=== PATIENT | female | born 1950 | race Caucasian/White ===

== ENCOUNTER 2018-04-03 15:02 | Emergency (ER) | payer MEDICARE, OTHER, SELFPAY ==
[2018-04-03 15:06] VITALS: BP 148/85; PULSE 85; RESP 20; TEMP 36.8; O2SAT 98; BMI 29.2
[2018-04-03 17:30] VITALS: BP 135/87; PULSE 76; RESP 18; O2SAT 98
[2018-04-03] MEDS: ONDANSETRON 4 MG ODT PO (17:35)
--- NOTE | 2018-04-03 17:37 | ED.BACK ---
HPI - Back Pain/Injury <Gloria Workman PA-C - Last Filed: 04/03/18 22:22> General Chief Complaint: Back Pain/Injury Stated Complaint: BAD PAIN LOWER RIGHT SIDE PAIN THROWING UP Time Seen by Provider: 04/03/18 17:24 Source: patient Mode of arrival: ambulatory Limitations: no limitations History of Present Illness HPI Narrative: This 67-year-old female comes in today due to onset of acute right flank pain at 10:00 a.m. this morning. She states that this is a constant achy pain but seems to have spasmodic episodes of really sharp pain that can radiate around to the front of her abdomen and pelvic area. She denies any exacerbating or alleviating features. She states she vomited 4 times this morning and has had nausea, so could not keep down any pain medication. She was given Zofran in the waiting room and states that her nausea is better now but pain is severe. She denies any fever, chills, or sweats. She denies any hematuria, dysuria or new urinary symptoms. She states that she has had some cold with a little bit of stuffy nose and cough, but that has not been worse today. She denies any chest pain or dyspnea. She denies any new pain or swelling in her extremities. No rashes or other complaints on systems review Related Data Home Medications Medication Instructions Recorded Confirmed HYDROCODONE/ACET 5/500 - 1 - 2 tab PO Q4-6H PRN #0 08/15/07 (Hydrocodon-Acetaminophen 5-500) trazodone 150 mg PO HS #0 08/15/07 albuterol sulfate [Ventolin HFA] 1 puff INH PRN PRN #0 03/28/16 diazepam 5 mg PO HSP PRN #0 03/28/16 calcium carbonate [Tums] 500 mg PO QDAY PRN #0 04/02/16 sennosides [senna] PO HS #0 10/27/17 Allergies Allergy/AdvReac Type Severity Reaction Status Date / Time No Known Drug Allergies Allergy Verified 04/03/18 17:34 Review of Systems <Gloria Workman PA-C - Last Filed: 04/03/18 22:22> Review of Systems All systems reviewed & are unremarkable except as noted in HPI and below PFSH <Gloria Workman PA-C - Last Filed: 04/03/18 22:22> Comment: Denies ETOH or street drugs Exam <PRADIP Francis Last Filed: 04/03/18 22:22> Narrative Exam Narrative: GENERAL APPEARANCE: Patient appears uncomfortable, in NAD HEENT: PERRL, EOMI, no scleral icterus NECK: Supple LUNGS: Clear to auscultation bilaterally. HEART: Rate and rhythm regular, normal S1 and S2, no S3 or S4. ABDOMEN: Soft, nondistended, bowel sounds present x 4 quadrants, no masses palpable, no hepatosplenomegaly. She has mild generalized tenderness, with moderate left CVAT and flank tenderness, no guarding or rebound EXTREMITIES: No edema, no cyanosis DERMATOLOGIC: No jaundice or exanthem NEUROLOGIC: Alert and oriented with normal speech and coordination Initial Vital Signs Initial Vital Signs: Vital Signs Temperature 98.3 F 04/03/18 15:06 Pulse Rate 85 04/03/18 15:06 Respiratory Rate 20 04/03/18 15:06 Blood Pressure 148/85 H 04/03/18 15:06 Pulse Oximetry 98 04/03/18 15:06 <Jose López DO - Last Filed: 04/04/18 00:13> Initial Vital Signs Initial Vital Signs: Vital Signs Temperature 98.3 F 04/03/18 15:06 Pulse Rate 85 04/03/18 15:06 Respiratory Rate 20 04/03/18 15:06 Blood Pressure 148/85 H 04/03/18 15:06 Pulse Oximetry 98 04/03/18 15:06 Course <PRADIP Francis Last Filed: 04/03/18 22:22> Additional Information: Patient felt significantly improved and was comfortable at the time of departure. Reviewed on CT she may have some small stones passing, no large stone or obstruction or other acute problem found. 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 She has pain medication at home and since nausea is resolved should be able to tolerate that as needed. She agreed to return if any acutely worsening symptoms again this weekend Orders Ordered: ED Orders 04/03/18 17:30 Complete Blood Count AUTO DIFF Stat Comprehensive Metabolic Panel Stat Lipase Stat 04/03/18 17:50 CT kidney ureter bladder (KUB) Stat Discontinued Medications Hydromorphone HCl (Dilaudid) 1 mg IV NOW ONE Stop: 04/03/18 17:51 Last Admin: 04/03/18 17:59 Dose: 1 mg Hydromorphone HCl (Dilaudid) 0.5 mg IV NOW ONE Stop: 04/03/18 19:02 Last Admin: 04/03/18 19:14 Dose: 0.5 mg Sodium Chloride (Normal Saline 0.9%) 1,000 mls @ 1,000 mls/hr IV BOLUS ONE Stop: 04/03/18 18:57 Last Infusion: 04/03/18 19:40 Dose: 0 mls/hr Admin: 04/03/18 17:58 Dose: 1,000 mls/hr Ketorolac Tromethamine (Toradol) 30 mg IV NOW ONE Stop: 04/03/18 17:51 Last Admin: 04/03/18 17:59 Dose: 30 mg Ondansetron HCl (Zofran Odt) 4 mg PO NOW ONE Stop: 04/03/18 17:35 Last Admin: 04/03/18 17:35 Dose: 4 mg Ondansetron HCl (Zofran Odt Prepack) 1 bottle MISC SEEINSTR ONE Stop: 04/03/18 19:17 Last Admin: 04/03/18 19:39 Dose: 1 bottle Vital Signs - 8 hr 04/03/18 17:30 04/03/18 18:30 04/03/18 19:44 Pulse Rate 76 71 77 Respiratory Rate 18 16 16 Blood Pressure [Left Arm] 135/87 128/70 120/68 Pulse Oximetry 98 98 98 <Jose López DO - Last Filed: 04/04/18 00:13> Orders Ordered: ED Orders 04/03/18 17:30 Complete Blood Count AUTO DIFF Stat Comprehensive Metabolic Panel Stat Lipase Stat 04/03/18 17:50 CT kidney ureter bladder (KUB) Stat Discontinued Medications Hydromorphone HCl (Dilaudid) 1 mg IV NOW ONE Stop: 04/03/18 17:51 Last Admin: 04/03/18 17:59 Dose: 1 mg Hydromorphone HCl (Dilaudid) 0.5 mg IV NOW ONE Stop: 04/03/18 19:02 Last Admin: 04/03/18 19:14 Dose: 0.5 mg Sodium Chloride (Normal Saline 0.9%) 1,000 mls @ 1,000 mls/hr IV BOLUS ONE Stop: 04/03/18 18:57 Last Infusion: 04/03/18 19:40 Dose: 0 mls/hr Admin: 04/03/18 17:58 Dose: 1,000 mls/hr Ketorolac Tromethamine (Toradol) 30 mg IV NOW ONE Stop: 04/03/18 17:51 Last Admin: 04/03/18 17:59 Dose: 30 mg Ondansetron HCl (Zofran Odt) 4 mg PO NOW ONE Stop: 04/03/18 17:35 Last Admin: 04/03/18 17:35 Dose: 4 mg Ondansetron HCl (Zofran Odt Prepack) 1 bottle MISC SEEINSTR ONE Stop: 04/03/18 19:17 Last Admin: 04/03/18 19:39 Dose: 1 bottle Vital Signs - 8 hr 04/03/18 17:30 04/03/18 18:30 04/03/18 19:44 Pulse Rate 76 71 77 Respiratory Rate 18 16 16 Blood Pressure [Left Arm] 135/87 128/70 120/68 Pulse Oximetry 98 98 98 MDM - Back Pain/Injury <Gloria Workman PA-C - Last Filed: 04/03/18 22:22> Lab Data Attestation: I reviewed the patient's lab results. Result diagrams: 04/03/18 17:30 04/03/18 17:30 Lab Results 04/03/18 04/03/18 Range/Units 17:30 17:30 WBC 11.0 (4.5-11.0) X10^3/uL RBC 4.74 (4.0-5.2) X10^6/uL Hgb 14.5 (12.0-16.0) g/dL Hct 43.2 (36-46) % MCV 91.1 (80-100) fL MCH 30.6 (26-34) PG MCHC 33.6 (30-36) % RDW 14.5 (11.6-14.8) % Plt Count 255 (150-400) X10^3/uL Neut % (Auto) 77.0 H (50-75) % Lymph % (Auto) 15.6 L (25-40) % Dickenson % (Auto) 5.7 (3-14) % Eos % (Auto) 0.6 L (2-4) % Baso % (Auto) 1.1 (0-2) % Neut # (Auto) 8500 H (2601-8776) /uL Sodium 142 (137-145) mmol/L Potassium 4.2 (3.4-5.1) mmol/L Chloride 105 (98-107) mmol/L Carbon Dioxide 28 (22-32) mmol/L BUN 13 (7-17) mg/dL Creatinine 0.60 (0.52-1.04) mg/dL Estimated GFR > 60.0 (>60) mL/min BUN/Creatinine Ratio 21.7 (6-22) Glucose 101 (80-110) mg/dL Calcium 9.4 (8.4-10.2) mg/dL Total Bilirubin 0.7 (0.2-1.3) mg/dL AST 28 (14-36) IU/L ALT 29 (9-52) IU/L Alkaline Phosphatase 101 (38-126) U/L Total Protein 7.7 (6.3-8.2) g/dL Albumin 4.5 (3.5-5.0) g/dL Globulin 3.2 (1.7-4.1) g/dL Albumin/Globulin Ratio 1.4 (1.0-2.8) Lipase 46 (23-300) U/L Urine Dip Bedside Urine Glucose Negative Bedside Urine Bilirubin - Negative Bedside Urine Ketone - Negative Urine Specific [place] 1.015 Bedside Urine Occult Blood - Negative Bedside Urine pH 8.0 Bedside Urine Protein - Negative Bedside Urine Urobilinogen - Negative Bedside Urine Nitrite - Negative Bedside Urine Leukocytes - Negative Esterase <Jose López DO - Last Filed: 04/04/18 00:13> Lab Data Lab Results 04/03/18 04/03/18 Range/Units 17:30 17:30 WBC 11.0 (4.5-11.0) X10^3/uL RBC 4.74 (4.0-5.2) X10^6/uL Hgb 14.5 (12.0-16.0) g/dL Hct 43.2 (36-46) % MCV 91.1 (80-100) fL MCH 30.6 (26-34) PG MCHC 33.6 (30-36) % RDW 14.5 (11.6-14.8) % Plt Count 255 (150-400) X10^3/uL Neut % (Auto) 77.0 H (50-75) % Lymph % (Auto) 15.6 L (25-40) % Dickenson % (Auto) 5.7 (3-14) % Eos % (Auto) 0.6 L (2-4) % Baso % (Auto) 1.1 (0-2) % Neut # (Auto) 8500 H (7328-3087) /uL Sodium 142 (137-145) mmol/L Potassium 4.2 (3.4-5.1) mmol/L Chloride 105 (98-107) mmol/L Carbon Dioxide 28 (22-32) mmol/L BUN 13 (7-17) mg/dL Creatinine 0.60 (0.52-1.04) mg/dL Estimated GFR > 60.0 (>60) mL/min BUN/Creatinine Ratio 21.7 (6-22) Glucose 101 (80-110) mg/dL Calcium 9.4 (8.4-10.2) mg/dL Total Bilirubin 0.7 (0.2-1.3) mg/dL AST 28 (14-36) IU/L ALT 29 (9-52) IU/L Alkaline Phosphatase 101 (38-126) U/L Total Protein 7.7 (6.3-8.2) g/dL Albumin 4.5 (3.5-5.0) g/dL Globulin 3.2 (1.7-4.1) g/dL Albumin/Globulin Ratio 1.4 (1.0-2.8) Lipase 46 (23-300) U/L Urine Dip Bedside Urine Glucose Negative Bedside Urine Bilirubin - Negative Bedside Urine Ketone - Negative Urine Specific [place] 1.015 Bedside Urine Occult Blood - Negative Bedside Urine pH 8.0 Bedside Urine Protein - Negative Bedside Urine Urobilinogen - Negative Bedside Urine Nitrite - Negative Bedside Urine Leukocytes - Negative Esterase Discharge Plan Departure Patient Disposition: Home Clinical Impression: Acute right flank pain, Kidney stone on right side Discharge Date/Time: 04/03/18 19:48 Interventions: ED Discharge Assessment Last Done: 04/03/18 19:38 Instructions: DI for Kidney Stones Activity Restrictions/Additional Instructions: please return as we talked about if you have acutely worsening symptoms. Since you are feeling better, it is okay for you to monitor at home. Take the antinausea medicine as needed today and tomorrow so that you can also take your pain medicine that you already have at home as needed. There are no clear problems found on your lab work today. Your CT scan showed that there might be some very small stone passing through your ureter. You did not have any large stones in your kidney on the right side, so it is possible that you have passed 1 or passing some little stones, but there is nothing that is blocking the kidney or urinary system. Please follow up with your PCP 1st thing next week if you are continuing to have any pain or nausea. Prescriptions: No Action trazodone 150 MG tablet 150 mg PO HS Qty: 0 RF: 0 HYDROCODONE/ACET 5/500 - (Hydrocodon-Acetaminophen 5-500) 1 - 2 tab PO Q4-6H PRN Qty: 0 RF: 0 albuterol sulfate [Ventolin HFA] 90 MCG/PUFF HFA aerosol inhaler 1 puff INH PRN PRNQty: 0 RF: 0 diazepam 5 MG tablet 5 mg PO HSP PRNQty: 0 RF: 0 calcium carbonate [Tums] 500 MG tablet,chewable 500 mg PO QDAY PRNQty: 0 RF: 0 sennosides [senna] 8.6 MG tablet PO HS Qty: 0 RF: 0 Referrals: Maximo Vivas MD [Primary Care Provider] - <Jose López DO - Last Filed: 04/04/18 00:13> Cosign ED Attending Rupal Attestation: I was available for consultation during this patient's emergency department encounter
--- NOTE | 2018-04-03 17:50 | DI.CT.S_ITS ---
PROCEDURE: CT KIDNEY URETER BLADDER (KUB) INDICATIONS: Right flank pain, ? stones TECHNIQUE: Noncontrast 5 mm thick sections acquired from the diaphragms to the symphysis. 5 mm thick coronal and sagittal reformats were then performed. For radiation dose reduction, the following was used: automated exposure control, adjustment of mA and/or kV according to patient size. COMPARISON: [facility], , L-SPINE WITHOUT CONTRAST, 03/08/2014, 19:48. FINDINGS: Image quality: Excellent. Lung bases: Lung bases are clear. Heart size is normal. There is a small hiatal hernia. Urinary system: Both kidneys are normal in size. No kidney stones. No hydronephrosis or perinephric fat stranding. Both ureters appear non-dilated throughout their expected courses. Multiple calcific densities in pelvis are most likely pelvic phleboliths. Bladder wall thickness is normal; no calcified bladder stones. Other solid organs: Liver is normal in size. Gallbladder is normal. Pancreas is normal in contours. Spleen is normal in size. No adrenal nodules. Peritoneum and bowel: Unenhanced bowel loops demonstrate normal wall thickness and caliber. A few colonic diverticula are noted. No active diverticulitis. No free fluid or air. Nodes and vessels: No retroperitoneal or mesenteric adenopathy by size criteria. Aorta and inferior vena cava are normal in caliber. Abdominal wall: No ventral hernias. Pelvis: No free pelvic fluid. No inguinal hernias or adenopathy. Bones: Mild non-acute compression deformity of T11. No suspicious bony lesions. 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 IMPRESSION: 1. No renal stone or hydronephrosis. Multiple calcific densities in pelvis are most likely pelvic phleboliths. Several calcifications are close to expected course of the right distal ureter. Tiny nonobstructive distal right ureteral stone(s) are felt unlikely but not definitively excluded. 2. Mild chronic compression deformity of T11. 3. Mild diverticulosis without diverticulitis. Dictated by: Yessenia Crespo M.D. on 04/03/2018 at 18:25 Approved by: Yessenia Crespo M.D. on 04/03/2018 at 18:33
[2018-04-03 17:57] LABS: Add Manual Diff / Slide Review NO; Basophils Percent Auto 1.1 % (0-2); Eosinophils Percent Auto 0.6 % (2-4); Hematocrit 43.2 % (36-46); Hemoglobin 14.5 g/dL (12.0-16.0); Lymphocytes Percent Auto 15.6 % (25-40); Mean Corpuscular HGB Conc 33.6 % (30-36); Mean Corpuscular Hemoglobin 30.6 PG (26-34); Mean Corpuscular Volume 91.1 fL (80-100); Monocytes Percent Auto 5.7 % (3-14); Neutrophils Absolute Auto 8500 /uL (3000-5900); Platelet Count 255 X10^3/uL (150-400); Red Blood Cell Count 4.74 X10^6/uL (4.0-5.2); Red Cell Distribution Width 14.5 % (11.6-14.8)
[2018-04-03] MEDS: SODIUM CHLORIDE 0.9% 1,000 ML 1000 ML IV (17:58)
[2018-04-03] MEDS: KETOROLAC 60 MG/2 ML VIAL 30 MG IV (17:59)
[2018-04-03] MEDS: HYDROMORPHONE 1 MG INJ IV (17:59)
[2018-04-03 18:03] LABS: Alanine Aminotransferase 29 IU/L (9-52); Albumin 4.5 g/dL (3.5-5.0); Albumin Globulin Ratio 1.4 (1.0-2.8); Alkaline Phosphatase 101 U/L (38-126); Aspartate Aminotransferase 28 IU/L (14-36); BUN Creatinine Ratio 21.7 (6-22); Bilirubin Total 0.7 mg/dL (0.2-1.3); Blood Urea Nitrogen 13 mg/dL (7-17); Calcium 9.4 mg/dL (8.4-10.2); Carbon Dioxide 28 mmol/L (22-32); Chloride 105 mmol/L (98-107); Estimated Glomerular Filt Rate > 60.0 mL/min (>60); Globulin 3.2 g/dL (1.7-4.1); Glucose 101 mg/dL (80-110); HEMOLYSIS < 15 (0-50); Lipase 46 U/L (23-300); Potassium 4.2 mmol/L (3.4-5.1); Sodium 142 mmol/L (137-145); Total Protein 7.7 g/dL (6.3-8.2)
--- NOTE | 2018-04-03 18:14 | PC.NURSE ---
Patient returned from imaging via stretcher.
[2018-04-03 18:30] VITALS: BP 128/70; PULSE 71; RESP 16; O2SAT 98
[2018-04-03] MEDS: HYDROMORPHONE 1 MG INJ 0.5 MG IV (19:14)
[2018-04-03] MEDS: ONDANSETRON 4 MG ODT PREPACK 1 BOTTLE MISC (19:39)
[2018-04-03 19:44] VITALS: BP 120/68; PULSE 77; RESP 16; O2SAT 98
== END 2018-04-03 19:48 | disposition home or self-care (01) ==
PROVIDERS: Emergency Provider Internal Medicine; PCP Family Medicine
DX: R10.9 Unspecified abdominal pain (principal); N20.0 Calculus of kidney
CPT/HCPCS: 36591; 74176; 80053; 81003; 83690; 85025; 96361; 96374; 96375; 96376; 99283; 99284; J1170; J1885

== ENCOUNTER → 2018-06-07 12:54 | Outpatient (CLI) | payer MEDICARE, OTHER, SELFPAY ==
--- NOTE | 2018-06-07 | DI.RAD.S_ITS ---
PROCEDURE: XR SINUS MIN 3V INDICATIONS: ACUTE RECURRENT SINUSITIS TECHNIQUE: 3 views of the sinuses were acquired. COMPARISON: [facility], , SINUSES MINIMUM 3 VIEWS, 09/21/2013, 14:23. FINDINGS: Sinuses: The visualized sinuses demonstrate no air-fluid levels or mucosal thickening. The visualized mastoids also appear clear. Bones: No suspicious bony lesions. Nasal septum is midline. IMPRESSION: Negative exam as above Dictated by: Kervin Medrano M.D. on 06/07/2018 at 13:48 Approved by: Kervin Medrano M.D. on 06/07/2018 at 13:49
== END ==
PROVIDERS: PCP Family Medicine; Visit Provider Family Medicine
DX: J01.01 Acute recurrent maxillary sinusitis (principal)
CPT/HCPCS: 70220

== ENCOUNTER → 2020-01-17 12:01 | Outpatient (CLI) | payer MEDICARE, OTHER, SELFPAY ==
--- NOTE | 2020-01-17 | DI.RAD.S_ITS ---
PROCEDURE: XR CHEST 2V INDICATIONS: Moderate persistent asthma, uncomplicated TECHNIQUE: 2 views of the chest were acquired. COMPARISON: None available for review. FINDINGS: Surgical changes and devices: None. Lungs and pleura: Lungs are clear. No pleural effusions or pneumothorax. Mediastinum: Mediastinal contours are normal. Heart size is normal. Thoracic aorta is tortuous in course. Bones and chest wall: No suspicious bony abnormalities. Soft tissues appear unremarkable. IMPRESSION: Chest without acute cardiopulmonary abnormalities. Dictated by: Cheng Patel M.D. on 01/17/2020 at 17:55 Approved by: Cheng Patel M.D. on 01/17/2020 at 17:56
== END ==
PROVIDERS: PCP Family Medicine; Referring Provider Family Medicine; Visit Provider Family Medicine
DX: J45.40 Moderate persistent asthma, uncomplicated (principal); I10 Essential (primary) hypertension
CPT/HCPCS: 71046

== ENCOUNTER → 2020-01-25 11:13 | Outpatient (CLI) | payer MEDICARE, OTHER, SELFPAY ==
--- NOTE | 2020-01-25 | DI.MG.S_ITS ---
BILATERAL DIGITAL SCREENING MAMMOGRAM 3D/2D WITH CAD: 01/25/2020 CLINICAL: Routine screening. Family history of breast cancer. Comparison is made to exams dated: 10/10/2016 mammogram, 06/01/2013 mammogram, and 05/27/2011 mammogram - [facility]. The tissue of both breasts is heterogeneously dense. This may lower the sensitivity of mammography. Current study was also evaluated with a Computer Aided Detection (CAD) system. There are benign vascular calcifications in both breasts. No significant masses, calcifications, or other findings are seen in either breast. There has been no significant interval change. IMPRESSION: There is no mammographic evidence of malignancy. A 1 year screening mammogram is recommended. This exam was interpreted at Station ID: [id number]. NOTE: For mammograms, a report in lay terms will be sent to the patient. Approximately 15% of breast malignancies will not be visualized mammographically. In the management of a palpable breast mass, a negative mammogram must not discourage biopsy of a clinically suspicious lesion. Electronically Signed By: Heather rowland/shanda:01/25/2020 12:58:36 letter sent: Normal Exam ACR BI-RADS Category 2: Benign Finding(s) 3342F
== END ==
PROVIDERS: PCP Family Medicine; Referring Provider Family Medicine; Visit Provider Family Medicine
DX: Z12.31 Encounter for screening mammogram for malignant neoplasm of breast (principal); Z80.3 Family history of malignant neoplasm of breast
CPT/HCPCS: 77063; 77067

== ENCOUNTER 2020-02-13 22:02 | Emergency (ER) | payer MEDICARE, OTHER, SELFPAY ==
--- NOTE | 2020-02-13 22:03 | ED_ITS ---
HPI - Extremity Injury (Lower) General Chief Complaint: Extremity Injury, Lower Stated Complaint: LEFT ANKLE INJURY Time Seen by Provider: 02/13/20 22:03 Source: patient Mode of arrival: Wheelchair Limitations: no limitations History of Present Illness HPI Narrative: 69-year-old female nonsmoker with noncontributory medical history presents by herself, in a wheelchair and a chief complaint of a left ankle injury suffered just prior to arrival. She was walking in her yd and stepped in a hole that she did not see, she inverted her left ankle and heard a pop. She denies any numbness, tingling or weakness. She states it hurts worse when she ambulates and improves with rest. She denies any knee or hip pain. She did not injure anything else when she fell. MD complaint: ankle injury Onset (ago): hour(s) Injury: Left: ankle Type of Injury: inversion Place: street/outdoors Severity: moderate Relieving factors: rest Exacerbating factors: weight bearing, movement and palpation Context: fall Associated symptoms: snap/pop sensation Other symptoms: none Treatments prior to arrival: cold therapy and bandage Related Data Home Medications Medication Instructions Recorded Confirmed HYDROCODONE/ACET 5/500 - 1 - 2 tab PO Q4-6H PRN #0 08/15/07 (Hydrocodon-Acetaminophen 5-500) trazodone 150 mg PO HS #0 08/15/07 albuterol sulfate [Ventolin HFA] 1 puff INH PRN PRN #0 03/28/16 diazepam 5 mg PO HSP PRN #0 03/28/16 calcium carbonate [Tums] 500 mg PO QDAY PRN #0 04/02/16 sennosides [senna] PO HS #0 10/27/17 Allergies Allergy/AdvReac Type Severity Reaction Status Date / Time No Known Drug Allergies Allergy Verified 04/03/18 17:34 Review of Systems Constitutional Constitutional: Denies chills, Denies fatigue, Denies fever(s), Denies frequent falls, Denies lethargy and Denies weakness Eyes Eyes: Denies change in vision, Denies eye discharge, Denies irritation and Denies loss of vision ENT Ears, Nose, Mouth, and Throat: Denies change in voice, Denies dizziness, Denies neck pain, Denies sore throat and Denies throat swelling Cardiovascular Cardiovascular: Denies chest pain, Denies irregular heart rhythm, Denies lightheadedness, Denies palpitations, Denies dyspnea, Denies dyspnea on exertion and Denies orthopnea Respiratory Respiratory: Denies cough, Denies dyspnea, Denies dyspnea on exertion and Denies wheezing Gastrointestinal Gastrointestinal: Denies abdominal pain, Denies change in bowel habits, Denies diarrhea, Denies nausea and Denies vomiting Musculoskeletal Musculoskeletal: Reports arthralgias, Reports joint swelling, Reports limited range of motion, Denies neck pain and Denies numbness Integumentary/Breasts Skin/Breast: Denies pruritus, Denies erythema, Denies rash and Denies wounds Neurologic Neurologic: Denies behavioral changes, Denies confusion, Denies dizziness, Denies frequent falls, Denies loss of vision, Denies numbness and Denies weakness Psychiatric Psychiatric: Denies anxiety, Denies behavioral changes, Denies confusion, Denies depression, Denies homicidal ideation and Denies suicidal ideation Endocrine Endocrine: Denies fatigue, Denies flushing and Denies palpitations Hematologic/Lymphatic Hematologic/Lymphatic: Denies easy bruising Allergic/Immunologic Allergic/Immunologic: Denies urticaria, Denies throat swelling and Denies wheezing Patient History Medical History History of spinal fracture (Resolved) Migraine (Chronic) Surgical History History of (Resolved) History of facial fracture repair (Resolved) Hx of lumbosacral spine surgery (Resolved) Social History Smoking Status: Never smoker Smoking Status: Never smoker Substance Use Type: does not use Exam Narrative Exam Narrative: GENERAL: [69] year old patient appears stated age. Well- nourished, well-developed patient, in mild distress. HEAD: Atraumatic. Normocephalic. EYES: Pupils equal round and reactive. Extraocular motions intact. No scleral icterus. No injection or drainage. ENT: Nose without bleeding, purulent drainage. Throat without erythema, tonsillar hypertrophy or exudate. Airway patent. NECK: Trachea midline. Non tender CARDIOVASCULAR: Regular rate and rhythm without murmurs, gallops, or rubs. RESPIRATORY: Clear to auscultation. Breath sounds equal bilaterally. No wheezes, rales, or rhonchi. GASTROINTESTINAL: Abdomen soft, non-tender, nondistended. EXTREMITIES: Full but painful range of motion of left ankle without evidence of ligamentous instability. Most tender to palpation just inferior to the medial malleolus. Minimal swelling surrounding lateral malleolus. No step-off at Achilles, calf squeeze results and plantar flexion. These injuries are closed, isolated a neurovascularly intact BACK: Nontender without deformity or crepitance. No flank tenderness. NEURO: AOx3. SKIN: No rash or erythema of visible areas Initial Vital Signs Initial Vital Signs: Vital Signs Temperature 97.4 F L 02/13/20 22:12 Pulse Rate 118 H 02/13/20 22:12 Respiratory Rate 22 02/13/20 22:12 Blood Pressure 176/77 H 02/13/20 22:12 Pulse Oximetry 99 02/13/20 22:12 Procedures Orthopedic Splinting/Casting Injury #1: Side: left Lower Extremity Injury Location: ankle Lower Extremity Immobilizer: boot orthosis Post splinting neuro exam: intact Post splinting vascular exam: intact Placed by: Nursing Additional Comments: patient has her own walker and crutches Course Orders Ordered: ED Orders 02/13/20 22:10 XR ankle LT min 3V Stat Vital Signs Vital signs: Vital Signs - 8 hr 02/13/20 22:12 02/13/20 23:02 Temperature 97.4 F L Pulse Rate 118 H 89 Respiratory Rate 22 18 Blood Pressure 176/77 H Pulse Oximetry 99 99 MDM - Extremity Injury (Lower) Imaging Data Extremity x-ray #1: Attestation: I personally reviewed and interpreted this imaging study as follows: My Impression: No yenni abnormality Discharge Plan Departure Patient Disposition: Home Clinical Impression: Ankle sprain and strain Discharge Date/Time: 02/13/20 23:02 Instructions: Ankle Sprain Activity Restrictions/Additional Instructions: *You have been diagnosed with [left ankle sprain *What to do: *Take medications as directed *Follow up with your primary care provider in 2-3 days, call for an appointment. Let them know you were seen in the Emergency Department and that we ask that you be seen in follow up *Return to ER if you should have any new, worsening or concerning symptoms Radiographic study has been interpreted by an emergency physician. The official diagnosis by radiology will be performed within the next 24 hours and should there be any change in outcome we will notify you of how to proceed. Prescriptions: No Action trazodone 150 MG tablet 150 mg PO HS Qty: 0 RF: 0 HYDROCODONE/ACET 5/500 - (Hydrocodon-Acetaminophen 5-500) 1 - 2 tab PO Q4-6H PRN Qty: 0 RF: 0 albuterol sulfate [Ventolin HFA] 90 MCG/PUFF HFA aerosol inhaler 1 puff INH PRN PRNQty: 0 RF: 0 diazepam 5 MG tablet 5 mg PO HSP PRNQty: 0 RF: 0 calcium carbonate [Tums] 500 MG tablet,chewable 500 mg PO QDAY PRNQty: 0 RF: 0 sennosides [senna] 8.6 MG tablet PO HS Qty: 0 RF: 0 Referrals: Maximo Vivas MD [Primary Care Provider] -
--- NOTE | 2020-02-13 22:10 | DI.RAD.S_ITS ---
PROCEDURE: XR ANKLE LT MIN 3V INDICATIONS: fall with ankle pain TECHNIQUE: 3 views of the ankle were acquired. COMPARISON: None. FINDINGS: Bones: No fractures or dislocations. Ankle mortise is normally aligned. No suspicious bony lesions. Soft tissues: No tibiotalar joint effusion. Achilles tendon appears normal. Lateral soft tissue swelling is noted and ligamentous injury cannot be excluded. IMPRESSION: No fracture. No osseous lesion. If symptoms and/or clinical suspicion for pathology persists, further assessment with repeat radiographs (7-10 days) or advanced imaging (e.g. CT, MRI or bone scan) may be helpful. Dictated by: Coty Salomon MD, PhD on 02/14/2020 at 8:32 Approved by: Coty Salomon MD, PhD on 02/14/2020 at 8:40
[2020-02-13 22:12] VITALS: BP 176/77; PULSE 118; RESP 22; TEMP 36.3; O2SAT 99
--- NOTE | 2020-02-13 22:23 | PC.NURSE ---
Stepped in deep hole outside around 11am, felt a pop and heard a snap. Increase pain throughout day. Unable to bear weight without pain. tender to palpation on lower leg, obvious swelling noted.
[2020-02-13 23:02] VITALS: PULSE 89; RESP 18; O2SAT 99
== END 2020-02-13 23:02 | disposition home or self-care (01) ==
PROVIDERS: Emergency Provider Emergency Medicine; PCP Family Medicine
DX: S93.402A Sprain of unspecified ligament of left ankle, initial encounter (principal); S96.912A Strain of unspecified muscle and tendon at ankle and foot level, left foot, initial encounter; X58.XXXA Exposure to other specified factors, initial encounter
CPT/HCPCS: 73610; 99283

== ENCOUNTER → 2020-03-08 09:14 | Outpatient (CLI) | payer MEDICARE, OTHER, SELFPAY ==
--- NOTE | 2020-03-08 | DI.RAD.S_ITS ---
PROCEDURE: XR LUMBAR SPINE 2-3V INDICATIONS: PAIN TECHNIQUE: 3 views of the lumbar spine were acquired. COMPARISON: [facility], , L-SPINE 2-3 VIEWS, 04/02/2016, 13:35. FINDINGS: Bones: 5 [id number] vertebrae are present. There is very mild rightward curvature of lumbar spine centered at L4 level. Degenerative endplate changes and bilateral facet arthrosis throughout lumbar spine is seen more prominent at L4-5 and L5-S1 levels. No vertebral body compression fractures. No suspicious bony lesions. Soft tissues: Overlying bowel gas pattern is normal. No suspicious soft tissue calcifications. IMPRESSION: Degenerative disc disease throughout lumbar spine more prominent at L4-5 and L5-S1 levels. Mild scoliosis as above. No compression fracture or spondylolisthesis. Dictated by: Monico Reed M.D. on 03/08/2020 at 10:14 Approved by: Monico Reed M.D. on 03/08/2020 at 10:30
--- NOTE | 2020-03-08 | DI.RAD.S_ITS ---
PROCEDURE: XR ANKLE LT MIN 3V INDICATIONS: PAIN TECHNIQUE: 3 views of the ankle were acquired. COMPARISON: [facility], CR, XR ANKLE LT MIN 3V, 02/13/2020, 22:16. FINDINGS: Bones: No fractures or dislocations. Ankle mortise is normally aligned. Osteoarthritic changes are noted involving anterior aspect of tibiotalar joint. No suspicious bony lesions. Soft tissues: No tibiotalar joint effusion. Achilles tendon appears normal. IMPRESSION: Mild anterior tibiotalar joint osteoarthritis. No fracture or dislocation. Dictated by: Monico Reed M.D. on 03/08/2020 at 10:30 Approved by: Monico Reed M.D. on 03/08/2020 at 10:40
--- NOTE | 2020-03-08 | DI.RAD.S_ITS ---
PROCEDURE: XR HIP W PEL IF DONE RT 2V INDICATIONS: PAIN TECHNIQUE: 4 views of the hip were acquired. COMPARISON: [facility], , HIP 2V LEFT, 02/27/2014, 16:33. FINDINGS: Bones: No fractures or dislocations. Mild to moderate right hip joint osteoarthritis is seen. No evidence of avascular necrosis of femoral heads. No suspicious bony lesions. The visualized pelvic ring appears intact. Soft tissues: No suspicious soft tissue calcifications or masses. IMPRESSION: Mild to moderate right hip joint osteoarthritis. No fracture or dislocation. No evidence of avascular necrosis. Dictated by: Monico Reed M.D. on 03/08/2020 at 10:13 Approved by: Monico Reed M.D. on 03/08/2020 at 10:14
== END ==
PROVIDERS: PCP Family Medicine; Referring Provider Family Medicine; Visit Provider Family Medicine
DX: M54.5 Low back pain (principal); M16.11 Unilateral primary osteoarthritis, right hip; M25.572 Pain in left ankle and joints of left foot; M19.072 Primary osteoarthritis, left ankle and foot; M51.36 Other intervertebral disc degeneration, lumbar region; M51.37 Other intervertebral disc degeneration, lumbosacral region; M41.9 Scoliosis, unspecified
CPT/HCPCS: 72100; 73502; 73610

== ENCOUNTER 2020-07-17 17:37 | Inpatient (IN) | payer MEDICARE, OTHER, SELFPAY ==
[2020-07-17 17:40] VITALS: BP 158/87; RESP 18; O2SAT 98
--- NOTE | 2020-07-17 17:46 | DI.RAD.S_ITS ---
PROCEDURE: XR CHEST 1V INDICATIONS: chest pain TECHNIQUE: One view of the chest was acquired. COMPARISON: [facility], CR, XR CHEST 2V, 01/17/2020, 11:55. FINDINGS: Surgical changes and devices: None. Lungs and pleura: Diffuse ill-defined ground-glass patchy opacities. Scott B lines seen in the right lung base. . No pleural effusions or pneumothorax. Mediastinum: Mediastinal contours appear normal. Heart size is normal. Bones and chest wall: Lateral curvature of the spine and discogenic changes. IMPRESSION: Increased diffuse ground-glass opacities and Scott B lines suggesting early pulmonary edema. Technically, atypical/viral pneumonia in the differential. If there is persistent clinical diagnostic uncertainty, continued surveillance with short interval chest radiographs after treatment is recommended. Dictated by: Kervin Medrano M.D. on 07/17/2020 at 18:05 Approved by: Kervin Medrano M.D. on 07/17/2020 at 18:07
[2020-07-17 18:16] LABS: INR 1.1 (0.9-1.3); Prothrombin Time 12.5 SECONDS (10.1-12.7)
[2020-07-17 18:19] LABS: PTT Partial Thromboplastin Tim 35 SECONDS (26.4-36.2)
[2020-07-17 18:21] LABS: Alanine Aminotransferase 13 IU/L (<35); Albumin 4.3 g/dL (3.5-5.0); Albumin Globulin Ratio 1.4 (1.0-2.8); Alkaline Phosphatase 67 U/L (38-126); Aspartate Aminotransferase 28 IU/L (14-36); Bilirubin Total 0.5 mg/dL (0.2-1.3); Blood Urea Nitrogen 11 mg/dL (7-17); Calcium 9.7 mg/dL (8.4-10.2); Carbon Dioxide 30 mmol/L (22-32); Chloride 103 mmol/L (98-107); Creatine Kinase 107 U/L (30-135); Estimated Glomerular Filt Rate > 60.0 mL/min (>60); Globulin 3.1 g/dL (1.7-4.1); Glucose 103 mg/dL (80-110); HEMOLYSIS 49 (0-50); Lipase 44 U/L (23-300); Potassium 3.5 mmol/L (3.4-5.1); Sodium 140 mmol/L (137-145); Total Protein 7.4 g/dL (6.3-8.2)
[2020-07-17 18:24] LABS: Add Manual Diff / Slide Review NO; Basophils Absolute Auto 100 /uL (0-100); Basophils Percent Auto 1.1 % (0-2); Eosinophils Absolute Auto 200 /uL (0-450); Eosinophils Percent Auto 2.3 % (2-4); Hematocrit 40.1 % (36-46); Hemoglobin 13.4 g/dL (12.0-16.0); Lymphocytes Absolute Auto 1400 /uL (1100-4500); Lymphocytes Percent Auto 13.5 % (25-40); Mean Corpuscular HGB Conc 33.3 % (30-36); Mean Corpuscular Hemoglobin 30.8 PG (26-34); Mean Corpuscular Volume 92.3 fL (80-100); Monocytes Absolute Auto 700 /uL (0-900); Monocytes Percent Auto 6.5 % (3-14); Neutrophils Absolute Auto 7800 /uL (1500-7000); Neutrophils Percent Auto 76.6 % (50-75); Platelet Count 254 X10^3/uL (150-400); Red Blood Cell Count 4.34 X10^6/uL (4.0-5.2); Red Cell Distribution Width 14.3 % (11.6-14.8); White Blood Cell Count 10.3 X10^3/uL (4.5-11.0)
[2020-07-17 18:33] LABS: Troponin I 0.025 ng/mL (0.01-0.034)
[2020-07-17 18:36] LABS: CKMB % Relative Index 1.1 % (1.5-5.0); Creatine Kinase MB 1.16 ng/mL (<2.37)
[2020-07-17 19:16] LABS: COVID19 -Nasal RAPID Negative (Negative)
[2020-07-17 19:17] LABS: NT-proBNP (BNP-Adult 18+) 1480 pg/mL (<125)
--- NOTE | 2020-07-17 19:32 | ED.CHESTPAIN ---
HPI - Chest Pain General Chief Complaint: Chest Pain Stated Complaint: SOB,Chest Pressure, Sleepless Time Seen by Provider: 07/17/20 17:59 Source: patient Mode of arrival: Ambulatory Limitations: no limitations History of Present Illness HPI narrative: Patient is a 70-year-old female. No prior cardiac history. Here for evaluation of shortness of breath and chest pressure. She states that she has had shortness of breath with exertion over the past several weeks and specifically over the past week. States she cannot lie flat because she is gasping for air. States she has to stop with going up a flight of stairs. Has no lower extremity swelling. Has not done anything about her symptoms prior to arrival. She came into the emergency department today upon her chin by family members. She does have a pulse oximeter at home and states that she occasionally has her oxygen saturations in the mid upper 80s. She also states that her heart rate varies from the 90s to 130s. Related Data Home Medications Medication Instructions Recorded Confirmed albuterol sulfate [Ventolin HFA] 1 puff INH PRN PRN #0 03/28/16 07/17/20 sennosides [senna] 17.2 mg PO HS #0 10/27/17 07/17/20 alprazolam 0.125 mg PO QPM 07/17/20 07/17/20 cyclobenzaprine 10 mg PO QPM 07/17/20 07/17/20 docusate sodium [Colace] 200 mg PO DAILY 07/17/20 07/17/20 trazodone 300 mg PO QPM 07/17/20 07/17/20 Allergies Allergy/AdvReac Type Severity Reaction Status Date / Time No Known Drug Allergies Allergy Verified 04/03/18 17:34 Review of Systems Constitutional Constitutional: Denies chills, Denies fatigue, Denies fever(s) and Denies headache(s) ENT Ears, Nose, Mouth, and Throat: Denies headache(s) Cardiovascular Cardiovascular: Reports chest pain, Denies rapid heart rate, Reports dyspnea, Reports dyspnea on exertion and Reports orthopnea Respiratory Respiratory: Denies cough, Reports dyspnea and Reports dyspnea on exertion Gastrointestinal Gastrointestinal: Denies abdominal pain, Denies nausea and Denies vomiting Genitourinary Genitourinary: Denies dysuria Genitourinary: Denies dysuria Musculoskeletal Musculoskeletal: Denies arthralgias and Denies myalgias Integumentary/Breasts Skin/Breast: Denies lesions and Denies rash Neurologic Neurologic: Denies behavioral changes and Denies headache(s) Psychiatric Psychiatric: Denies behavioral changes Endocrine Endocrine: Denies fatigue Hematologic/Lymphatic Hematologic/Lymphatic: Denies easy bleeding and Denies easy bruising Allergic/Immunologic Allergic/Immunologic: Denies urticaria Patient History Medical History History of spinal fracture Migraine Surgical History History of History of facial fracture repair Hx of lumbosacral spine surgery Social History household members: family Smoking Status: Never smoker alcohol intake: never Smoking Status: Never smoker Substance Use Type: does not use Exam Initial Vital Signs Initial Vital Signs: Vital Signs Respiratory Rate 18 07/17/20 17:40 Blood Pressure 158/87 H 07/17/20 17:40 Pulse Oximetry 98 07/17/20 17:40 Const General: cooperative and comfortable Limitations: mental status not altered HENMT Head: normal to inspection and normocephalic Resp Effort & Inspection: not tachypneic Auscultation: clear to auscultation bilaterally Cardio Rate: tachycardic Rhythm: regular rhythm Pulses: radial pulses present GI Inspection: non-distended Palpation: soft Skin Lesions: no lesions Rashes: no rashes Neuro General: patient alert, patient awake and patient oriented x3 Cognition: normal cognition Speech: speech normal Extrem General: capillary refill normal and No edema Psych Appearance: grossly normal and well kempt Course Orders Ordered: ED Orders 07/17/20 17:46 XR chest 1V Stat 07/17/20 17:51 EKG-12 Lead Stat 07/17/20 17:58 Complete Blood Count AUTO DIFF Stat Comprehensive Metabolic Panel Stat Lipase Stat NT-proBNP (BNP-Adult 18+) Stat Partial Thromboplastin Time Stat Prothrombin Time INR Stat Troponin & CK Cardiac Panel Stat 07/17/20 18:50 COVID19 Stat 07/17/20 19:32 CT angio chest PE protocol Stat 07/17/20 20:56 Troponin & CK Cardiac Panel Stat Acetaminophen (Acetaminophen 325 Mg Tablet) 650 mg PO Q6HR PRN PRN Reason: Fever/Mild Pain (1-3) Al Hydrox/Mg Hydrox/Simethicone (Mag Hydrox/Alum/Simeth 30 Ml Udc) 30 ml PO Q6HR PRN PRN Reason: Dyspepsia Albuterol (Albuterol Hfa Mdi 60 Puff/8 Gm Inhaler) 1 puff INH PRN PRN PRN Reason: Shortness Of Breath Alprazolam (Alprazolam 0.25 Mg Tablet) 0.125 mg PO QPM [facility] Cyclobenzaprine HCl (Cyclobenzaprine 10 Mg Tablet) 10 mg PO QPM JUDIE Docusate Sodium (Docusate 100 Mg Capsule) 100 mg PO BID PRN PRN Reason: constipation Enoxaparin Sodium (Enoxaparin 40 Mg/0.4 Ml Syringe) 40 mg SUBCUT DAILY [facility] Furosemide (Furosemide 20 Mg Tablet) 20 mg PO DAILY [facility] Ibuprofen (Ibuprofen 600 Mg Tablet) 600 mg PO Q6HR PRN PRN Reason: Fever/Mild Pain (1-3) Lisinopril (Lisinopril 10 Mg Tablet) 10 mg PO DAILY [facility] Naloxone HCl (Naloxone 0.4 Mg/Ml Vial) 0.2 mg IV Q2MIN PRN PRN Reason: Opiate Reversal Ondansetron HCl (Ondansetron 4 Mg Odt) 4 mg PO Q8HR PRN PRN Reason: Nausea And Vomiting Sennosides (Sennosides 8.6 Mg Tablet) 17.2 mg PO BEDTIME PRN PRN Reason: constipation Sennosides (Sennosides 8.6 Mg Tablet) 17.2 mg PO BEDTIME JUDIE Trazodone HCl (Trazodone 50 Mg Tablet) 300 mg PO QPM JUDIE Discontinued Medications Alprazolam (Alprazolam 0.25 Mg Tablet) 0.125 mg PO QPM JUDIE Alprazolam (Alprazolam 0.25 Mg Tablet) 0.125 mg PO NOW ONE Stop: 07/18/20 01:20 Cyclobenzaprine HCl (Cyclobenzaprine 10 Mg Tablet) 10 mg PO QPM [facility] Docusate Sodium (Docusate 100 Mg Capsule) 200 mg PO DAILY [facility] Furosemide (Furosemide 100 Mg/10 Ml Vial) 60 mg IV NOW ONE Stop: 07/17/20 21:40 Last Admin: 07/17/20 21:49 Dose: 60 mg Documented by: AYAKA Furosemide (Furosemide 20 Mg Tablet) 20 mg PO BID JUDIE Nitroglycerin (Nitroglycerin Oint 1 Inch/Gm Oint...G.) 1 inch TOP NOW ONE Stop: 07/17/20 23:29 Trazodone HCl (Trazodone 50 Mg Tablet) 300 mg PO QPM JUDIE Trazodone HCl (Trazodone 50 Mg Tablet) 300 mg PO NOW ONE Stop: 07/18/20 01:18 Vital Signs Vital signs: Vital Signs - 8 hr 07/17/20 20:30 07/17/20 21:04 07/17/20 21:30 Pulse Rate 119 H 119 H Respiratory Rate 22 22 Blood Pressure 153/100 H Pulse Oximetry 91 91 MDM - Chest Pain Lab Data Attestation: I reviewed the patient's lab results. Result diagrams: 07/17/20 17:58 07/17/20 17:58 Labs: Lab Results 07/17/20 07/17/20 07/17/20 Range/Units 17:58 17:58 17:58 WBC 10.3 (4.5-11.0) X10^3/uL RBC 4.34 (4.0-5.2) X10^6/uL Hgb 13.4 (12.0-16.0) g/dL Hct 40.1 (36-46) % MCV 92.3 (80-100) fL MCH 30.8 (26-34) PG MCHC 33.3 (30-36) % RDW 14.3 (11.6-14.8) % Plt Count 254 (150-400) X10^3/uL Neut % (Auto) 76.6 H (50-75) % Lymph % (Auto) 13.5 L (25-40) % [place] % (Auto) 6.5 (3-14) % Eos % (Auto) 2.3 (2-4) % Baso % (Auto) 1.1 (0-2) % Neut # (Auto) 7800 H (6935-6439) /uL Lymph # (Auto) 1400 (3637-9689) /uL [place] # (Auto) 700 (0-900) /uL Eos # (Auto) 200 (0-450) /uL Baso # (Auto) 100 (0-100) /uL PT 12.5 (10.1-12.7) SECONDS INR 1.1 (0.9-1.3) APTT 35 (26.4-36.2) SECONDS Sodium 140 (137-145) mmol/L Potassium 3.5 (3.4-5.1) mmol/L Chloride 103 (98-107) mmol/L Carbon Dioxide 30 (22-32) mmol/L BUN 11 (7-17) mg/dL Creatinine 0.58 (0.52-1.04) mg/dL Estimated GFR > 60.0 (>60) mL/min BUN/Creatinine Ratio 19.0 (6-22) Glucose 103 (80-110) mg/dL Calcium 9.7 (8.4-10.2) mg/dL Total Bilirubin 0.5 (0.2-1.3) mg/dL AST 28 (14-36) IU/L ALT 13 (<35) IU/L Alkaline Phosphatase 67 (38-126) U/L Total Creatine Kinase 107 (30-135) U/L CK-MB (CK-2) 1.16 (<2.37) ng/mL CK-MB (CK-2) Rel Index 1.1 L (1.5-5.0) % Troponin I 0.025 (0.01-0.034) ng/mL NT-Pro-B Natriuret Pep (<125) pg/mL Total Protein 7.4 (6.3-8.2) g/dL Albumin 4.3 (3.5-5.0) g/dL Globulin 3.1 (1.7-4.1) g/dL Albumin/Globulin Ratio 1.4 (1.0-2.8) Lipase 44 (23-300) U/L COVID-19 PCR (Negative) 07/17/20 07/17/20 07/17/20 Range/Units 17:58 18:50 20:56 WBC (4.5-11.0) X10^3/uL RBC (4.0-5.2) X10^6/uL Hgb (12.0-16.0) g/dL Hct (36-46) % MCV (80-100) fL MCH (26-34) PG MCHC (30-36) % RDW (11.6-14.8) % Plt Count (150-400) X10^3/uL Neut % (Auto) (50-75) % Lymph % (Auto) (25-40) % [place] % (Auto) (3-14) % Eos % (Auto) (2-4) % Baso % (Auto) (0-2) % Neut # (Auto) (1565-4003) /uL Lymph # (Auto) (0879-7578) /uL [place] # (Auto) (0-900) /uL Eos # (Auto) (0-450) /uL Baso # (Auto) (0-100) /uL PT (10.1-12.7) SECONDS INR (0.9-1.3) APTT (26.4-36.2) SECONDS Sodium (137-145) mmol/L Potassium (3.4-5.1) mmol/L Chloride (98-107) mmol/L Carbon Dioxide (22-32) mmol/L BUN (7-17) mg/dL Creatinine (0.52-1.04) mg/dL Estimated GFR (>60) mL/min BUN/Creatinine Ratio (6-22) Glucose (80-110) mg/dL Calcium (8.4-10.2) mg/dL Total Bilirubin (0.2-1.3) mg/dL AST (14-36) IU/L ALT (<35) IU/L Alkaline Phosphatase (38-126) U/L Total Creatine Kinase 100 (30-135) U/L CK-MB (CK-2) TNP (<2.37) ng/mL CK-MB (CK-2) Rel Index TNP (1.5-5.0) % Troponin I 0.023 (0.01-0.034) ng/mL NT-Pro-B Natriuret Pep 1480 H (<125) pg/mL Total Protein (6.3-8.2) g/dL Albumin (3.5-5.0) g/dL Globulin (1.7-4.1) g/dL Albumin/Globulin Ratio (1.0-2.8) Lipase (23-300) U/L COVID-19 PCR Negative (Negative) Imaging Data Chest x-ray: Radiologist's Impression: [address] [id number] ReportSigned Patient: Ava Lynn FMR#: [id number]: 1950cct:[id number]/Sex: 70 / FDate of Service: 07/17/20Lo: EDAccession Number: [id number] Procedure: XR chest 1V Ordering Provider: Sandra Connors D.O. PROCEDURE: XR CHEST 1V INDICATIONS: chest pain TECHNIQUE: One view of the chest was acquired. COMPARISON: [facility], , XR CHEST 2V, 01/17/2020, 11:55. FINDINGS: Surgical changes and devices: None. Lungs and pleura: Diffuse ill-defined ground-glass patchy opacities. Scott B lines seen in the right lung base. . No pleural effusions or pneumothorax. Mediastinum: Mediastinal contours appear normal. Heart size is normal. Bones and chest wall: Lateral curvature of the spine and discogenic changes. IMPRESSION: Increased diffuse ground-glass opacities and Scott B lines suggesting early pulmonary edema. Technically, atypical/viral pneumonia in the differential. If there is persistent clinical diagnostic uncertainty, continued surveillance with short interval chest radiographs after treatment is recommended. Dictated by: Kervin Medrano M.D. on 07/17/2020 at 18:05 Approved by: Kervin Medrano M.D. on 07/17/2020 at 18:07 CT scan - chest: Radiologist's Impression: [address] Scan ReportSigned Patient: Ava Lynn R#: [id number]: 1950cct:[id number]/Sex: 70 / FDate of Service: 07/17/20Lo: EDAccession Number: [id number] Procedure: CT angio chest PE protocol Ordering Provider: Jose López D.O. PROCEDURE: CT ANGIO CHEST PE PROTOCOL INDICATIONS: Chest pain, shortness of breath, tachycardia TECHNIQUE: After the administration of intravenous contrast, 2 mm thick sections acquired from the pulmonary apices to the posterior costophrenic angles. 3-dimensional maximum intensity projection (MIP) coronal and sagittal reformats were then acquired through the thorax. For radiation dose reduction, the following was used: automated exposure control, adjustment of mA and/or kV according to patient size. COMPARISON: [facility], XR CHEST 1V, 07/17/2020, 17:58. FINDINGS: Image quality: Excellent. Pulmonary arteries: Pulmonary arteries are normal in size, and demonstrate no intraluminal filling defects to suggest central pulmonary embolism. Lungs and pleura: No pneumothorax. Trace bilateral pleural effusions. No focal consolidation however diffuse ground-glass opacities in the lung bases with thickened appearance of the interlobular septal lines. Mediastinum: Heart size is mildly enlarged, without pericardial effusion. Coronary artery calcifications are present. Shotty hilar and mediastinal lymph nodes without definite pathologic enlargement by size criteria. Thoracic aorta is normal in caliber and enhancement. No suspicious bony lesions. Small hiatal hernia. Ribs and thoracic spine appear intact throughout. Thyroid is grossly unremarkable No axillary or supraclavicular adenopathy. Abdomen: Visualized upper abdominal solid organs appear normal in the early arterial phase of enhancement. IMPRESSION: No evidence of pulmonary embolism Scattered ground-glass opacities and smooth thickening of the interlobular septal lines in keeping with early pulmonary edema. Trace bilateral pleural effusions. Small hiatal hernia Dictated by: Kervin Medrano M.D. on 07/17/2020 at 19:55 ECG Data Attestation: I personally reviewed and interpreted this ECG as follows: Prior ECG tracings: not available for review Interpretation: Sinus tachycardia Ventricular rate 127 Frequent PVCs in a bigeminy pattern Normal QRS LVH Nonspecific ST T wave changes MDM Narrative Medical decision making narrative: Patient's chest x-ray is concerning for fluid overload, the CT scan shows no signs of pulmonary embolism but also is concerning for pulmonary edema. Does have an elevated BNP. Patient denies any prior history of heart failure or coronary artery disease. Troponins detectable but not positive. They are unchanged x2. Is tachycardic on her EKG however is in a bigeminy pattern. She was given Lasix here in the ER. Was somewhat hypertensive. Patient has not had cardiac workup testing or an echocardiogram per report. I discussed the case with KILEY Azul the [facility] provider. Will admit for continued testing testing. Discuss this with the patient. She expressed understanding and agreement. Discharge Plan Departure Patient Disposition: Admitted as Observation Clinical Impression: CHF (congestive heart failure) Admit Date/Time: 07/17/20 22:26 Admit Provider: Chloe Azul
[2020-07-17 20:30] VITALS: PULSE 119; RESP 22; O2SAT 91
[2020-07-17 21:04] VITALS: BP 153/100
[2020-07-17 21:16] LABS: Creatine Kinase 100 U/L (30-135)
[2020-07-17 21:30] VITALS: PULSE 119; RESP 22; O2SAT 91
[2020-07-17 21:30] LABS: Troponin I 0.023 ng/mL (0.01-0.034)
[2020-07-17] MEDS: FUROSEMIDE 100 MG/10 ML VIAL 60 MG IV (21:49)
--- NOTE | 2020-07-17 23:20 | DI.NM.S_ITS ---
PROCEDURE: NM ISAAC PERF SPECT REST & STR Rest and exercise myocardial perfusion SPECT with gated imaging and ejection fraction RADIOPHARMACEUTICAL: 13.4 mCi Tc-99m sestamibi IV at rest and 27.0 mCi Tc-99m sestamibi IV at peak exercise. A two day-protocol was performed. INDICATIONS: SOB, CP TECHNIQUE: Radiopharmaceutical was injected at peak stress test, and also at rest. SPECT images were obtained. SPECT myocardial perfusion images were displayed in short axis, horizontal long axis, and vertical long axis views. Gated images were reviewed using Clarient software. COMPARISON: None. CARDIAC STRESS: A standard Prashant treadmill exercise tolerance test was performed by the patient under the supervision of an attending staff. The patient exercised for 4 minutes and 3 seconds; functional aerobic impairment (ALBA) is +34%. Hemodynamic data: There is normal blood pressure and heart rate response to exercise stress. Patient achieved 129% of maximum predicted heart rate at peak exercise. Symptoms: Patient denied chest pain during exercise. Significant dyspnea with exercise. EKG: No diagnostic EKG changes of ischemia; frequent PVCs throughout the study. FINDINGS: Raw data: There is good myocardial labeling by radiotracer. No significant motion artifacts. Vnmi-hy-lcqlp ratio is 0.32 (normal is less than 0.38 for sestamibi tracer, and less than 0.50 for thallium tracer). Left ventricle function: Gated images demonstrate global hypokinesis. No transient ischemic dilation; TID is 1.01 (normal less than 1.3). The left ventricle resting end-diastolic volume is 185 mL. Left ventricle stress ejection fraction is 26%; normal values are above 45%. Myocardial perfusion: There is a fixed moderately intense defect in the apex, the inferior wall, and the inferolateral wall consistent with prior infarction with no significant ischemia. SSS 20. IMPRESSION: Abnormal treadmill nuclear stress test consistent with prior infarction and no ischemia. 1) There is a fixed moderately intense defect in the apex, the inferior wall, and the inferolateral wall consistent with prior infarction with no significant ischemia. SSS 20. 2) Mildly enlarged left ventricle with severely reduced systolic function (EF post stress 26%). 3) No diagnostic ECG evidence of ischemia. Frequent PVCs throughout the study. 4) No angina during the study. Significant dyspnea with exercise. 5) Reduced exercise tolerance (7.0 METs, ALBA +34%). Target heart rate achieved. Appropriate BP response to exercise. 6) No prior nuclear stress test available for comparison. Dictated by: Price Correia MD on 07/18/2020 at 17:14 Approved by: Price Correia MD on 07/18/2020 at 17:19
--- NOTE | 2020-07-17 23:21 | DI.ECHO.S_ITS ---
[facility] +---------+ : : [address] : : : : [id number] : : : : Phone: [phone] Echocardiogram Report + + :Name: ALEC BANG Study Date: 07/18/2020 Height: 63 in : :[facility] Weight: 167 lb : : Gender: Female BSA: 1.8 m2 : :: 1950 Age: 70 yrs BP: 144/87 mmHg: :Reason For Study: SOB, CHEST PAIN : :Ordering Physician: : :MIGEL REYES PHTHALIC ACID PURIFIER-BC Performed By: Norma Harrell : :Referring: MIGEL REYES : + + Interpretation Summary The left ventricle is mild-moderately dilated. The ejection fraction is estimated to be 15-20%. There is severe global hypokinesis of the left ventricle. There is no obvious LV thrombus. The right ventricle is normal in size and function. The left atrium is severely dilated. There is moderate mitral regurgitation. There is mild tricuspid regurgitation. The right ventricular systolic pressure is estimated to be at least 34 mmHg based on an estimated right atrial pressure of 3 mm Hg. Procedure: A two-dimensional transthoracic echocardiogram with color flow and Doppler was performed. The study quality was technically adequate. There is no prior echocardiogram noted for this patient. The heart rate ranged between 83-104 bpm during the study. The patient was in normal sinus rhythm during the exam. Left Ventricle: The estimated left ventricular end diastolic volume is 137 ml. The left ventricle is mild-moderately dilated. There is normal left ventricular wall thickness. There is no thrombus. The ejection fraction is estimated to be 15-20%. There is severe global hypokinesis of the left ventricle. Diastolic function could not be accurately assessed due to tachycardia. Right Ventricle: The right ventricle is normal in size and function. Atria: The left atrium is severely dilated. Right atrial size is normal. There is no Doppler evidence for an interatrial shunt. Mitral Valve: The mitral valve leaflets appear mildly thickened, but open well. There is mild mitral annular calcification. The mitral valve chordae are thickened and/or calcified. Tented mitral leaflets. There is moderate mitral regurgitation. Aortic Valve: The aortic valve is trileaflet. The aortic valve opens well. The aortic valve is not well visualized. There is no aortic valve stenosis. No aortic regurgitation is present. Tricuspid Valve: The tricuspid valve is not well visualized, but is grossly normal. The right ventricular systolic pressure is estimated to be at least 34 mmHg based on an estimated right atrial pressure of 3 mm Hg. There is mild tricuspid regurgitation. Pulmonic Valve: The pulmonic valve is not well seen, but is grossly normal. There is no pulmonic valvular regurgitation. Great Vessels: The aortic root is normal size. The dimensions of the ascending aorta are normal. The IVC is of normal diameter and collapses greater than 50% with a sniff. This suggests a low right atrial pressure of 3 mm Hg. Pericardium/ Pleura There is no pericardial effusion. There is an anterior echo-free space consistent with a fat pad. There is no pleural effusion. MMode/2D Measurements & Calculations LVIDd: 5.2 cm LVOT diam: 2.1 cm LVIDs: 4.9 cm Ao root diam: 3.1 cm FS: 5.3 % asc Aorta Diam: 2.9 cm EPSS: 2.4 cm Ao Arch Diam (Prox Trans): 2.6 cm IVSd: 0.90 cm LVPWd: 0.90 cm LV alvarado. diameter/BSA (cm/m^2): 2.9 LV sys. diameter/BSA (cm/m^2): 2.7 LA A2 area: 27.0 cm2 RA long axis: 4.9 cm LA A4 area: 20.9 cm2 RA area: 14.0 cm2 LA length (vol): 5.7 cm RA vol: 33.9 ml LA vol: 84.9 ml RA : 18.9 ml/m2 LA vol index: 47.4 ml/m2 IVC diam: 1.6 cm RVD1 (basal): 2.9 cm TAPSE: 1.8 cm Doppler Measurements & Calculations Ao V2 max: 111.5 cm/sec LVOT Max Giovanni: 69.3 cm/sec Ao V2 mean: 80.9 cm/sec LV V1 max P.9 mmHg Ao max P.0 mmHg LV V1 VTI: 12.8 cm Ao mean P.9 mmHg KAN(I,D): 2.1 cm2 Ao V2 VTI: 21.0 cm KAN(V,D): 2.1 cm2 sev ratio: 0.61 KAN indexed to BSA (cm^2/m^2): 1.2 MV E max giovanni: 112.8 cm/sec TR max giovanni: 276.2 cm/sec MV A max giovanni: 2.3 cm/sec TR max P.5 mmHg MV E/A: 49.2 PA V2 max: 72.3 cm/sec Lat Peak E' Giovanni: 8.1 cm/sec PA V2 mean: 51.7 cm/sec E/E' lat: 14.0 PA mean P.2 mmHg MV dec time: 0.09 sec PA pr(Accel): 32.8 mmHg MR ERO: 0.20 cm2 MR PISA: 3.0 cm2 SV(LVOT): 43.9 ml MR flow rate: 98.8 cm3/sec MR PISA radius: 0.69 cm Reading Physician:11:48 AM
[2020-07-17 23:34] VITALS: BP 138/80; PULSE 112; RESP 19; O2SAT 95
[2020-07-18] VITALS (22 sets, daily range): BP systolic 95–144; BP diastolic 60–87; PULSE 96–125; RESP 14–20; TEMP 36.1–37; O2SAT 93–96; BMI 29.2
--- NOTE | 2020-07-18 01:25 | RT ---
Discussed with KILEY Azul indication for ABG around 0115. ABG is not indicated for pt at this time because pt is on RA with SpO2 94%-95%, RR 16-18, and is not in respiratory distress. Recommending to D/C ABG, give diuretics, and start home regimen of Advair BID and Albuterol MDI PRN for plan of care.
[2020-07-18] MEDS: DOCUSATE 100 MG CAPSULE PO ×3 (02:10→21:30)
[2020-07-18] MEDS: ALPRAZolam 0.25 MG TABLET 0.125 MG PO ×2 (02:10→16:55)
[2020-07-18] MEDS: TRAZODONE 50 MG TABLET 300 MG PO ×2 (02:11→22:44)
[2020-07-18] MEDS: SENNOSIDES 8.6 MG TABLET 17.2 MG PO ×2 (02:11→21:08)
[2020-07-18] MEDS: CYCLOBENZAPRINE 10 MG TABLET PO ×2 (02:12→22:44)
--- NOTE | 2020-07-18 03:29 | PC.NURSE ---
pt was satting at mid 80's and the nurse reminded pt to take deep breaths and O2 went up to 95%, pt said she would like to hold off on O2 and try to keep taking deep breaths and then a few minutes later she asked for ordered O2, pt at 2liters of O2 and at 93-95%.
[2020-07-18 06:25] LABS: Add Manual Diff / Slide Review NO; Basophils Absolute Auto 100 /uL (0-100); Basophils Percent Auto 0.7 % (0-2); Eosinophils Absolute Auto 200 /uL (0-450); Hematocrit 38.9 % (36-46); Hemoglobin 12.7 g/dL (12.0-16.0); Lymphocytes Absolute Auto 1200 /uL (1100-4500); Lymphocytes Percent Auto 13.4 % (25-40); Mean Corpuscular HGB Conc 32.7 % (30-36); Mean Corpuscular Hemoglobin 30.1 PG (26-34); Mean Corpuscular Volume 92.1 fL (80-100); Monocytes Absolute Auto 700 /uL (0-900); Monocytes Percent Auto 7.5 % (3-14); Neutrophils Absolute Auto 7000 /uL (1500-7000); Neutrophils Percent Auto 76.4 % (50-75); Platelet Count 237 X10^3/uL (150-400); Red Blood Cell Count 4.22 X10^6/uL (4.0-5.2); Red Cell Distribution Width 14.3 % (11.6-14.8); White Blood Cell Count 9.2 X10^3/uL (4.5-11.0)
[2020-07-18 06:26] LABS: INR 1.2 (0.9-1.3); Prothrombin Time 13.7 SECONDS (10.1-12.7)
[2020-07-18 06:28] LABS: PTT Partial Thromboplastin Tim 33 SECONDS (26.4-36.2)
[2020-07-18 06:30] LABS: Alanine Aminotransferase 11 IU/L (<35); Albumin 3.8 g/dL (3.5-5.0); Albumin Globulin Ratio 1.4 (1.0-2.8); Alkaline Phosphatase 70 U/L (38-126); Aspartate Aminotransferase 24 IU/L (14-36); BUN Creatinine Ratio 16.7 (6-22); Bilirubin Total 0.7 mg/dL (0.2-1.3); Bilirubin Unconjugated 0.7 mg/dL (0.0-1.1); Blood Urea Nitrogen 11 mg/dL (7-17); Carbon Dioxide 31 mmol/L (22-32); Chloride 102 mmol/L (98-107); Cholesterol 186 mg/dL (140-199); Estimated Glomerular Filt Rate > 60.0 mL/min (>60); Globulin 2.8 g/dL (1.7-4.1); Glucose 111 mg/dL (80-110); HDL Cholesterol 60 mg/dL (40-60); HEMOLYSIS < 15 (0-50); LDL Cholesterol Calculated 111 mg/dL (<100); Magnesium 1.8 mg/dL (1.6-2.3); Potassium 3.2 mmol/L (3.4-5.1); Sodium 138 mmol/L (137-145); Total Protein 6.6 g/dL (6.3-8.2); Triglycerides 74 mg/dL (35-150)
--- NOTE | 2020-07-18 06:38 | PM.HP.1 ---
History of Present Illness History of Present Illness Date Patient Seen: 07/17/20 Time Patient Seen: 23:43 Chief complaint: SOB,Chest Pressure, Sleepless Narrative: Patient is a 70-year-old female Ava Lynn. Who presented to the emergency room for for evaluation of shortness of breath and chest pressure. She states that she has had shortness of breath with exertion over the past several weeks and specifically over the past week. States she cannot lie flat because she is gasping for air. States she has to stop with going up a flight of stairs. Has no lower extremity swelling. Patient reports a chest tightness and heaviness that was improved slightly in the emergency room as her is her shortness of breath. Has not done anything about her symptoms prior to arrival. She came into the emergency department today due to her family members. She does have a pulse oximeter at home and states that she occasionally has her oxygen saturations in the mid upper 80s. She also states that her heart rate varies from the 90s to 130s. 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 She has been using her 's nebulizer several times a day for the past couple weeks following a cold she contracted approximately 6 weeks ago. Then she developed a sinus infection following that and underwent 2 [place] treatment regimens of which she finished approximately 1 week ago. She feels as if her symptoms are like an acute asthma attack. Patient denies any asthma or COPD but notes only a mild reactive airway disease in which she reacts to allergens in the air occasionally. Patient denies fever nausea vomiting chills body aches. Patient's BNP was 14 80, troponin 0.023, chest x-ray showed increased diffuse ground-glass opacities and Scott B lines suggesting early pulmonary edema. Chest CT: Scattered ground-glass opacities and smooth thickening of the interlobular septal lines in keeping with early pulmonary edema Trace bilateral pleural effusions. EKG: Sinus tachycardia with a ventricular rate of 127 Frequent PVCs in bigeminy, normal QRS, LVH, nonspecific ST and T-wave changes. Patient History Medical History History of spinal fracture Migraine Surgical History History of History of facial fracture repair Hx of lumbosacral spine surgery Family & Social History Family History (Updated 07/18/20 @ 06:52 by Chloe Azul [facility]) Father Diabetes mellitus Stroke Mother Breast cancer Son Stroke Social History: household members , [place] with adult son. Safety & Behavioral: Feels Safe in Current Yes Environment Been Physically Hurt or No Threatened By a Person Suicidal Ideation Description None Tobacco & Substance use: Smoking Status Never smoker alcohol intake never Substance Use Type does not use Meds Home Medications and Allergies Home Medications Medication Instructions Recorded Confirmed Type albuterol sulfate [Ventolin HFA] 1 puff INH PRN PRN #0 03/28/16 07/17/20 History sennosides [senna] 17.2 mg PO HS #0 10/27/17 07/17/20 History alprazolam 0.125 mg PO QPM 07/17/20 07/17/20 History cyclobenzaprine 10 mg PO QPM 07/17/20 07/17/20 History docusate sodium [Colace] 200 mg PO DAILY 07/17/20 07/17/20 History trazodone 300 mg PO QPM 07/17/20 07/17/20 History Allergies Allergy/AdvReac Type Severity Reaction Status Date / Time No Known Drug Allergies Allergy Verified 04/03/18 17:34 Review of Systems Review of Systems ROS: Yes All systems reviewed with the patient and are negative except as otherwise documented Constitutional Constitutional: Reports system reviewed and no additional complaints, except as documented, Reports fatigue and Reports poor appetite Eyes Eyes: Reports system reviewed and no additional complaints, except as documented ENT Ears, Nose, Mouth, and Throat: Yes system reviewed and no additional complaints, except as documented Cardiovascular Cardiovascular: Reports system reviewed and no additional complaints, except as documented, Reports chest pain, Reports dyspnea and Reports dyspnea on exertion Respiratory Respiratory: Reports system reviewed and no additional complaints, except as documented, Reports dyspnea and Reports dyspnea on exertion Gastrointestinal Gastrointestinal: Reports system reviewed and no additional complaints, except as documented Genitourinary Genitourinary: Reports system reviewed and no additional complaints, except as documented Musculoskeletal Musculoskeletal: Reports system reviewed and no additional complaints, except as documented and Reports myalgias Integumentary/Breasts Skin/Breast: Reports system reviewed and no additional complaints, except as documented Neurologic Neurologic: Reports system reviewed and no additional complaints, except as documented Psychiatric Psychiatric: Reports depression Comments: Grief - spouse 07/2019 Endocrine Endocrine: Reports system reviewed and no additional complaints, except as documented and Reports fatigue Hematologic/Lymphatic Hematologic/Lymphatic: Reports system reviewed and no additional complaints, except as documented Allergic/Immunologic Allergic/Immunologic: Reports system reviewed and no additional complaints, except as documented Exam Vital Signs (past 8 hours): - 07/17/20 23:34 07/18/20 00:07 07/18/20 00:09 Temperature 98.4 F Pulse Rate 112 H 116 H Respiratory Rate 19 18 Blood Pressure 138/80 144/87 H Pulse Oximetry 95 94 94 07/18/20 01:45 07/18/20 02:20 07/18/20 05:48 Temperature 97.2 F L Pulse Rate 96 H Respiratory Rate 16 Blood Pressure 144/87 H 101/62 Pulse Oximetry 95 95 Oxygen Delivery Method Room Air Oxygen Flow Rate 2 Narrative Exam Narrative: General: Patient is a well-developed, female well-nourished in no distress at this time. HEENT: Normocephalic, atraumatic, extraocular muscles intact, oral pharynx is clear and mucous membranes are moist. Neck is supple and symmetric, trachea is midline, no adenopathy, no thyroid enlargement, nontender, no masses palpated. Negative for JVD Chest: Normal AP diameter and contour without kyphoscoliosis, no nasal flaring, retractions, or tachypneic labored Lungs: Auscultation of all lung figueroa equal throughout but decreased in the bases without adventitious sounds, wheezes, rhonchi, or rales. Cardio: S1 & S2 with regular rate and rhythm without murmur, rubs, or gallops, no carotid bruit, no cardiac pulsations present. Abdomen: Soft nontender, negative for organomegaly, or masses. Bowel sounds are present in all 4 quadrants without guarding or rebound, no CVA tenderness. Musculoskeletal: Muscle strength and tone are equal within normal limits, no deformity, Андрей crepitus, effusions, cyanosis, clubbing or edema present. Full range of motion intact radial and pedal pulses are normal. Skin: Warm dry and intact without rashes, ulcerations or petechiae. Neuro: Alert and orientated x3, strength is +5/5 in all extremities, sensation to touch intact, no gross deficits noted of cranial nerves. Psych: Patient has a well-kept appearance, appropriate affect, mental status attitude thought context and judgment are appropriate for age. Objective Labs Result Diagrams: 07/18/20 06:08 07/18/20 06:08 Labs: Laboratory Results - last 24 hr 07/17/20 07/17/20 07/17/20 17:58 17:58 17:58 WBC 10.3 RBC 4.34 Hgb 13.4 Hct 40.1 MCV 92.3 MCH 30.8 MCHC 33.3 RDW 14.3 Plt Count 254 Neut % (Auto) 76.6 H Lymph % (Auto) 13.5 L [place] % (Auto) 6.5 Eos % (Auto) 2.3 Baso % (Auto) 1.1 Neut # (Auto) 7800 H Lymph # (Auto) 1400 [place] # (Auto) 700 Eos # (Auto) 200 Baso # (Auto) 100 PT 12.5 INR 1.1 APTT 35 Sodium 140 Potassium 3.5 Chloride 103 Carbon Dioxide 30 BUN 11 Creatinine 0.58 Estimated GFR > 60.0 BUN/Creatinine Ratio 19.0 Glucose 103 Calcium 9.7 Magnesium Total Bilirubin 0.5 Conjugated Bilirubin Unconjugated Bilirubin AST 28 ALT 13 Alkaline Phosphatase 67 Total Creatine Kinase 107 CK-MB (CK-2) 1.16 CK-MB (CK-2) Rel Index 1.1 L Troponin I 0.025 NT-Pro-B Natriuret Pep Total Protein 7.4 Albumin 4.3 Globulin 3.1 Albumin/Globulin Ratio 1.4 Triglycerides Cholesterol LDL Cholesterol, Calc HDL Cholesterol Lipase 44 COVID-19 PCR 07/17/20 07/17/20 07/17/20 17:58 18:50 20:56 WBC RBC Hgb Hct MCV MCH MCHC RDW Plt Count Neut % (Auto) Lymph % (Auto) [place] % (Auto) Eos % (Auto) Baso % (Auto) Neut # (Auto) Lymph # (Auto) [place] # (Auto) Eos # (Auto) Baso # (Auto) PT INR APTT Sodium Potassium Chloride Carbon Dioxide BUN Creatinine Estimated GFR BUN/Creatinine Ratio Glucose Calcium Magnesium Total Bilirubin Conjugated Bilirubin Unconjugated Bilirubin AST ALT Alkaline Phosphatase Total Creatine Kinase 100 CK-MB (CK-2) TNP CK-MB (CK-2) Rel Index TNP Troponin I 0.023 NT-Pro-B Natriuret Pep 1480 H Total Protein Albumin Globulin Albumin/Globulin Ratio Triglycerides Cholesterol LDL Cholesterol, Calc HDL Cholesterol Lipase COVID-19 PCR Negative 07/18/20 07/18/20 07/18/20 06:08 06:08 06:08 WBC 9.2 RBC 4.22 Hgb 12.7 Hct 38.9 MCV 92.1 MCH 30.1 MCHC 32.7 RDW 14.3 Plt Count 237 Neut % (Auto) 76.4 H Lymph % (Auto) 13.4 L [place] % (Auto) 7.5 Eos % (Auto) 2.0 Baso % (Auto) 0.7 Neut # (Auto) 7000 Lymph # (Auto) 1200 [place] # (Auto) 700 Eos # (Auto) 200 Baso # (Auto) 100 PT 13.7 H INR 1.2 APTT 33 Sodium 138 Potassium 3.2 L Chloride 102 Carbon Dioxide 31 BUN 11 Creatinine 0.66 Estimated GFR > 60.0 BUN/Creatinine Ratio 16.7 Glucose 111 H Calcium 9.0 Magnesium 1.8 Total Bilirubin 0.7 Conjugated Bilirubin 0.0 Unconjugated Bilirubin 0.7 AST 24 ALT 11 Alkaline Phosphatase 70 Total Creatine Kinase CK-MB (CK-2) CK-MB (CK-2) Rel Index Troponin I NT-Pro-B Natriuret Pep Total Protein 6.6 Albumin 3.8 Globulin 2.8 Albumin/Globulin Ratio 1.4 Triglycerides 74 Cholesterol 186 LDL Cholesterol, Calc 111 H HDL Cholesterol 60 Lipase COVID-19 PCR Assessment & Plan Assessment & Plan narrative: This patient requires acute care inpatient hospital management for worsening chest pain, uncontrolled HTN, tachycardia, and shortness of breath shortness of breath. After failing outpatient management of her respiratory function by her PCP Dr. Szymanski. The patient is at much higher risk for medical and surgical complications because of her history of reactive airway disease. These factors increase risk for acute coronary syndrome and/or acute respiratory distress leading to outcomes of morbidity and mortality. The patient's uncontrolled hypertension and tachycardia will impact his or her oxygenation, which will likely contribute to cardiopulmonary instability. 1. Chest pain, acute, present on admission likely secondary to pulmonary edema demonstrated by new onset Tachycardia and Hypertension, acute, new onset, stable, present on admission -Possible acute new onset decompensated CHF, Asthma/COPD exacerbation Monitor & r/o DVT, PE, Afib -CXR: Increased diffuse ground-glass opacities and Scott B lines suggesting early pulmonary edema. Technically, atypical/viral pneumonia in the differential. If there is persistent clinical diagnostic uncertainty, continued surveillance with short interval chest radiographs after treatment is recommended. CT:No evidence of pulmonary embolism, Scattered ground-glass opacities and smooth thickening of the interlobular septal lines in keeping with early pulmonary edema Trace bilateral pleural effusions.Small hiatal hernia EKG: Sinus tachycardia with a ventricular rate of 127, frequent PVCs and bigeminy, normal QRS and LVH, nonspecific ST and T-wave changes. -BNP 1480, Trop 0.023, lipase negative -In ER pt recieved Lasix 60mg, Hydrocone 5/500, CBC, CMP, Lipase, Pro BNP, Pt/PTT, Trop, -Am labs ordered: ProBNP, Trop x3, Procalc, TSH, Lipids, Resp consult ABG, Stress test/Echo ordered for am, Repeat EKG, Fluid restriction less than 2 liters per day, Na 2gram restriction. -Ordered Lasix 20mg BID, stopped to monitor patient as she demonstrated no fluid over load and will wait for echo results. -Started Lisinopril 10 mg p.o. q.day -patient to be monitored on tele medicine, vital signs q.4 hours, intake and output monitored Q shift, weight measure daily, diet:heart healthy -Supplemental oxygen by mask to maintain SaO2 greater than 90% if needed, check peak flow expiratory flow q.day, albuterol nebulizer 2.5-5 mg Q 4hrs minutes -consults ordered physical therapy, occupational therapy, speech therapy, dietary, respiratory therapy. -prevention vaccine consider flu vaccine 2. Reactive airway disease, acute on chronic, present on admission-likely uncontrolled asthma -continue patient's Advair and albuterol inhaler -consider pulmonary function tests, and referral to foreign banknote teller trader 3. Grief situational to of spouse, depression, anxiety, acute, present on admission -patient denies suicidal ideation Continue patient's alprazolam, and trazodone 4. Chronic back pain secondary to spinal fracture and back surgery x2, chronic, present on admission, stable -continue patient's cyclobenzaprine Code status:Full Code Surrogate/plan of care:Michelle AU PCR:Negative VTE prophylaxis: SCDs and enoxaparin 40 mg
[2020-07-18 06:42] LABS: NT-proBNP (BNP-Adult 18+) 2190 pg/mL (<125); Troponin I 0.025 ng/mL (0.01-0.034)
[2020-07-18 07:15] LABS: Thyroid Stimulating Hormone 2.11 uIU/mL (0.47-4.68)
[2020-07-18] MEDS: FLUTICASONE/SALMETEROL 100/50 60 PUFF DISKUS INH ×2 (08:44→19:49)
[2020-07-18] MEDS: ALBUTEROL/IPRATROPIUM 3 ML AMPUL INH ×2 (08:44→19:52)
[2020-07-18 08:49] LABS: HCO3 ABG 29 mmol/L (22-26); PCO2 ABG 35.7 mmHg (35-45); PO2 ABG 92 mmHg (80-100); pH ABG 7.51 (7.35-7.45)
[2020-07-18 08:50] LABS: Oxygen Saturation ABG 98 % (95-100); TCO2 ABG 30 mmol/L (21-31)
[2020-07-18 08:58] LABS: Fractionated Inspired Oxygen 28
[2020-07-18] MEDS: POTASSIUM CHLORIDE 40 MEQ in SODIUM CHLORIDE 0.9% 500 ML 130 ML IV (09:30)
[2020-07-18] MEDS: ENOXAPARIN 40 MG/0.4 ML SYRINGE SUBCUT (09:30)
[2020-07-18] MEDS: MAGNESIUM CHLORIDE 64 MG TABLET PO (10:51)
--- NOTE | 2020-07-18 11:32 | OT.IP.EVAL ---
Past Medical History (Last Reviewed 07/18/20 @ 06:50 [facility] History of spinal fracture Migraine Surgical History (Last Reviewed 07/18/20 @ 06:50 by JANICE TaylorDARRNO) History of History of facial fracture repair Hx of lumbosacral spine surgery Occupational Therapy Inpatient Evaluation/Re-Eval M1 PT/OT-IP Prior Functional Status Start: 07/18/20 11:42 Freq: NEEDED Status: Active Protocol: Document 07/18/20 11:42 CGR (Rec: 07/18/20 12:06 CGR [id number]) Medical Review Prior Functional Status Medical History Reviewed Yes Communication Pt is an effective verbal communicator. Mobility and Gait Pt was IND in all mobility but has a hx of 5-10 falls in the last year. Activities of Daily Living and IADL's Pt was IND in all ADLs without AD. Social History Household Members family Living Arrangements House Number of Floors (Floors) Two Floors Number of Stairs To Enter/Railing? 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 Pt and son state 5-10 falls in the last year. M2 OT-IP Current Condition Start: 07/18/20 11:42 Freq: Status: Active Protocol: Document 07/18/20 11:42 CGR (Rec: 07/18/20 12:06 CGR [id number]) Occupational Therapy Current Condition Current Condition Evaluation Date 07/18/20 Treatment Diagnosis CHF vs Ssthma/COPE exacerbation Diagnosis Onset Date 07/17/20 M3 OT- IP Subjective and Pain Start: 07/18/20 11:42 Freq: Status: Active Protocol: Document 07/18/20 11:42 CGR (Rec: 07/18/20 12:06 CGR [id number]) OT- Subjective Occupational Therapy Visit Type Type Initial Evaluation Visit Start Time 11:08 Visit Stop Time 11:32 Total Visit Minutes 24 Notes Pt's son present throughtout OT Pain Assessment Pain When Pain Assessed At Rest Pain Present Pain Present Denied Pain M4 OT- IP ADL's Start: 07/18/20 11:42 Freq: Status: Active Protocol: Document 07/18/20 11:42 CGR (Rec: 07/18/20 12:06 CGR [id number]) OT [id number] Comments OT Self-Feeding Comments Not meal time OT ADL-Grooming General Evaluation Grooming Ability Independent Areas Needing Assistance Combing/Brushing Hair,Face Washing Comments OT Grooming Comments standing at sink OT ADL-Oral Care General Eval Oral Care Ability Independent Areas of Assistance Brushing Teeth Comments Oral Care Comments standing at sink OT ADL-Dressing General Eval Upper Body Dressing Ability Independent Lower Body Dressing Ability Independent Areas Needing Assistance Socks OT ADL-Toileting General Evaluation Toileting Ability Independent Comments OT Toileting Comments simulated seated on toielt OT ADL-Bathing Comments OT Bathing Comments not performed M5 OT- IP IADL's Start: 07/18/20 11:42 Freq: Status: Active Protocol: Document 07/18/20 11:42 CGR (Rec: 07/18/20 12:06 CGR [id number]) OT-Instrumental Activities of Daily Living Deficits IADL Deficits Identified Deficits Home Safety Awareness Awareness of Need for Assistance at Home Decreased Awareness Ability to Problem Solve Emergency Able to Problem Solve Situations Medication Management Medication Management No Deficits Identified Money Management Money Management Caregiver Provides Assistance Meal Preparation Meal Preparation Caregiver Provides Assist Director Of Food And Beverage Services Director Of Food And Beverage Services Caregiver Provides Assist Driving Driving Comments 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 M6 OT- IP Functional Cognition Start: 07/18/20 11:42 Freq: Status: Active Protocol: Document 07/18/20 11:42 CGR (Rec: 07/18/20 12:06 CGR [id number]) Cognitive Factors Limiting Selfcare Function Cognitive Ability Level of Alertness Alert Patient Orientation Name,Age,Birthday,Month,Date, Year,Day of Week,Place, Situation Attention Span Ability Capable of Focused Attention, Capable of Sustained Attention Ability to Follow Commands Able to Follow One Step Commands OT- Vision and Hearing OT- Hearing Assessment OT- Hearing Assessment Right Ear Impaired OT- Vision Assessment Visual Acuity Glasses All The Time Visual Attentiveness WFL Occular Pursuits WFL Visual Convergence WFL Vision Assessment Comments Pt wears trifocals M7 OT- IP Mobility and Balance Start: 07/18/20 11:42 Freq: Status: Active Protocol: Document 07/18/20 11:42 CGR (Rec: 07/18/20 12:06 CGR [id number]) OT- Bed Mobility Assessment Rolling Type of Rolling Roll to Left Level of Assistance Independent Supine to Sit Supine to Sit Assist Independent Sit to Supine Sit to Supine Assist Independent Scooting Scooting to Edge of Bed Independent OT-Transfer Assessment Sit to and From Stand Sit to and from Stand Standby Assistance Transfers Transfer Ability Standby Assistance Technique Transfer Destination Bed,Toilet Transfer Technique Stand Step Pivot Devices Transfer Assistive Devices Gait Belt,Front Wheeled Walker Comments Mobility Comments Began session with use of FWW, pt is SBA without FWW with mobility in the room. OT- Gait Assessment Gait Gait Assistance Required: Standby Assistance Assistive Devices Assistive Device Gait Belt OT- Balance Assessment Sitting Balance and Reactions Static Sitting Balance Ability Good Dynamic Sitting Balance Ability Fair M8 OT- IP Objective Assessments Start: 07/18/20 11:42 Freq: Status: Active Protocol: Document 07/18/20 11:42 CGR (Rec: 07/18/20 12:06 CGR [id number]) OT Gross Range of Motion Upper Extremity Range of Motion Assessment Within Functional Limits ROM Impairments noted L arm minimally tested as IV is painful in that arm. OT Strength Upper Extremity Strength Assessment Within Functional Limits Comments Strength Comments L arm not fully tested but grossly 4/5 OT- Coordination Assessment Upper Extremity Finger to Nose Test Within Functional Limits Finger Tapping Test Within Functional Limits OT-Muscle Tone Assessment Muscle Tone WNL Yes OT Sensation Assessment Edema Edema Absent M9 OT- IP Assessment and Plan Start: 07/18/20 11:42 Freq: Status: Active Protocol: Document 07/18/20 11:42 CGR (Rec: 07/18/20 12:06 CGR [id number]) OT Summary Assessment and Plan Potential Rehabilitation Potential Good Analytic Complexity at Evaluation Low Summary OT Impairments Balance Progress Towards Goals Safe For Discharge Assessment Summary Pt presents as a low complexity evaluation s/p admit for CHF vs Asthma/COPD exacerbation. Pt is at her baseline of IND to SBA for mobility but has a hx of 5-10 falls at home in the past year . Family indicates concern for pt's falls. No OT needs at this time but discussed case with P.T. for a high level balance assessment and recommendations for further balance therapy. Will d/c pt from OT services. Ok to d/c home from OT perspective. Frequency of Treatment Frequency Of Treatment Discharge Discharge Recommendations OT Discharge Recommendations Home with Assistance Transportation Needs at Discharge Private Vehicle
[2020-07-18 12:23] LABS: Hemoglobin A1C% w Est Avg Glu 5.7 % (4.0-6.0)
--- NOTE | 2020-07-18 13:04 | PT.IIE ---
Surgical History (Last Reviewed 07/18/20 @ 06:50 by Chloe Azul [facility]) History of History of facial fracture repair Hx of lumbosacral spine surgery Medical History (Last Reviewed 07/18/20 @ 06:50 by Chloe Azul [facility]) History of spinal fracture Migraine Physical Therapy Inpatient Evaluation/Re-Eval M1 PT/OT-IP Prior Functional Status Start: 07/18/20 11:42 Freq: NEEDED Status: Active Protocol: Document 07/18/20 12:40 [facility] Medical Review Prior Functional Status Medical History Reviewed Yes Communication Pt is an effective verbal communicator. Mobility and Gait Pt was IND in all mobility but has a hx of 5-10 falls in the last year. Activities of Daily Living and IADL's Pt was IND in all ADLs without AD. Social History Household Members family Living Arrangements House Number of Floors (Floors) Two Floors Number of Stairs To Enter/Railing? 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 Pt and son state 5-10 falls in the last year. M2 PT-IP Current Condition Start: 07/18/20 11:45 Freq: NEEDED Status: Active Protocol: Document 07/18/20 12:40 HH (Rec: 07/18/20 13:04 [email or web address]) Physical Therapy Current Condition Current Condition Evaluation Date 07/18/20 Treatment Diagnosis chest pain and SOB , generalized weakness, tachycardia, HTN Onset Date few weeks Weight Bearing Status Weight Bearing Status Full Weight Bearing M3 PT-IP Subjective Start: 07/18/20 11:45 Freq: NEEDED Status: Active Protocol: Document 07/18/20 12:40 HH (Rec: 07/18/20 13:04 [email or web address]) Subjective Physical Therapy Visit Type Type Initial Evaluation Visit Start Time 12:05 Visit Stop Time 12:32 Total Visit Minutes 27 Notes Son at bedside attended session Number of SOILS ANALYST Visits 0 Physical Therapy Visit Comments Patient Comments I dont want to do too much because i will have a stress test shortly. Therapy Pain Assessment Pain Present Pain Present Denied Pain M4 PT-IP Mobility and Gait Start: 07/18/20 11:45 Freq: NEEDED Status: Active Protocol: Document 07/18/20 12:40 HH (Rec: 07/18/20 13:04 [id number]) PT-Bed Mobility Assessment Supine to Sit Supine to Sit Independent Scooting Scooting to Edge of Bed Independent PT-Transfer Assessment Sit to and From Stand Sit to and from Stand Standby Assistance,Use of Upper Extremities Equipment Transfer Assistive Device None,Gait Belt Transfers Transfer Destination Bed Transfer Technique Stand Step Pivot Transfer Ability Level of Assist Standby Assistance,Use of Upper Extremities Comments Mobility Comments Pt was in bed upon PT arrival. BP at 115/69 HR 98 SpO2 92-96 % in supine. She agreeable to mobilize with PT. Completed KELLOGG test with pt and she scored 52/56 with difficulty standing on LLE and romberg balance test. Pt overall demonstrated L foot weakness and decreased sensation which contributed to her balance issue. Pt also tends to get unsteady with quick turns during walking and walking with head turns but able to recover without help. Pt completed KELLOGG balance test and some vestibular tests and she requested to return to bed for rest to prepare for her stress test. Pt back to bed at BP 130/89, HR 115. SpO2 94-96 %. No discomfort noted. Gait Assessment Gait Gait Assistance Required: Standby Assistance Distance (Feet) 60 Able to Maintain Weight Bearing Status Yes During Gait Assistive Devices Assistive Device Gait Belt Orthotic/Prosthetic Devices or Brace: No Gait Deviations General Gait Pattern Within Normal Limits Factors Limiting Gait Function Factors Limiting Gait Function Decreased Activity Tolerance, Decreased Strength,Limited Range of Motion,Poor Balance, Poor Safety Awareness Comments Gait Comments see mobility comments Stair Climbing Assessment Comments Stair Climbing Comments pt has ramp at home PT-Balance Assessment Sitting Balance and Reactions Static Sitting Balance Ability Normal Dynamic Sitting Balance Ability Normal Standing Balance and Reactions Static Standing Balance Ability Normal Dynamic Standing Balance Ability Normal Device Used none Balance Tests Kellogg Balance Test Score 52 Query Text:Score Comments Other Balance Tests/Deviations/Treatment Pt also tends to get unsteady : with quick turns during walking and walking with head turns but able to recover without help decreased balance during static standing with head turns VOR test R single leg stance = 8-10 s L single leg stance = 3-4s M5 PT-IP Objective Assessments Start: 07/18/20 11:45 Freq: NEEDED Status: Active Protocol: Document 07/18/20 12:40 HH (Rec: 07/18/20 13:04 [id number]) Orientation Orientation/Cognition Level of Alertness Alert Orientation Name,Age,Birthday,Month,Date, Year,Day of Week,Place, Situation Language Function Ability No Deficits Noted Safety Awareness Understands Safety Issues Memory Description No Deficits Noted Gross Range of Motion Upper Extremity ROM Assessment Within Functional Limits Lower Extremity ROM Assessment Left Impaired Impairments Ankle DF up to 3-5 degrees Strength Upper Extremity Strength Assessment Within Functional Limits Lower Extremity Strength Assessment Left Impaired Ankle 3+/5 Comments Strength Comments significant weakness noted for L ankle DF and PF. 3-/5 for L big toe flexion and extension Coordination Assessment Gross Coordination Gross Coordination WNL Sensation Assessment Sensation Gross Sensation Left LE Impaired Light Touch Impaired Proprioception (Position) Impaired Sensation Description Numbness Comments Sensation Comments decreased sensation to LT on dorsal aspect of the L foot, medial >lateral M6 PT-IP Treatment Start: 07/18/20 11:45 Freq: NEEDED Status: Active Protocol: Document 07/18/20 12:40 (Rec: 07/18/20 13:04 [email or web address]) Physical Therapy Treatment Education Education Provided Safety M7 PT-IP Assessment and Plan Start: 07/18/20 11:45 Freq: NEEDED Status: Active Protocol: Document 07/18/20 12:40 (Rec: 07/18/20 13:04 [email or web address]) PT Summary Assessment and Plan Potential Rehabilitation Potential Excellent Status of Condition at Evaluation Stable Summary Impairments ROM,Strength,Balance,Gait, Activity Tolerance Progress Towards Goals Safe For Discharge Assessment Summary This is a 70 yo female admitted to d/t SOB, chest pain and ongoing generalized weakness. PLOF= pt was IND without AD until a few weeks ago who started using FWW and WC for mobility. She had 5fall within the past year. Pt lives with home with adequate family support. Upon assessment, pt is close to baseline who was able to amb without AD SBA. Her KELLOGG balance = 52/56. However, pt has significant L foot weakness and impaired sensation which possibly impedes her balance, she also has possible vestibular impairments since her balance decreases with head turns ( horizontal and vertical) and quick turns. Her overall BP and O2 sat were stable but cont to be tachycardia from 90 -120s. In my opinion, recommended pt to participate outpatient PT and vestibular PT for foot strengthening and possible vestibular treatment which will improve her balance . Frequency of Treatment Frequency Of Treatment Discharge Recommendations To Nursing Amount of Assist Needed Standby Assistance Discharge Recommendations PT Discharge Recommendations Outpatient PT Transportation Needs at Discharge Private Vehicle
--- NOTE | 2020-07-18 13:44 | PM.PN.1 ---
Subjective Subjective Date Patient Seen: 07/18/20 Interval history: Ava Lynn is a 70-year-old female with a past medical history significant for insomnia and mild reactive airway disease who presented to the ED for progressive dyspnea on exertion with associated chest pressure over last several weeks. The patient is resting comfortably in bed. She reports her dyspnea on exertion slightly improved with diuresis. Her thought knee a has resolved. She continues to endorse mild chest pressure which has been intermittent and ongoing for the last week. She reports some associated dizziness previously. She denies headache, lightheadedness or dizziness, abdominal pain, nausea, vomiting, fever, chills, dysuria, diarrhea or constipation. She does endorse recent likely viral upper respiratory tract infection which led to bilateral ear infection. Patient was COVID 19 negative and plan to test patient for COVID antibodies. She also reports significant amount of stress throughout the year with her spouse of 50 years dying in the early spring and COVID-19. She is voiding without difficulty. She is up ambulating without assistance. Exam Vital Signs (past 8 hours): - 07/18/20 18:52 07/18/20 19:31 07/18/20 19:55 Temperature Pulse Rate 120 H 114 H Respiratory Rate 14 Blood Pressure 112/79 Pulse Oximetry 94 95 07/18/20 20:30 07/18/20 23:26 Temperature 97.5 F L 97.0 F L Pulse Rate 108 H 104 H Respiratory Rate 20 16 Blood Pressure 143/78 H 95/67 Pulse Oximetry 95 95 Oxygen Delivery Method Room Air Oxygen Flow Rate 0 Narrative Exam Narrative: General: No acute distress, well-developed, well-nourished, appropriately interactive HEENT: Normocephalic, atraumatic. External ears without defect. Pupils equal, round, and reactive to light and accommodation. Anicteric sclerae, moist conjunctivae, and no lid lag. Oropharynx free of erythema and cobble stoning with moist mucosa. Neck: Supple with full range of motion. No jugular venous distension. No bruits. No lymphadenopathy or thyromegaly. Cardiovascular: Regular rate and rhythm without murmurs, rubs, or gallops appreciated Pulmonary: Clear to auscultation bilaterally without crackles, wheezes, or rhonchi. Normal respiratory effort with no use of accessory muscles. Abdomen: Bowel tones present. Soft, nontender, nondistended. No hepatosplenomegaly or masses appreciated. Extremities: No clubbing, cyanosis, or edema. Skin: Normal temperature, turgor, and texture; no rash, ulcers, or subcutaneous nodules appreciated. Neurological: Cranial nerves grossly intact. Normal muscle strength, tone, and bulk. Reflexes, coordination, and sensory function within normal limits. No known gait impairment. Psychiatric: Normal mood and affect. Alert and oriented to person, place, and time. Objective Labs Result Diagrams: 07/19/20 05:41 07/19/20 05:41 Labs: Laboratory Results - last 24 hr 07/18/20 07/18/20 07/18/20 06:08 06:08 06:08 WBC 9.2 RBC 4.22 Hgb 12.7 Hct 38.9 MCV 92.1 MCH 30.1 MCHC 32.7 RDW 14.3 Plt Count 237 Neut % (Auto) 76.4 H Lymph % (Auto) 13.4 L [place] % (Auto) 7.5 Eos % (Auto) 2.0 Baso % (Auto) 0.7 Neut # (Auto) 7000 Lymph # (Auto) 1200 [place] # (Auto) 700 Eos # (Auto) 200 Baso # (Auto) 100 PT 13.7 H INR 1.2 APTT 33 ABG pH ABG pCO2 ABG pO2 ABG HCO3 ABG Total CO2 ABG O2 Saturation ABG Base Excess FiO2 Sodium 138 Potassium 3.2 L Chloride 102 Carbon Dioxide 31 BUN 11 Creatinine 0.66 Estimated GFR > 60.0 BUN/Creatinine Ratio 16.7 Glucose 111 H Hemoglobin A1c Calcium 9.0 Magnesium 1.8 Total Bilirubin 0.7 Conjugated Bilirubin 0.0 Unconjugated Bilirubin 0.7 AST 24 ALT 11 Alkaline Phosphatase 70 Troponin I 0.025 NT-Pro-B Natriuret Pep 2190 H Total Protein 6.6 Albumin 3.8 Globulin 2.8 Albumin/Globulin Ratio 1.4 Triglycerides 74 Cholesterol 186 LDL Cholesterol, Calc 111 H HDL Cholesterol 60 TSH 07/18/20 07/18/20 07/18/20 06:08 06:08 08:25 WBC RBC Hgb Hct MCV MCH MCHC RDW Plt Count Neut % (Auto) Lymph % (Auto) [place] % (Auto) Eos % (Auto) Baso % (Auto) Neut # (Auto) Lymph # (Auto) [place] # (Auto) Eos # (Auto) Baso # (Auto) PT INR APTT ABG pH 7.51 H ABG pCO2 35.7 ABG pO2 92 ABG HCO3 29 H ABG Total CO2 30 ABG O2 Saturation 98 ABG Base Excess 6.0 H FiO2 28 Sodium Potassium Chloride Carbon Dioxide BUN Creatinine Estimated GFR BUN/Creatinine Ratio Glucose Hemoglobin A1c 5.7 Calcium Magnesium Total Bilirubin Conjugated Bilirubin Unconjugated Bilirubin AST ALT Alkaline Phosphatase Troponin I NT-Pro-B Natriuret Pep Total Protein Albumin Globulin Albumin/Globulin Ratio Triglycerides Cholesterol LDL Cholesterol, Calc HDL Cholesterol TSH 2.11 07/18/20 15:01 WBC RBC Hgb Hct MCV MCH MCHC RDW Plt Count Neut % (Auto) Lymph % (Auto) [place] % (Auto) Eos % (Auto) Baso % (Auto) Neut # (Auto) Lymph # (Auto) [place] # (Auto) Eos # (Auto) Baso # (Auto) PT INR APTT ABG pH ABG pCO2 ABG pO2 ABG HCO3 ABG Total CO2 ABG O2 Saturation ABG Base Excess FiO2 Sodium Potassium Chloride Carbon Dioxide BUN Creatinine Estimated GFR BUN/Creatinine Ratio Glucose Hemoglobin A1c Calcium Magnesium Total Bilirubin Conjugated Bilirubin Unconjugated Bilirubin AST ALT Alkaline Phosphatase Troponin I 0.019 NT-Pro-B Natriuret Pep Total Protein Albumin Globulin Albumin/Globulin Ratio Triglycerides Cholesterol LDL Cholesterol, Calc HDL Cholesterol TSH [facility] Medical History History of spinal fracture Migraine Surgical History History of History of facial fracture repair Hx of lumbosacral spine surgery Family History (Updated 07/18/20 @ 06:52 by KATERIN Taylor) Father Diabetes mellitus Stroke Mother Breast cancer Son Stroke Social History household members: family Smoking Status: Never smoker alcohol intake: never Assessment & Plan Assessment & Plan narrative: Ava Lynn is a 70-year-old female with a past medical history significant for insomnia and mild reactive airway disease who presented to the ED for progressive dyspnea on exertion with associated chest pressure over last several weeks. 1. New acute systolic congestive heart failure, present on admission. Active. 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 -Chest x-ray demonstrated increased diffuse ground-glass opacities and Scott B lines suggesting early pulmonary edema. -CTA chest negative for PE with scattered ground-glass opacities and smooth thickening of the interlobular septal lines in keeping with early pulmonary edema and trace bilateral pleural effusions. -EKG demonstrated sinus tachycardia with a ventricular rate of 127, frequent PVCs and bigeminy, normal QRS and LVH, nonspecific ST and T-wave changes. Continue to monitor on telemetry closely. Patient remains in sinus rhythm/sinus tachycardia. -BNP 1480. -Troponin within normal limits at 0.023 x 3. -Echocardiogram demonstrated left ventricle is mild-moderately dilated with EF 15-20%, severe global hypokinesis of the left ventricle, no obvious LV thrombus, RV is normal in size and function, left atrium is severely dilated, moderate mitral regurgitation, mild tricuspid regurgitation, RVSP is estimated to be at least 34 mmHg based on an estimated right atrial pressure of 3 mmHg. -Received furosemide 60 mg x 1 in ED. Patient appears euvolemic and discontinued diuretics. -Patient with chest pressure intermittent over last 3 weeks. Continue nitroglycerin 0.4 mg every 5 minutes as needed for chest pain or pressure and morphine 2 mg every 5 min as needed for chest pain or pressure not relieved with nitroglycerin. -Continue low sodium heart healthy diet. NPO at midnight for NM stress test. -Risk stratified with Hemoglobin A1C which was 5.7% indicative of prediabetes and fasting lipid panel which demonstrated poor lipid control with: Total cholesterol 186, triglycerides 74, LDL 111 (goal < 100) and HDL 60. -Started and continue aspirin 81 mg daily, atorvastatin 40 mg daily at bedtime, metoprolol succinate 25 mg daily (for rate control and CHF), lisinopril 2.5 mg daily and spironolactone 12.5 mg daily as patient's BP is low normal. -Ordered NM stress test, pending. 2. Acute chest pain, present on admission. Resolved. -Patient has had intermittent chest pressure the last 3 weeks since previous viral illness 3-6 weeks ago. -EKG demonstrated sinus tachycardia with a ventricular rate of 127, frequent PVCs and bigeminy, normal QRS and LVH, nonspecific ST and T-wave changes. Continue to monitor on telemetry closely. Patient remains in sinus rhythm/sinus tachycardia. -Troponin within normal limits at 0.023 x 3. -Continue nitroglycerin 0.4 mg every 5 minutes as needed for chest pain or pressure and morphine 2 mg every 5 min as needed for chest pain or pressure not relieved with nitroglycerin. -Risk stratified with Hemoglobin A1C which was 5.7% indicative of prediabetes and fasting lipid panel which demonstrated poor lipid control with: Total cholesterol 186, triglycerides 74, LDL 111 (goal < 100) and HDL 60. -Started and continue aspirin 81 mg daily and atorvastatin 40 mg daily at bedtime. -Ordered NM stress test, pending. 3. Hyperlipidemia, chronic and newly diagnosed, present on admission. Stable. -Started and continue atorvastatin 40 mg daily at bedtime 4. Reactive airway disease, chronic, present on admission. Stable. -Continue home Advair and albuterol inhaler as needed for shortness of breath or wheezing. -Consider pulmonary function tests and referral to maritime pilot per PCP. 5. Grief situational to of spouse, depression, anxiety, acute, present on admission -patient denies suicidal ideation -Continue home alprazolam 0.125 mg daily at bedtime and trazodone 300 mg daily at bedtime. 6. Chronic back pain secondary to spinal fracture and back surgery x2, chronic, present on admission. Stable. -Continue home cyclobenzaprine 10 mg daily in the evening. Code status:Full code, surrogate decision maker is Michelle Clay VTE prophylaxis: Enoxaparin, SCDs Disposition: Patient likely to discharge in 1-2 days depending on results of nuclear medicine stress test and titration of heart failure medications as above.
[2020-07-18] MEDS: ASPIRIN 81 MG CHEW TAB 324 MG PO (13:52)
[2020-07-18] MEDS: METOPROLOL ER 25 MG TABLET PO ×2 (13:53→18:52)
[2020-07-18] MEDS: SPIRONOLACTONE 25 MG TABLET 12.5 MG PO (13:53)
--- NOTE | 2020-07-18 14:13 | CM.DANOTE ---
Patient is a 70 year old female who was admitted on 07/17/20 for SOB/ Sleepless. Pt has MCR and PRE DIM for insurance and her PCP is Dr. Maximo Vivas. EMR was reviewed. Per MD, pt admitted with possible CHF vs asthma/COPD exacerbation. Pt to have Echo and Stress test today to determine needs. PT/OT ordered and pt SBA and recommending safe d/c home with family assist and outpt PT for balance issues. 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 Pt agreeable with recommendation of outpt PT for balance issues to help reduce her risk of future falls. Pt is alert and oriented and preference is home with family when stable. Pt denies any hx of HH or SNF but states she is now and aware of HH and SNF as she helped her with end of life care and does not feel further services needed at d/c. Plan: SW to follow for likely pt d/c home with family assist and outpt PT pending Echo and stress test results. GUSTAVO Coombs Discharge Planning/Care Management Advanced directive, confirm from FAMILY Start: 07/18/20 00:44 Freq: Q24H Status: Active Protocol: Document 07/18/20 03:28 [facility] (Rec: 07/18/20 03:28 [facility] [id number]) Advance Directive, confirm on record Time 01:45 Person contacted patient Copy received No CM Discharge Assessment Start: 07/18/20 13:35 Freq: Status: Active Protocol: Document 07/18/20 13:35 [facility] (Rec: 07/18/20 14:13 [facility] [id number]) Discharge Planning Assessment Assigned [employer] GUSTAVO Sanches DPSHOLA/Assigned Designee Name oniel Guzman Contact Information [phone] Advance Directives? Yes Advance Directives on File No History Provided By Patient,Family Member,Medical Record Has Patient been admitted in last 30 No days? Prior Living Arrangements House Household Members family Type of transporation used prior to Relies on Others admit Comment From home with adult sons and grandchildren Independent with ADL's Yes Is patient alert and oriented? Yes Needs Assistance With Managing Medications Caregiver for Another Yes: helps homeschooling grandkids Patient/Family Preference OP PT Therapy Barriers to Discharge No Discharge Plan Home Community Services Physical Therapy Transportation Arrangement Son bedside and able to transport at d/c Referrals Initiated None needed Review Status In Process Please Provide Date Initial DC 07/18/20 Assessment Was Performed Next Review Type Continued Stay Review
[2020-07-18] MEDS: lisinopriL 5 MG TABLET 2.5 MG PO (14:18)
[2020-07-18 15:43] LABS: Troponin I 0.019 ng/mL (0.01-0.034)
--- NOTE | 2020-07-18 19:33 | PC.NURSE ---
pt is now able to wiggle his fingers, but L.arm is still flaccid. pt denies pain. pt currently sitting in the chair and comfortable. call light in reach.
[2020-07-18] MEDS: SODIUM CHLORIDE 0.9% FLUSH 10 ML IV (21:08)
[2020-07-18] MEDS: ATORVASTATIN 20 MG TABLET 40 MG PO (21:08)
--- NOTE | 2020-07-19 01:10 | PC.NURSE ---
Addendum entered by Myriam Roberts R.N. 07/19/20 06:13: QMM report generated. Original Note: DIRECTOR OF INCOME TAX note: Placed patient on bed alarm based on discharge planning note about patient's history with falls, explained to patient she was going to be on a bed alarm. Patient seemed to agree with this. Bed alarm was going off patient was upset what the hell is that? It just about gave me a heart attack. Explained to patient it was the bed alarms to alert us if she attempted to get out of bed without help because she has a history of falls. Patient said I've been falling my whole life and never needed an alarm. I'm a 70 year old woman. I can go to the bathroom by myself. I don't need to have help. This is bull shit. Patient continued talking about how she had done PT and how she had to walk with them with the gait belt and walker and being paraded around the hospital like this using profanity. Patient refused her bed alarm and continuous pulse oximetry. Told Myriam SHEPHERD.
[2020-07-19] MEDS: POTASSIUM CHLORIDE 40 MEQ in SODIUM CHLORIDE 0.9% 500 ML 130 ML IV (04:56)
[2020-07-19 05:00] VITALS: BP 97/54; PULSE 101; RESP 14; TEMP 36.3; O2SAT 94
[2020-07-19] MEDS: SODIUM CHLORIDE 0.9% FLUSH 10 ML IV ×2 (05:02→09:33)
--- NOTE | 2020-07-19 06:07 | PC.NURSE ---
Pt stable at start of shift, very tired. STach w/ PVCs. VSS, BP slightly lowered but WNL. Pt very anxious and distraught over prior and current events in life. Pt given IV K= in NS initially at 130/hr but lowered to 75/hr after pt complained of pain 5/10. Reduction in rate relieved pain somewhat, pt seems to tolerate well. Pt does not have bed alarm on but is aware of needing to call prior to getting out of bed.
[2020-07-19 06:16] LABS: Add Manual Diff / Slide Review NO; Basophils Absolute Auto 0 /uL (0-100); Basophils Percent Auto 0.4 % (0-2); Eosinophils Absolute Auto 300 /uL (0-450); Eosinophils Percent Auto 3.4 % (2-4); Hematocrit 39.1 % (36-46); Hemoglobin 12.7 g/dL (12.0-16.0); Lymphocytes Absolute Auto 2000 /uL (1100-4500); Lymphocytes Percent Auto 26.4 % (25-40); Mean Corpuscular HGB Conc 32.5 % (30-36); Mean Corpuscular Hemoglobin 30.3 PG (26-34); Mean Corpuscular Volume 93.3 fL (80-100); Monocytes Absolute Auto 800 /uL (0-900); Monocytes Percent Auto 10.6 % (3-14); Neutrophils Absolute Auto 4500 /uL (1500-7000); Neutrophils Percent Auto 59.2 % (50-75); Platelet Count 235 X10^3/uL (150-400); Red Blood Cell Count 4.19 X10^6/uL (4.0-5.2); Red Cell Distribution Width 14.1 % (11.6-14.8); White Blood Cell Count 7.6 X10^3/uL (4.5-11.0)
[2020-07-19 06:25] LABS: Blood Urea Nitrogen 12 mg/dL (7-17); Calcium 8.9 mg/dL (8.4-10.2); Carbon Dioxide 28 mmol/L (22-32); Chloride 107 mmol/L (98-107); Estimated Glomerular Filt Rate > 60.0 mL/min (>60); Glucose 118 mg/dL (80-110); HEMOLYSIS < 15 (0-50); Sodium 139 mmol/L (137-145)
[2020-07-19 06:33] LABS: NT-proBNP (BNP-Adult 18+) 1320 pg/mL (<125)
[2020-07-19] MEDS: FLUTICASONE/SALMETEROL 100/50 60 PUFF DISKUS INH (08:28)
[2020-07-19] MEDS: ALBUTEROL/IPRATROPIUM 3 ML AMPUL INH (08:30)
[2020-07-19 08:49] VITALS: PULSE 100; RESP 16; O2SAT 95
[2020-07-19 09:00] VITALS: BP 123/55; PULSE 106; RESP 17; TEMP 36.3; O2SAT 95
[2020-07-19] MEDS: METOPROLOL ER 50 MG TABLET PO (09:33)
[2020-07-19] MEDS: ASPIRIN EC 81 MG TABLET PO (09:33)
[2020-07-19] MEDS: SPIRONOLACTONE 25 MG TABLET 12.5 MG PO (09:33)
[2020-07-19] MEDS: lisinopriL 5 MG TABLET 2.5 MG PO (09:33)
[2020-07-19] MEDS: ENOXAPARIN 40 MG/0.4 ML SYRINGE SUBCUT (09:33)
[2020-07-19 09:45] VITALS: O2SAT 94
[2020-07-19 12:21] VITALS: BP 94/70; PULSE 98; RESP 16; TEMP 35.9; O2SAT 96
--- NOTE | 2020-07-19 15:38 | PM.DS.1 ---
History of Present Illness History of Present Illness Date Patient Seen: 07/17/20 Chief complaint: SOB,Chest Pressure, Sleepless Narrative: Writen by Chloe LIM: Patient is a 70-year-old female Ava Lynn. Who presented to the emergency room for for evaluation of shortness of breath and chest pressure. She states that she has had shortness of breath with exertion over the past several weeks and specifically over the past week. States she cannot lie flat because she is gasping for air. States she has to stop with going up a flight of stairs. Has no lower extremity swelling. Patient reports a chest tightness and heaviness that was improved slightly in the emergency room as her is her shortness of breath. Has not done anything about her symptoms prior to arrival. She came into the emergency department today due to her family members. She does have a pulse oximeter at home and states that she occasionally has her oxygen saturations in the mid upper 80s. She also states that her heart rate varies from the 90s to 130s. 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 She has been using her 's nebulizer several times a day for the past couple weeks following a cold she contracted approximately 6 weeks ago. Then she developed a sinus infection following that and underwent 2 Z-[place] treatment regimens of which she finished approximately 1 week ago. She feels as if her symptoms are like an acute asthma attack. Patient denies any asthma or COPD but notes only a mild reactive airway disease in which she reacts to allergens in the air occasionally. Patient denies fever nausea vomiting chills body aches. Patient's BNP was 14 80, troponin 0.023, chest x-ray showed increased diffuse ground-glass opacities and Scott B lines suggesting early pulmonary edema. Chest CT: Scattered ground-glass opacities and smooth thickening of the interlobular septal lines in keeping with early pulmonary edema Trace bilateral pleural effusions. EKG: Sinus tachycardia with a ventricular rate of 127 Frequent PVCs in bigeminy, normal QRS, LVH, nonspecific ST and T-wave changes. Discharge Providers Provider Date of admission: 07/17/20 22:26 Discharge Date: 07/19/20 Primary care physician: Maximo Vivas MD Consults: 07/17/20 23:13 Consult to Discharge Planning Routine Comment: Consult to Occupational Therapy Evaluate & Treat Comment: Physician Instructions: Evaluate and treat Consult to Physical Therapy Evaluate & Treat Comment: Physician Instructions: Evaluate and Treat 07/17/20 23:22 Consult to Respiratory Therapy Evaluate & Treat Comment: SOB Physician Instructions: Evaluate and treat Discharge provider: Silvia White DO Summary Hospital Course Discharge Diagnosis: 1. New acute systolic congestive heart failure with exacerbation, present on admission. Acute exacerbation resolved. 2. Acute chest pain, present on admission. Resolved. 3. Hyperlipidemia, chronic and newly diagnosed, present on admission. Stable. 4. Reactive airway disease, chronic, present on admission. Stable. 5. Grief situational to of spouse, depression, anxiety, chronic, present on admission. Stable. 6. Chronic back pain secondary to spinal fracture and back surgery x2, chronic, present on admission. Stable. Hospital Course: Ava Lynn is a 70-year-old female with a past medical history significant for insomnia and mild reactive airway disease who presented to the ED for progressive dyspnea on exertion with associated chest pressure over last several weeks. 1. New acute systolic congestive heart failure with exacerbation, present on admission. Acute exacerbation resolved. 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 -Chest x-ray demonstrated increased diffuse ground-glass opacities and Scott B lines suggesting early pulmonary edema. -CTA chest negative for PE with scattered ground-glass opacities and smooth thickening of the interlobular septal lines in keeping with early pulmonary edema and trace bilateral pleural effusions. -EKG demonstrated sinus tachycardia with a ventricular rate of 127, frequent PVCs and bigeminy, normal QRS and LVH, nonspecific ST and T-wave changes. Continued to monitor on telemetry closely. Patient remains in sinus rhythm/sinus tachycardia. -BNP 1480. -Troponin within normal limits at 0.023 x 3. -Echocardiogram demonstrated left ventricle is mild-moderately dilated with EF 15-20%, severe global hypokinesis of the left ventricle, no obvious LV thrombus, RV is normal in size and function, left atrium is severely dilated, moderate mitral regurgitation, mild tricuspid regurgitation, RVSP is estimated to be at least 34 mmHg based on an estimated right atrial pressure of 3 mmHg. -Received furosemide 60 mg x 1 in ED. Patient was euvolemic and discontinued furosemide. -Patient with chest pressure intermittent over last 3 weeks. Continue nitroglycerin 0.4 mg every 5 minutes as needed for chest pain or pressure and morphine 2 mg every 5 min as needed for chest pain or pressure not relieved with nitroglycerin. -Continued low sodium heart healthy/carbohydrate consistent diet. -Risk stratified with hemoglobin A1C which was 5.7% indicative of prediabetes and fasting lipid panel which demonstrated poor lipid control with: Total cholesterol 186, triglycerides 74, LDL 111 (goal < 100) and HDL 60. -Started and continued aspirin 81 mg daily, atorvastatin 40 mg daily at bedtime, metoprolol succinate increased from 25 mg to 50 mg daily for better heart rate control, lisinopril 2.5 mg daily and spironolactone 12.5 mg daily as patient's BP is low normal. -NM stress test was abnormal treadmill nuclear stress test consistent with prior infarction and no reversible ischemia. -Patient is to follow-up outpatient with Dr. Correia of cardiology in the next week. 2. Acute chest pain, present on admission. Resolved. -Patient has had intermittent chest pressure the last 3 weeks since previous viral illness 3-6 weeks ago. -EKG demonstrated sinus tachycardia with a ventricular rate of 127, frequent PVCs and bigeminy, normal QRS and LVH, nonspecific ST and T-wave changes. Continue to monitor on telemetry closely. Patient remains in sinus rhythm/sinus tachycardia. -Troponin within normal limits at 0.023 x 3. -Continue nitroglycerin 0.4 mg every 5 minutes as needed for chest pain or pressure and morphine 2 mg every 5 min as needed for chest pain or pressure not relieved with nitroglycerin. -Risk stratified with Hemoglobin A1C which was 5.7% indicative of prediabetes and fasting lipid panel which demonstrated poor lipid control with: Total cholesterol 186, triglycerides 74, LDL 111 (goal < 100) and HDL 60. -Started and continue aspirin 81 mg daily and atorvastatin 40 mg daily at bedtime. -NM stress test was abnormal treadmill nuclear stress test consistent with prior infarction and no reversible ischemia. 3. Hyperlipidemia, chronic and newly diagnosed, present on admission. Stable. -Started and continued atorvastatin 40 mg daily at bedtime. 4. Reactive airway disease, chronic, present on admission. Stable. -Continued home Advair and albuterol inhaler as needed for shortness of breath or wheezing. -Consider pulmonary function tests and referral to building materials sales attendant per PCP. 5. Grief situational to of spouse, depression, anxiety, chronic, present on admission. Stable. -Patient denies suicidal ideation. -Continued home alprazolam 0.125 mg daily at bedtime and trazodone 300 mg daily at bedtime. 6. Chronic back pain secondary to spinal fracture and back surgery x2, chronic, present on admission. Stable. -Continued home cyclobenzaprine 10 mg daily in the evening. Exam Vital Signs (past 8 hours): - 07/19/20 08:49 07/19/20 09:00 07/19/20 09:45 Temperature 97.3 F L Pulse Rate 100 H 106 H Respiratory Rate 16 17 Blood Pressure 123/55 L Pulse Oximetry 95 95 94 07/19/20 12:21 Temperature 96.7 F L Pulse Rate 98 H Respiratory Rate 16 Blood Pressure 94/70 Pulse Oximetry 96 Oxygen Delivery Method Room Air Oxygen Flow Rate 0 Narrative Exam Narrative: General: Older female sitting at bedside in no acute distress, appears chronically ill, well-developed, well-nourished, mildly anxious but otherwise appropriately interactive. HEENT: Normocephalic, atraumatic. External ears without defect. Pupils equal, round, and reactive to light. Anicteric sclerae, moist conjunctivae, and no lid lag. Oropharynx free of erythema and cobble stoning with moist mucosa. Neck: Supple with full range of motion. No jugular venous distension. No bruits. No lymphadenopathy or thyromegaly. Cardiovascular: Regular rate and rhythm without murmurs, rubs, or gallops appreciated. Pulmonary: Clear to auscultation bilaterally without crackles, wheezes, or rhonchi. Normal respiratory effort with no use of accessory muscles. Abdomen: Soft, bowel tones present.nontender, nondistended. No hepatosplenomegaly or masses appreciated. Extremities: No clubbing, cyanosis, or edema. Skin: Normal temperature, turgor, and texture; no rash, ulcers, or subcutaneous nodules appreciated. Neurological: Cranial nerves grossly intact. Psychiatric: Mildly anxious mood and affect. Alert and oriented to person, place, and time. Objective Labs Result Diagrams: 07/19/20 05:41 07/19/20 05:41 Labs: Laboratory Results - last 24 hr 07/18/20 07/19/20 07/19/20 15:01 05:41 05:41 WBC 7.6 RBC 4.19 Hgb 12.7 Hct 39.1 MCV 93.3 MCH 30.3 MCHC 32.5 RDW 14.1 Plt Count 235 Neut % (Auto) 59.2 Lymph % (Auto) 26.4 Davison % (Auto) 10.6 Eos % (Auto) 3.4 Baso % (Auto) 0.4 Neut # (Auto) 4500 Lymph # (Auto) 2000 Davison # (Auto) 800 Eos # (Auto) 300 Baso # (Auto) 0 Sodium 139 Potassium 4.0 Chloride 107 Carbon Dioxide 28 BUN 12 Creatinine 0.60 Estimated GFR > 60.0 BUN/Creatinine Ratio 20.0 Glucose 118 H Calcium 8.9 Magnesium 2.0 Troponin I 0.019 NT-Pro-B Natriuret Pep 07/19/20 05:41 WBC RBC Hgb Hct MCV MCH MCHC RDW Plt Count Neut % (Auto) Lymph % (Auto) Davison % (Auto) Eos % (Auto) Baso % (Auto) Neut # (Auto) Lymph # (Auto) Davison # (Auto) Eos # (Auto) Baso # (Auto) Sodium Potassium Chloride Carbon Dioxide BUN Creatinine Estimated GFR BUN/Creatinine Ratio Glucose Calcium Magnesium Troponin I NT-Pro-B Natriuret Pep 1320 H [facility] Medical History History of spinal fracture Migraine Surgical History History of History of facial fracture repair Hx of lumbosacral spine surgery Family History (Updated 07/18/20 @ 06:52 by KATERIN Taylor) Father Diabetes mellitus Stroke Mother Breast cancer Son Stroke Social History household members: family Smoking Status: Never smoker alcohol intake: never Discharge Plan Discharge Plan Patient Disposition: Home Provider Discharge Comment: You are being discharged home. You have systolic congestive heart failure with EF 15-20% (normal EF 55-60 %). Your heart failure is likely multifactorial and secondary to arrhythmia (fast heart rate), recent viral infection and possibly heart disease (silent heart attack). You have been prescribed aspirin 81 mg daily and atorvastatin 40 mg daily at bedtime to prevent heart attack and stroke. You have also been prescribed metoprolol succinate 50 mg daily to help control heart rate and strengthen your heart muscle, lisinopril 2.5 mg daily and spironolactone 12.5 mg daily. Our hopes are that with these medications you will regain some of your heart function/strength over the next 3-6 months. Please consume a diet low in salt (less than 2 g or 2000 mg daily) and 1.5 L fluid a day (includes all fluid). Please weigh yourself daily and take this to your doctor's appointment. Please follow-up with your primary care provider, Dr. Vivas, at your scheduled appointment on 07/23/2020. Recommend referral placed by PCP to Cardiology and hospital follow-up with the flight engineer manager Dr. Correia next week which you have been given his office number to schedule an appointment. You have also been tested for COVID antibodies which is a send out test and will be back in the next week and may be followed up with by your PCP and flight engineer manager. Discharge orders & Medications Prescriptions: New metoprolol succinate 50 mg Tablet Extended Release 24 Hr 50 mg PO DAILY Qty: 30 RF: 0 aspirin 81 mg Tablet,Delayed Release (Dr/Ec) 81 mg PO DAILY Qty: 30 RF: 0 spironolactone 25 mg Tablet 12.5 mg PO DAILY Qty: 15 RF: 0 lisinopril 5 mg Tablet 2.5 mg PO DAILY Qty: 15 RF: 0 atorvastatin [Lipitor] 20 mg Tablet 40 mg PO BEDTIME Qty: 30 RF: 0 levalbuterol tartrate 45 mcg/actuation HFA aerosol inhaler 2 inh inhalation Q6H PRN (Reason: shortness of breath or wheezing) Qty: 15 RF: 0 Continued albuterol sulfate [Ventolin HFA] 90 MCG/PUFF HFA aerosol inhaler 1 puff INH PRN PRN (Reason: Shortness Of Breath) Qty: 0 RF: 0 sennosides [senna] 8.6 MG tablet 17.2 mg PO HS Qty: 0 RF: 0 cyclobenzaprine 10 mg tablet 10 mg PO QPM RF: 0 alprazolam 0.25 mg tablet 0.125 mg PO QPM RF: 0 trazodone 150 mg tablet 300 mg PO QPM RF: 0 docusate sodium [Colace] 100 mg Capsule 200 mg PO DAILY RF: 0 Follow up/Referrals: Maximo Vivas MD [Primary Care Provider] - As previously scheduled Price Correia MD [Physician] - 3-5 Days Diet/Activity/Treatments Diet: Low-fat, Low-sodium and Low-cholesterol Diet comment: low sodium < 2g or 2000 mg, 1.5 L/day fluid (all fluids) Activity: Activity as tolerated Visit Report/Discharge Packet Instructions: The Mediterranean Diet and Good Health, DI for Heart Failure, DI for Cardiomyopathy, Fluid Restricted Diet, Low-Sodium Diet Discharge Data Primary Care Provider: Maximo Vivas
--- NOTE | 2020-07-19 17:45 | PC.NURSE ---
Evening Shift/Discharge Note- Patient discharged home. Discharge instructions and educations reviewed w/ patient and signed. IV line removed and tele removed. Patient dressed self and packed up all personal items. Patient left via wheelchair to private car with daughter at side wi9th all personal items at 1740
[2020-07-21 14:19] LABS: SARS-CoV19- IgM Negative (Negative)
[2020-07-31 12:57] LABS: SARS CoV19 IgG Negative
== END 2020-07-19 17:45 | disposition home or self-care (01) | DRG 291 ==
LOC: ED 21:52 → AC 07-18 09:13
PROVIDERS: Emergency Medicine; Internal Medicine; Admitting Provider Nurse Practitioner Family; Emergency Provider Emergency Medicine; PCP Family Medicine; Visit Provider Nurse Practitioner Family
DX: I11.0 Hypertensive heart disease with heart failure (principal); I50.21 Acute systolic (congestive) heart failure; R00.0 Tachycardia, unspecified; F43.21 Adjustment disorder with depressed mood; G89.29 Other chronic pain; E78.5 Hyperlipidemia, unspecified; J45.909 Unspecified asthma, uncomplicated; F32.9 Major depressive disorder, single episode, unspecified; F41.9 Anxiety disorder, unspecified
CPT/HCPCS: 36415; 36600; 71045; 71275; 78452; 80048; 80053; 80061; 80076; 82550; 82553; 82805; 83036; 83690; 83735; 83880; 84443; 84484; 85025; 85610; 85730; 86769; 87635; 93005; 93017; 93306; 94640; 94760; 94762; 96374; 97161; 97165; 97535; 99284; A9270; A9502; J1650; J1940; J3480; Q9967

== ENCOUNTER → 2020-07-27 15:31 | Outpatient (CLI) | payer MEDICARE, OTHER, SELFPAY ==
[2020-07-18 00:34] VITALS: BMI 29.2
--- NOTE | 2020-07-27 | DI.RAD.S_ITS ---
PROCEDURE: XR CHEST 2V INDICATIONS: Heart Failure With Reduced Injection Fraction TECHNIQUE: 2 views of the chest were acquired. COMPARISON: [facility], , XR CHEST 1V, 07/17/2020, 17:58. FINDINGS: Surgical changes and devices: None. Lungs and pleura: There is mild prominence of the central pulmonary vascularity. No acute airspace opacity is seen. No pleural effusions or pneumothorax. Mediastinum: Mediastinal contours are normal. Heart size is normal. Atherosclerotic calcifications are seen in the aorta. Bones and chest wall: No suspicious bony abnormalities. Soft tissues appear unremarkable. IMPRESSION: Stable mild prominence of the central pulmonary vascularity. No acute airspace consolidation is seen. The heart is not significantly enlarged. Dictated by: Brad Flaherty M.D. on 07/27/2020 at 16:00 Approved by: Brad Flaherty M.D. on 07/27/2020 at 16:02
[2020-07-27 16:36] LABS: BUN Creatinine Ratio 21.6 (6-22); Blood Urea Nitrogen 16 mg/dL (7-17); Calcium 9.6 mg/dL (8.4-10.2); Carbon Dioxide 29 mmol/L (22-32); Chloride 103 mmol/L (98-107); Estimated Glomerular Filt Rate > 60.0 mL/min (>60); Glucose 101 mg/dL (80-110); HEMOLYSIS < 15 (0-50); Potassium 4.5 mmol/L (3.4-5.1); Sodium 136 mmol/L (137-145)
== END ==
PROVIDERS: PCP Family Medicine; Referring Provider Internal Medicine Cardiovascular Disease; Visit Provider Internal Medicine Cardiovascular Disease
DX: I50.20 Unspecified systolic (congestive) heart failure (principal)
CPT/HCPCS: 36415; 71046; 80048

== ENCOUNTER → 2020-09-04 12:03 | Outpatient (CLI) | payer MEDICARE, OTHER, SELFPAY ==
[2020-07-18 00:34] VITALS: BMI 29.2
[2020-09-04 13:00] LABS: Add Manual Diff / Slide Review NO; Basophils Absolute Auto 0 /uL (0-100); Basophils Percent Auto 0.8 % (0-2); Eosinophils Absolute Auto 200 /uL (0-450); Eosinophils Percent Auto 2.7 % (2-4); Hematocrit 39.3 % (36-46); Hemoglobin 13.1 g/dL (12.0-16.0); Lymphocytes Absolute Auto 1200 /uL (1100-4500); Lymphocytes Percent Auto 20.4 % (25-40); Mean Corpuscular HGB Conc 33.3 % (30-36); Mean Corpuscular Hemoglobin 30.1 PG (26-34); Mean Corpuscular Volume 90.6 fL (80-100); Monocytes Absolute Auto 400 /uL (0-900); Monocytes Percent Auto 6.4 % (3-14); Neutrophils Absolute Auto 4200 /uL (1500-7000); Neutrophils Percent Auto 69.7 % (50-75); Platelet Count 220 X10^3/uL (150-400); Red Blood Cell Count 4.34 X10^6/uL (4.0-5.2); Red Cell Distribution Width 13.2 % (11.6-14.8); White Blood Cell Count 6.1 X10^3/uL (4.5-11.0)
[2020-09-04 13:30] LABS: BUN Creatinine Ratio 14.1 (6-22); Blood Urea Nitrogen 9 mg/dL (7-17); Carbon Dioxide 34 mmol/L (22-32); Chloride 101 mmol/L (98-107); Cholesterol 102 mg/dL (140-199); Estimated Glomerular Filt Rate > 60.0 mL/min (>60); Glucose 129 mg/dL (80-110); HDL Cholesterol 39 mg/dL (40-60); HEMOLYSIS < 15 (0-50); LDL Cholesterol Calculated 43 mg/dL (<100); Potassium 3.5 mmol/L (3.4-5.1); Sodium 138 mmol/L (137-145); Triglycerides 98 mg/dL (35-150)
== END ==
PROVIDERS: PCP Family Medicine; Referring Provider Internal Medicine Cardiovascular Disease; Visit Provider Internal Medicine Cardiovascular Disease
DX: I50.20 Unspecified systolic (congestive) heart failure (principal)
CPT/HCPCS: 36415; 80048; 80061; 85025

== ENCOUNTER → 2020-09-15 12:57 | Outpatient (CLI) | payer MEDICARE, OTHER, SELFPAY ==
[2020-07-18 00:34] VITALS: BMI 29.2
[2020-09-15 15:28] LABS: COVID19 -Nasal RAPID Negative (Negative)
== END ==
PROVIDERS: PCP Family Medicine; Visit Provider Student in an Organized Health Care Education/Training Program
DX: Z01.812 Encounter for preprocedural laboratory examination (principal); Z20.822 Contact with and (suspected) exposure to COVID-19
CPT/HCPCS: 87635; C9803

== ENCOUNTER 2020-09-18 07:26 | Day surgery (SDC) | payer MEDICARE, OTHER, SELFPAY ==
[2020-07-18 00:34] VITALS: BMI 29.2
[2020-09-18] MEDS: PROPARACAINE 0.5% OPHTH SOL 2 DROPS EYE-OP (07:48)
[2020-09-18] MEDS: CATARACT EYE COMPOUND (10 DROPS/SYRINGE) 3 DROPS EYE-OP (07:48)
[2020-09-18 07:50] VITALS: BP 116/69; PULSE 52; RESP 16; TEMP 36.5; O2SAT 97; BMI 62.2
[2020-09-18 08:00] VITALS: BP 116/69; PULSE 52; RESP 16; TEMP 36.5; O2SAT 97; BMI 62.2
--- NOTE | 2020-09-18 09:02 | P.OP_ITS ---
Operative Date/Time/Diagnoses Pre-op diagnosis: Nuclear Cataract Left eye Post-op diagnosis: same Procedure & Clinicians Same procedure as scheduled: Yes Surgeon: Justin Cintron Anesthesia Type: MAC +/- and Sedation Operative Notes Procedure in detail: Patient brought to the operating suite. Tetracaine drops placed in the left eye. Patient was prepped and draped in sterile manner. Wire lid speculum was placed in the eye. Betadine drops were placed on the eye. This was irrigated. Lidocaine jelly was placed on the eye. A paracentesis port was created with a side-port blade. 0.1 mL 1% preservative free lidocaine was injected into the anterior chamber. The anterior chamber was deepened with viscoelastic. 2.6 mm keratome was used to create a temporal clear corneal incision. Cystotome and Utrata forceps were used to create continuous tear capsulorrhexis. Balanced salt solution was used to hydro dissect the nucleus. The phacoemulsification handpiece was inserted and the nucleus was removed using the stop and chop technique. The irrigation aspiration handpiece was inserted and the remaining cortex was removed. Anterior chamber was deepened with viscoe lastic. An Jacinto ZCB00 intraocular lens with a power of 27.0 was injected into the capsular bag. Irrigation aspiration handpiece was inserted and the remaining viscoelastic was removed. Incision was hydrated with balanced salt solution and found to be leak free with pressure with Weck-Kait sponges. 0.1 mL Vigamox injected anterior chamber. 0.3 mL Kenalog 10 mg was injected subconjunctivally. Lid speculum was removed. The patient left the operating room in excellent condition. Complications: none Post-operative Condition: stable Disposition: same day surgery
--- NOTE | 2020-09-18 09:02 | PM.PREOP ---
Pre-operative Note Interval Note History & Physical reviewed/Exam performed by Physician: Yes Changes to H&P: No
[2020-09-18] MEDS: LIDOCAINE JELLY 2% 5 ML 1 APPLIC TOP (09:23)
[2020-09-18] MEDS: CHONDROIDTIN/SOD HYALURONATE 1.05 ML SYRINGE INTRAOCULA (09:23)
[2020-09-18] MEDS: MOXIFLOXACIN INJ 5 MG/ML VIAL EYE-OP (09:23)
[2020-09-18] MEDS: TRIAMCINOLONE 50 MG/5 ML VIAL INJ (09:24)
[2020-09-18] MEDS: TETRACAINE 0.5% OPHTH DROPS 4 ML 2 DROPS EYE-OP (09:24)
[2020-09-18] MEDS: PHENYLEPHRINE/LIDOCAINE VIAL (OR) 0.2 ML EYE-OP (09:24)
[2020-09-18] MEDS: BALANCED SALT IRRIG SOLN NO.2 500 ML, EPINEPHrine 1 MG IRR (09:24)
[2020-09-18 09:45] VITALS: BP 111/59; PULSE 48; RESP 16; TEMP 36.6; O2SAT 96
== END 2020-09-18 09:50 | disposition home or self-care (01) ==
PROVIDERS: PCP Family Medicine; Referring Provider Ophthalmology; Visit Provider Ophthalmology
PROC: (CPT 66984; principal; 2020-09-18 09:15)
DX: H25.12 Age-related nuclear cataract, left eye (principal); F41.9 Anxiety disorder, unspecified; G43.909 Migraine, unspecified, not intractable, without status migrainosus
CPT/HCPCS: 66984; J0171; J2250; J3301

== ENCOUNTER → 2020-10-01 10:59 | Outpatient (CLI) | payer MEDICARE, OTHER, SELFPAY ==
[2020-07-18 00:34] VITALS: BMI 29.2
[2020-10-01 13:19] LABS: COVID19 -Nasal RAPID Negative (Negative)
== END ==
PROVIDERS: PCP Family Medicine; Visit Provider Physician Assistant
DX: Z20.822 Contact with and (suspected) exposure to COVID-19 (principal)
CPT/HCPCS: 87635; C9803

== ENCOUNTER 2020-10-02 07:14 | Day surgery (SDC) | payer MEDICARE, OTHER, SELFPAY ==
[2020-07-18 00:34] VITALS: BMI 29.2
[2020-10-02] MEDS: PROPARACAINE 0.5% OPHTH SOL 2 DROPS EYE-OP (07:43)
[2020-10-02] MEDS: CATARACT EYE COMPOUND (10 DROPS/SYRINGE) 3 DROPS EYE-OP (07:51)
[2020-10-02 07:53] VITALS: BP 105/64; PULSE 47; RESP 18; TEMP 36.6; O2SAT 96; BMI 28.0
--- NOTE | 2020-10-02 08:56 | PM.PREOP ---
Pre-operative Note Interval Note History & Physical reviewed/Exam performed by Physician: Yes Changes to H&P: No
--- NOTE | 2020-10-02 08:56 | PM.OP.1 ---
Operative Date/Time/Diagnoses Pre-op diagnosis: Nuclear cataract right eye Procedure & Clinicians Procedure: Cataract Surgery Same procedure as scheduled: Yes Surgeon: Justin Cintron Anesthesia Type: MAC +/- and Sedation Operative Notes Procedure in detail: Patient brought to the operating suite. Tetracaine drops placed in the right eye. Patient was prepped and draped in sterile manner. Wire lid speculum was placed in the eye. Betadine drops were placed on the eye. This was irrigated. Lidocaine jelly was placed on the eye. A paracentesis port was created with a side-port blade. 0.1 mL 1% preservative free lidocaine was injected into the anterior chamber. The anterior chamber was deepened with viscoelastic. 2.6 mm keratome was used to create a temporal clear corneal incision. Cystotome and Utrata forceps were used to create continuous tear capsulorrhexis. Balanced salt solution was used to hydro dissect the nucleus. The phacoemulsification handpiece was inserted and the nucleus was removed using the stop and chop technique. The irrigation aspiration handpiece was inserted and the remaining cortex was removed. Anterior chamber was deepened with viscoelastic. An Jacinto ZCB00 intraocular lens with a power of 27.5 was injected into the capsular bag. Irrigation aspiration handpiece was inserted and the remaining viscoelastic was removed. Incision was hydrated with balanced salt solution and found to be leak free with pressure with Weck-Kait sponges. 0.1 mL Vigamox injected anterior chamber. 0.3 mL Kenalog 10 mg was injected subconjunctivally. Lid speculum was removed. The patient left the operating room in excellent condition. Complications: none Post-operative Condition: stable Disposition: same day surgery
[2020-10-02] MEDS: PHENYLEPHRINE/LIDOCAINE VIAL (OR) 0.2 ML EYE-OP (09:14)
[2020-10-02] MEDS: MOXIFLOXACIN INJ 5 MG/ML VIAL EYE-OP (09:14)
[2020-10-02] MEDS: LIDOCAINE JELLY 2% 5 ML 1 APPLIC TOP (09:14)
[2020-10-02] MEDS: TETRACAINE 0.5% OPHTH DROPS 4 ML 2 DROPS EYE-OP (09:14)
[2020-10-02] MEDS: CHONDROIDTIN/SOD HYALURONATE 1.05 ML SYRINGE INTRAOCULA (09:14)
[2020-10-02] MEDS: BALANCED SALT IRRIG SOLN NO.2 500 ML, EPINEPHrine 1 MG IRR (09:15)
[2020-10-02] MEDS: TRIAMCINOLONE 50 MG/5 ML VIAL INJ (09:15)
[2020-10-02 09:25] VITALS: BP 95/52; PULSE 51; RESP 11; TEMP 36.2; O2SAT 98
[2020-10-02 09:45] VITALS: BP 95/59; PULSE 49; RESP 14; TEMP 36.2; O2SAT 95
== END 2020-10-02 09:48 | disposition home or self-care (01) ==
PROVIDERS: PCP Family Medicine; Referring Provider Ophthalmology; Visit Provider Ophthalmology
PROC: (CPT 66984; principal; 2020-10-02 09:15)
DX: H25.11 Age-related nuclear cataract, right eye (principal); F41.9 Anxiety disorder, unspecified; G43.909 Migraine, unspecified, not intractable, without status migrainosus
CPT/HCPCS: 66984; J0171; J2250; J3010; J3301

== ENCOUNTER 2020-10-28 16:10 | Observation (INO) | payer MEDICARE, OTHER, SELFPAY ==
[2020-07-18 00:34] VITALS: BMI 29.2
[2020-10-28] VITALS (18 sets, daily range): BP systolic 129–165; BP diastolic 60–73; PULSE 40–57; RESP 17–34; TEMP 36.4–36.9; O2SAT 95–98; BMI 26.7
--- NOTE | 2020-10-28 | DI.ECHO.S_ITS ---
[place] [facility]---------+ [facility] +---------+ : : [address] : : [place], [place] : : : : [id number] : : : : Phone: [phone]+ Echocardiogram Report + + :Name: ALEC BANG Study Date: 10/29/2020 Height: 63 in : :[facility] ReadingLocation: Weight: 151 lb : : Gender: Female BSA: 1.7 m2 : :: 1950 Age: 70 yrs BP: 150/69 mmHg: :Reason For Study: SYMPTOMATIC BRADYCARIDA IN CHF PATIENT : :Ordering Physician: Sola AMBROSEformed By: Norma Hrarell : :Referring: GABY AMBROSE : + + Interpretation Summary Limited Echo: 1) Normal left ventricular size and thickness with mildly to moderately reduced systolic function (EF 40-45%). 2) Sinus bradycardia with HR in the 40s present during the study. 3) Compared to the prior Echo done , LVEF has improved significant from 15-20% to 40-45% on this study. Procedure: A two-dimensional transthoracic echocardiogram with color flow and Doppler was performed in limited views only to assess ejection fraction.. The study quality was technically adequate. Comparison is made with the echocardiogram of 07/18/2020. The patient was in sinus bradycardia with heart rates between 42-54 bpm during the exam. Left Ventricle: The estimated left ventricular end diastolic volume is 93 ml. The left ventricle is normal in size and wall thickness. The ejection fraction is estimated to be 40-45%. Right Ventricle: The right ventricle is normal in size and function. Atria: Both atria are normal in size. Mitral Valve: There is mild mitral regurgitation. Great Vessels: The IVC is of normal diameter and collapses greater than 50% with a sniff. This suggests a low right atrial pressure of 3 mm Hg. Pericardium/ Pleura There is no pericardial effusion. There is no pleural effusion. MMode/2D Measurements & Calculations LVIDd: 5.6 cm LA A2 area: 19.7 cm2 LVIDs: 4.6 cm LA A4 area: 13.9 cm2 FS: 18.5 % LA length (vol): 4.8 cm IVSd: 0.95 cm LA vol: 48.7 ml LVPWd: 0.75 cm LA vol index: 28.4 ml/m2 LV alvarado. diameter/BSA (cm/m^2): 3.3 LV sys. diameter/BSA (cm/m^2): 2.7 RA long axis: 5.2 cm RVD1 (basal): 2.8 cm RA area: 14.0 cm2 TAPSE: 2.3 cm RA vol: 31.7 ml RA : 18.5 ml/m2 IVC diam: 1.3 cm Reading Physician:10:44 AM
--- NOTE | 2020-10-28 16:28 | DI.RAD.S_ITS ---
PROCEDURE: XR CHEST 1V INDICATIONS: CHF, dizzy, weak TECHNIQUE: One view of the chest was acquired. COMPARISON: [facility], CT, CT ANGIO CHEST PE PROTOCOL, 07/17/2020, 19:36. [facility], CR, XR CHEST 1V, 07/17/2020, 17:58. [facility], CR, XR CHEST 2V, 07/27/2020, 15:37. FINDINGS: Surgical changes and devices: None. Lungs and pleura: Lungs are clear. No pleural effusions or pneumothorax. Mediastinum: The cardiac contours are within normal limits. The aorta demonstrates calcification and tortuosity. Bones and chest wall: No suspicious bony lesions. Mild, age-appropriate degenerative changes are noted. Overlying soft tissues appear unremarkable. IMPRESSION: No significant portable chest abnormality is seen for age. Dictated by: Felipe Rosario M.D. on 10/28/2020 at 15:50 Approved by: Felipe Rosario M.D. on 10/28/2020 at 15:53
[2020-10-28 16:50] LABS: Add Manual Diff / Slide Review NO; Basophils Absolute Auto 100 /uL (0-100); Basophils Percent Auto 0.8 % (0-2); Eosinophils Absolute Auto 200 /uL (0-450); Eosinophils Percent Auto 2.3 % (2-4); Hematocrit 38.7 % (36-46); Lymphocytes Absolute Auto 1900 /uL (1100-4500); Lymphocytes Percent Auto 24.9 % (25-40); Mean Corpuscular HGB Conc 33.4 % (30-36); Mean Corpuscular Volume 89.6 fL (80-100); Monocytes Absolute Auto 600 /uL (0-900); Monocytes Percent Auto 8.2 % (3-14); Neutrophils Absolute Auto 4900 /uL (1500-7000); Neutrophils Percent Auto 63.8 % (50-75); Platelet Count 252 X10^3/uL (150-400); Red Blood Cell Count 4.32 X10^6/uL (4.0-5.2); Red Cell Distribution Width 15.4 % (11.6-14.8); White Blood Cell Count 7.6 X10^3/uL (4.5-11.0)
[2020-10-28 16:57] LABS: INR 1.1 (0.9-1.3); Prothrombin Time 12.7 SECONDS (10.1-12.7)
[2020-10-28 17:01] LABS: Creatine Kinase 69 U/L (30-135)
[2020-10-28 17:02] LABS: Alanine Aminotransferase 22 IU/L (<35); Albumin 4.1 g/dL (3.5-5.0); Albumin Globulin Ratio 1.5 (1.0-2.8); Alkaline Phosphatase 70 U/L (38-126); Aspartate Aminotransferase 33 IU/L (14-36); Bilirubin Total 0.4 mg/dL (0.2-1.3); Blood Urea Nitrogen 14 mg/dL (7-17); Calcium 9.5 mg/dL (8.4-10.2); Carbon Dioxide 28 mmol/L (22-32); Chloride 104 mmol/L (98-107); Estimated Glomerular Filt Rate > 60.0 mL/min (>60); Globulin 2.8 g/dL (1.7-4.1); Glucose 123 mg/dL (80-110); HEMOLYSIS < 15 (0-50); Potassium 3.9 mmol/L (3.4-5.1); Sodium 140 mmol/L (137-145); Total Protein 6.9 g/dL (6.3-8.2)
[2020-10-28 17:11] LABS: NT-proBNP (BNP-Adult 18+) 249 pg/mL (<125)
[2020-10-28 17:14] LABS: Troponin I < 0.012 ng/mL (0.01-0.034)
--- NOTE | 2020-10-28 17:16 | ED.GENADULT ---
HPI - General Adult General Chief complaint: Dizziness Stated complaint: CHF, dizzy, disoriented Time Seen by Provider: 10/28/20 16:27 Source: patient and family Mode of arrival: Ambulatory Limitations: no limitations History of Present Illness HPI narrative: Patient here with daughter. Complains of increasing past month of dizziness and fatigue. Patient sees cardiology Dr. Land. Has history of congestive heart failure. Is on metoprolol. Has been journaling her vital signs and weight in the past 2 months. Has had low heart rate. Has had forgetfulness as well. Denies any chest pain. Denies any swelling of the limbs. Patient states has been losing weight. Patient is on metoprolol. Related Data Home Medications Medication Instructions Recorded Confirmed sennosides [senna] 17.2 mg PO HS #0 10/27/17 10/28/20 docusate sodium [Colace] 100 mg PO DAILY 07/17/20 10/28/20 trazodone 300 mg PO QPM 07/17/20 10/28/20 aspirin 81 mg PO DAILY 10/02/20 10/28/20 alprazolam 0.25 mg PO BEDTIME 10/28/20 10/28/20 losartan 12.5 mg PO QPM 10/28/20 10/28/20 metoprolol succinate 50 mg PO BID 10/28/20 10/28/20 Previous Rx's Medication Instructions Recorded atorvastatin [Lipitor] 40 mg PO BEDTIME #30 tab 07/19/20 spironolactone 12.5 mg PO DAILY #15 tab 07/19/20 Allergies Allergy/AdvReac Type Severity Reaction Status Date / Time No Known Drug Allergies Allergy Verified 04/03/18 17:34 Review of Systems Review of Systems Narrative: GENERAL: Denies chills, complains fatigue, malaise, denies fever, sweats. HEENT: Denies sinus pain, ear pain, sore throat RESPIRATORY: Denies dyspnea, cough CARDIOVASCULAR: Denies chest pain, palpitations GASTROINTESTINAL: Denies nausea, vomiting, abdominal pain : Denies dysuria, frequency, hematuria MUSCULOSKELETAL: denies muscle or bony pain SKIN: Denies rash, skin lesions NEUROLOGIC: Denies weakness, numbness ROS Unobtainable: All systems reviewed & are unremarkable except as noted in HPI and below Patient History Medical History CHF (congestive heart failure) History of spinal fracture Migraine Surgical History History of bladder surgery History of History of facial fracture repair Hx of lumbosacral spine surgery Family History Father Diabetes mellitus Stroke Mother Breast cancer Son Stroke Social History household members: family Smoking Status: Never smoker alcohol intake: current Smoking Status: Never smoker alcohol intake frequency: 0-2 drinks per day Substance Use Type: does not use Exam Narrative Exam Narrative: GENERAL: in no distress, not toxic not dyspneic HEAD: Normocephalic. EYES: Pupils equal round No scleral icterus. No injection no discharge ENT: Mucous membranes moist. NECK: Trachea midline. CARDIOVASCULAR: Regular rate and rhythm without murmurs, bradycardia RESPIRATORY: Clear to auscultation. Breath sounds equal bilaterally. No wheezes, rales, or rhonchi. GASTROINTESTINAL: Abdomen soft, non-tender EXTREMITIES: No gross deformities. BACK: No flank tenderness. NEURO: AOx4. SKIN: Warm and dry PSYCH: Not anxious, is cooperative Initial Vital Signs Initial Vital Signs: Vital Signs Pulse Rate 57 L 10/28/20 16:30 Blood Pressure 156/73 H 10/28/20 16:30 Pulse Oximetry 97 10/28/20 16:30 Course Course Course Narrative: Blood pressure stable. However heart rate will lowered down to as low as upper 30s. Decision to Admit Date: 10/28/20 Decision to Admit time: 18:39 Orders Ordered: Albuterol (Albuterol Hfa Mdi 60 Puff/8 Gm Inhaler) 1 puff INH PRN PRN PRN Reason: Shortness Of Breath Aspirin (Aspirin Ec 81 Mg Tablet) 81 mg PO DAILY [facility] Atorvastatin Calcium (Atorvastatin 20 Mg Tablet) 40 mg PO BEDTIME [facility] Last Admin: 10/28/20 22:41 Dose: 40 mg Documented by: NATHANIEL Docusate Sodium (Docusate 100 Mg Capsule) 100 mg PO BID [facility] Last Admin: 10/28/20 22:40 Dose: 100 mg Documented by: NATHANIEL Enoxaparin Sodium (Enoxaparin 40 Mg/0.4 Ml Syringe) 40 mg SUBCUT DAILY [facility] Losartan Potassium (Losartan 25 Mg Tablet) 12.5 mg PO QPM [facility] Metoprolol Tartrate (Metoprolol Ir 25 Mg Tablet) 25 mg PO BID [facility] Naloxone HCl (Naloxone 0.4 Mg/Ml Vial) 0.2 mg IV Q2MIN PRN PRN Reason: Opiate Reversal Ondansetron HCl (Ondansetron 4 Mg/2 Ml Inj) 4 mg IV Q8HR PRN PRN Reason: Nausea And Vomiting Sennosides (Sennosides 8.6 Mg Tablet) 17.2 mg PO BEDTIME [facility] Last Admin: 10/28/20 22:40 Dose: 17.2 mg Documented by: NATHANIEL Sodium Chloride (Sodium Chloride 0.9% Flush) 10 ml IV PRN PRN PRN Reason: Flush Sodium Chloride (Sodium Chloride 0.9% Flush) 10 ml IV BID [facility] Trazodone HCl (Trazodone 50 Mg Tablet) 300 mg PO QPM [facility] Last Admin: 10/28/20 22:41 Dose: 300 mg Documented by: NATHANIEL Discontinued Medications Aspirin (Aspirin Ec 81 Mg Tablet) 81 mg PO DAILY [facility] Reevaluation(s) Reevaluation #1: Reviewed results with patient and patient and daughter agree for observation tonight Time: 18:39 Reevaluation #2: Spoke with patient's traffic circuit engineer dr land, patient to be admitted tonight for observation. Hold metoprolol. Continue tomorrow with metoprolol 25 mg Time: 18:40 Consultations Consultation #1: Spoke with hospitalistStephani, will admit Time: 19:36 Vital Signs Vital signs: Vital Signs - 8 hr 10/28/20 16:44 Temperature 98.1 F Pulse Rate 50 L Respiratory Rate 24 Blood Pressure 156/73 H Pulse Oximetry 98 Medical Decision Making Differential Diagnosis Differential Diagnosis: Bradycardia/CHF Medical Records Medical records reviewed: Yes I reviewed the patient's medical records. Lab Data Lab results reviewed: Yes I reviewed the patient's lab results. Result diagrams: 10/29/20 05:30 10/29/20 05:30 Labs: Lab Results 10/28/20 10/28/20 10/28/20 Range/Units 16:42 16:42 16:42 WBC 7.6 (4.5-11.0) X10^3/uL RBC 4.32 (4.0-5.2) X10^6/uL Hgb 13.0 (12.0-16.0) g/dL Hct 38.7 (36-46) % MCV 89.6 (80-100) fL MCH 30.0 (26-34) PG MCHC 33.4 (30-36) % RDW 15.4 H (11.6-14.8) % Plt Count 252 (150-400) X10^3/uL Neut % (Auto) 63.8 (50-75) % Lymph % (Auto) 24.9 L (25-40) % [place] % (Auto) 8.2 (3-14) % Eos % (Auto) 2.3 (2-4) % Baso % (Auto) 0.8 (0-2) % Neut # (Auto) 4900 (5169-3097) /uL Lymph # (Auto) 1900 (5064-7554) /uL [place] # (Auto) 600 (0-900) /uL Eos # (Auto) 200 (0-450) /uL Baso # (Auto) 100 (0-100) /uL PT 12.7 (10.1-12.7) SECONDS INR 1.1 (0.9-1.3) Sodium 140 (137-145) mmol/L Potassium 3.9 (3.4-5.1) mmol/L Chloride 104 (98-107) mmol/L Carbon Dioxide 28 (22-32) mmol/L BUN 14 (7-17) mg/dL Creatinine 0.61 (0.52-1.04) mg/dL Estimated GFR > 60.0 (>60) mL/min BUN/Creatinine Ratio 23.0 H (6-22) Glucose 123 H (80-110) mg/dL Calcium 9.5 (8.4-10.2) mg/dL Total Bilirubin 0.4 (0.2-1.3) mg/dL AST 33 (14-36) IU/L ALT 22 (<35) IU/L Alkaline Phosphatase 70 (38-126) U/L Total Creatine Kinase (30-135) U/L CK-MB (CK-2) CK-MB (CK-2) Rel Index Troponin I (0.01-0.034) ng/mL NT-Pro-B Natriuret Pep 249 H (<125) pg/mL Total Protein 6.9 (6.3-8.2) g/dL Albumin 4.1 (3.5-5.0) g/dL Globulin 2.8 (1.7-4.1) g/dL Albumin/Globulin Ratio 1.5 (1.0-2.8) SARS-CoV-2 (PCR) (Negative) 10/28/20 10/28/20 Range/Units 16:42 19:05 WBC (4.5-11.0) X10^3/uL RBC (4.0-5.2) X10^6/uL Hgb (12.0-16.0) g/dL Hct (36-46) % MCV (80-100) fL MCH (26-34) PG MCHC (30-36) % RDW (11.6-14.8) % Plt Count (150-400) X10^3/uL Neut % (Auto) (50-75) % Lymph % (Auto) (25-40) % [place] % (Auto) (3-14) % Eos % (Auto) (2-4) % Baso % (Auto) (0-2) % Neut # (Auto) (2966-0534) /uL Lymph # (Auto) (2099-7744) /uL [place] # (Auto) (0-900) /uL Eos # (Auto) (0-450) /uL Baso # (Auto) (0-100) /uL PT (10.1-12.7) SECONDS INR (0.9-1.3) Sodium (137-145) mmol/L Potassium (3.4-5.1) mmol/L Chloride (98-107) mmol/L Carbon Dioxide (22-32) mmol/L BUN (7-17) mg/dL Creatinine (0.52-1.04) mg/dL Estimated GFR (>60) mL/min BUN/Creatinine Ratio (6-22) Glucose (80-110) mg/dL Calcium (8.4-10.2) mg/dL Total Bilirubin (0.2-1.3) mg/dL AST (14-36) IU/L ALT (<35) IU/L Alkaline Phosphatase (38-126) U/L Total Creatine Kinase 69 (30-135) U/L CK-MB (CK-2) TNP CK-MB (CK-2) Rel Index TNP Troponin I < 0.012 (0.01-0.034) ng/mL NT-Pro-B Natriuret Pep (<125) pg/mL Total Protein (6.3-8.2) g/dL Albumin (3.5-5.0) g/dL Globulin (1.7-4.1) g/dL Albumin/Globulin Ratio (1.0-2.8) SARS-CoV-2 (PCR) Negative (Negative) Imaging Data Chest x-ray: Radiologist's Impression: [facility] [place] [id number] ReportSigned Patient: Ava Lynn FMR#: [id number]: 1950cct:[id number]/Sex: 70 / FDate of Service: 10/28/20Loc: EDAccession Number: [id number] Procedure: XR chest 1V Ordering Provider: Devon Vasquez D.O. PROCEDURE: XR CHEST 1V INDICATIONS: CHF, dizzy, weak TECHNIQUE: One view of the chest was acquired. COMPARISON: [facility], CT, CT ANGIO CHEST PE PROTOCOL, 07/17/2020, 19:36. [facility], CR, XR CHEST 1V, 07/17/2020, 17:58. [facility], CR, XR CHEST 2V, 07/27/2020, 15:37. FINDINGS: Surgical changes and devices: None. Lungs and pleura: Lungs are clear. No pleural effusions or pneumothorax. Mediastinum: The cardiac contours are within normal limits. The aorta demonstrates calcification and tortuosity. Bones and chest wall: No suspicious bony lesions. Mild, age-appropriate degenerative changes are noted. Overlying soft tissues appear unremarkable. IMPRESSION: No significant portable chest abnormality is seen for age. Dictated by: Felipe Rosario M.D. on 10/28/2020 at 15:50 Approved by: Felipe Rosario M.D. on 10/28/2020 at 15:53 ECG Data Attestation: I personally reviewed and interpreted this ECG as follows: Interpretation: Sinus bradycardia ventricular rate 51, no ST elevation depression MDM Narrative Medical decision making narrative: Appropriate for admission for symptomatic bradycardia as suggested by patient's traffic circuit engineer. Discharge Plan Departure Patient Disposition: Admitted as Observation Clinical Impression: Symptomatic sinus bradycardia Admit Date/Time: 10/28/20 19:36 Admit Provider: Eliza Medrano
[2020-10-28 19:50] LABS: COVID19 - ADMIT (NP swab/PCR) Negative (Negative)
--- NOTE | 2020-10-28 21:28 | PM.HP.1 ---
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 Correia cooler operator. She developed dizziness and weakness with decreased appetite in not drinking much due to her prior diagnosis of CHF. She felt dizzy and like she was going to pass out. She denies shortness of breath or falling. [place] and the friend that is with her states that she is very unsteady on her feet and uses a cane. She has patient states that is particularly bad when the ground is uneven. She states she is very active but not as active as she would like to be. She has chronic constipation and takes stool softeners for this. She has had a poor appetite but does not have any nausea or vomiting. On presentation to the ED her heart rate was ranging from a low of 30 to a high of low 40s. In June 2020, she was admitted and found to be in significant heart failure with an ejection fraction ranging between 15 and 20. Her echocardiogram appeared to indicate that she had had a prior myocardial infarction. She was initiated on a statin as well as metoprolol 50 mg twice daily and losartan. In the emergency department they consulted with Dr. Correia who recommended an overnight observation stay, withholding her at night time dose of metoprolol and lowering the dose to half of what she normally takes. She is currently afebrile, blood pressure 165/64, heart rate 45, respiratory rate 17, oxygen saturation 90% on room air, she weighs 68.4 kg with a BMI of 26.7. CBC and chemistries are largely within normal limits glucose is mildly elevated at 123. Brain natretic peptide is 249, significantly improved over her prior admission. COVID-19 PCR is negative. Patient History Medical History CHF (congestive heart failure) History of spinal fracture Migraine Surgical History History of bladder surgery History of History of facial fracture repair Hx of lumbosacral spine surgery Family & Social History Family History Father Diabetes mellitus Stroke Mother Breast cancer Son Stroke Social History: household members family Prior Living Arrangements House Safety & Behavioral: Feels Safe in Current Yes Environment Been Physically Hurt or No Threatened By a Person Suicidal Ideation Description None Suicide Plan Description No Plan Tobacco & Substance use: Smoking Status Never smoker alcohol intake current alcohol intake frequency 0-2 drinks per day Substance Use Type does not use Meds Home Medications and Allergies Home Medications Medication Instructions Recorded Confirmed Type sennosides [senna] 17.2 mg PO HS #0 10/27/17 10/28/20 History docusate sodium [Colace] 100 mg PO DAILY 07/17/20 10/28/20 History trazodone 300 mg PO QPM 07/17/20 10/28/20 History atorvastatin [Lipitor] 40 mg PO BEDTIME #30 tab 07/19/20 10/28/20 Rx spironolactone 12.5 mg PO DAILY #15 tab 07/19/20 10/28/20 Rx aspirin 81 mg PO DAILY 10/02/20 10/28/20 History alprazolam 0.25 mg PO BEDTIME 10/28/20 10/28/20 History losartan 12.5 mg PO QPM 10/28/20 10/28/20 History metoprolol succinate 50 mg PO BID 10/28/20 10/28/20 History Allergies Allergy/AdvReac Type Severity Reaction Status Date / Time No Known Drug Allergies Allergy Verified 04/03/18 17:34 Review of Systems Review of Systems ROS: Yes All systems reviewed with the patient and are negative except as otherwise documented Exam Vital Signs (past 8 hours): - 10/28/20 16:30 10/28/20 16:44 10/28/20 16:45 Temperature 98.1 F Pulse Rate 57 L 50 L 55 L Respiratory Rate 24 32 H Blood Pressure 156/73 H 156/73 H 147/67 H Pulse Oximetry 97 98 98 10/28/20 17:00 10/28/20 17:15 10/28/20 17:30 Temperature Pulse Rate 47 L 47 L 47 L Respiratory Rate 25 H 32 H Blood Pressure 136/63 138/65 138/60 Pulse Oximetry 98 96 95 10/28/20 17:45 10/28/20 18:00 10/28/20 18:15 Temperature Pulse Rate 48 L 47 L 45 L Respiratory Rate Blood Pressure 139/63 138/70 129/65 Pulse Oximetry 95 97 97 10/28/20 18:30 10/28/20 18:45 10/28/20 19:00 Temperature Pulse Rate 49 L 41 L 50 L Respiratory Rate 28 H 34 H Blood Pressure 158/70 H 147/67 H 145/71 H Pulse Oximetry 98 96 97 10/28/20 19:15 10/28/20 19:30 10/28/20 19:45 Temperature Pulse Rate 45 L 48 L 46 L Respiratory Rate 32 H 27 H 26 H Blood Pressure 147/71 H 138/66 150/69 H Pulse Oximetry 97 97 96 10/28/20 20:20 Temperature 98.5 F Pulse Rate 45 L Respiratory Rate 17 Blood Pressure 165/64 H Pulse Oximetry 98 Oxygen Delivery Method Room Air Narrative Exam Narrative: Gen: Alert, oriented, well-developed 70 y.o. female, NAD HEENT: normocephalic, atraumatic, conjunctiva clear, sclera non-icteric, oral mucosa pink and moist Neck: supple, full ROM, no JVD, trachea is midline Resp: Lungs CTA, non-labored breathing CV: RRR, no murmur or rubs Abd: soft, non-tender, normoactive BTs Skin: no lesions or rashes, dry and intact Neuro: Alert and oriented X 4 w/no focal deficits. Speech clear and coherent. Extremities: no edema, in fact appears dry, moves all 4 extremities, is ambulatory with a cane, negative Asael?s sign Psyche: normal mood and affect. Objective Labs Result Diagrams: 10/28/20 16:42 10/28/20 16:42 Labs: Laboratory Results - last 24 hr 10/28/20 10/28/20 10/28/20 16:42 16:42 16:42 WBC 7.6 RBC 4.32 Hgb 13.0 Hct 38.7 MCV 89.6 MCH 30.0 MCHC 33.4 RDW 15.4 H Plt Count 252 Neut % (Auto) 63.8 Lymph % (Auto) 24.9 L [place] % (Auto) 8.2 Eos % (Auto) 2.3 Baso % (Auto) 0.8 Neut # (Auto) 4900 Lymph # (Auto) 1900 [place] # (Auto) 600 Eos # (Auto) 200 Baso # (Auto) 100 PT 12.7 INR 1.1 Sodium 140 Potassium 3.9 Chloride 104 Carbon Dioxide 28 BUN 14 Creatinine 0.61 Estimated GFR > 60.0 BUN/Creatinine Ratio 23.0 H Glucose 123 H Calcium 9.5 Total Bilirubin 0.4 AST 33 ALT 22 Alkaline Phosphatase 70 Total Creatine Kinase CK-MB (CK-2) CK-MB (CK-2) Rel Index Troponin I NT-Pro-B Natriuret Pep 249 H Total Protein 6.9 Albumin 4.1 Globulin 2.8 Albumin/Globulin Ratio 1.5 SARS-CoV-2 (PCR) 10/28/20 10/28/20 16:42 19:05 WBC RBC Hgb Hct MCV MCH MCHC RDW Plt Count Neut % (Auto) Lymph % (Auto) [place] % (Auto) Eos % (Auto) Baso % (Auto) Neut # (Auto) Lymph # (Auto) [place] # (Auto) Eos # (Auto) Baso # (Auto) PT INR Sodium Potassium Chloride Carbon Dioxide BUN Creatinine Estimated GFR BUN/Creatinine Ratio Glucose Calcium Total Bilirubin AST ALT Alkaline Phosphatase Total Creatine Kinase 69 CK-MB (CK-2) TNP CK-MB (CK-2) Rel Index TNP Troponin I < 0.012 NT-Pro-B Natriuret Pep Total Protein Albumin Globulin Albumin/Globulin Ratio SARS-CoV-2 (PCR) Negative Assessment & Plan Assessment & Plan narrative: Ava Lynn will be placed into observation for symptomatic bradycardia. Symptomatic bradycardia, acute, present on admission -discussion was made with her cooler operator who recommended overnight observation and reduction of her beta-fauzia -her beta-fauzia dose for tonight has been held and she will start on metoprolol IR 25 mg b.i.d. -question high dose of trazodone and alprazolam which may also be contributing to bradycardia, question polypharmacy -continue losartan 12.5 mg in the evening Chronic systolic heart failure with an ejection fraction of 15-20%, diagnosed in June of 2020, stable, CHADS vasc score of 5 -BNP is vastly improved over her June admission but will order a limited echocardiogram -holding spironolactone. She had previously been prescribed furosemide prn for swelling but states has not been taking since the admission in June. Hyperlipidemia diagnosed in June 2020 -continue atorvastatin 40 mg p.o. at bedtime VTE prophylaxis: Wells risk score: 0 Enoxaparin 40 mg subQ daily Consults: Dr. Correia, cardiology, consult and involvement is appreciated. Patient is observation status as her stay is not likely to exceed 2 midnights. FEN: Saline lock, Heart healthy diet w/no added salt, BMP and magnesium in the am. Dispo: probable d/c to home Code Status: Full code as discussed with patient COVID-19 COVID-19 status: Negative Result date/Date tested (Pos, Neg/Pending): 10/28/20 Scores CHADS-VASc Congestive heart failure: yes Hypertension: yes Age 75 years or older: no Diabetes mellitus: no Stroke, TIA, or TE: no Vascular disease: yes Age 65 to 74 years: yes Sex category (female): Female CHADS-VASc Score: 5 Quality VTE Deep Vein Thrombosis/Pulmonary Embolism Present on Admission: No MIPS - Admit I confirm the patient?s Advance Care Plan is present, Code status is documented, Surrogate decision maker is in patient?s record [If Yes, STOP here]: Yes MIPS - DC The patient has current or prior documentation of left ventricular ejection fraction (LVEF) less than 40%, or moderate or severely depressed left ventricular systolic function.: Yes A. The patient was prescribed or already taking an Angiotensin-Converting Enzyme (LACEY) Inhibitor, or Angiotensin Receptor Fauzia (ARB).: Yes B. The patient was prescribed or already taking a beta-fauzia. [If Yes to Both A & B, STOP here]: Yes
[2020-10-28 22:09] LABS: Troponin I < 0.012 ng/mL (0.01-0.034)
[2020-10-28] MEDS: DOCUSATE 100 MG CAPSULE PO (22:40)
[2020-10-28] MEDS: SENNOSIDES 8.6 MG TABLET 17.2 MG PO (22:40)
[2020-10-28] MEDS: ATORVASTATIN 20 MG TABLET 40 MG PO (22:41)
[2020-10-28] MEDS: TRAZODONE 50 MG TABLET 300 MG PO (22:41)
[2020-10-29 04:40] VITALS: BP 123/64; PULSE 46; RESP 16; TEMP 36.1; O2SAT 94
[2020-10-29 05:54] LABS: Add Manual Diff / Slide Review NO; Basophils Absolute Auto 100 /uL (0-100); Basophils Percent Auto 1.3 % (0-2); Eosinophils Absolute Auto 200 /uL (0-450); Hematocrit 37.8 % (36-46); Hemoglobin 12.6 g/dL (12.0-16.0); Lymphocytes Absolute Auto 2000 /uL (1100-4500); Lymphocytes Percent Auto 28.4 % (25-40); Mean Corpuscular HGB Conc 33.4 % (30-36); Mean Corpuscular Volume 89.8 fL (80-100); Monocytes Absolute Auto 700 /uL (0-900); Monocytes Percent Auto 9.8 % (3-14); Neutrophils Absolute Auto 4000 /uL (1500-7000); Neutrophils Percent Auto 57.5 % (50-75); Platelet Count 224 X10^3/uL (150-400); Red Blood Cell Count 4.21 X10^6/uL (4.0-5.2); Red Cell Distribution Width 15.2 % (11.6-14.8)
[2020-10-29 06:05] LABS: BUN Creatinine Ratio 15.4 (6-22); Blood Urea Nitrogen 10 mg/dL (7-17); Calcium 9.3 mg/dL (8.4-10.2); Carbon Dioxide 29 mmol/L (22-32); Chloride 106 mmol/L (98-107); Estimated Glomerular Filt Rate > 60.0 mL/min (>60); Glucose 103 mg/dL (80-110); HEMOLYSIS < 15 (0-50); Magnesium 1.9 mg/dL (1.6-2.3); Potassium 4.1 mmol/L (3.4-5.1); Sodium 140 mmol/L (137-145)
[2020-10-29 07:00] VITALS: O2SAT 96
[2020-10-29 07:20] VITALS: BP 111/57; PULSE 66; RESP 97; TEMP 36.6
--- NOTE | 2020-10-29 08:33 | P.DS_ITS ---
History of Present Illness History of Present Illness Date Patient Seen: 10/29/20 Time Patient Seen: 08:33 Chief complaint: CHF, dizzy, disoriented Narrative: RAPHAEL Barnett: Ava Lynn is a 70-year-old female with a recent diagnosis in June 2020 of systolic congestive heart failure who sees Dr. Correia technical support technician. She developed dizziness and weakness with decreased appetite in not drinking much due to her prior diagnosis of CHF. She felt dizzy and like she was going to pass out. She denies shortness of breath or falling. [place] and the friend that is with her states that she is very unsteady on her feet and uses a cane. She has patient states that is particularly bad when the ground is uneven. She states she is very active but not as active as she would like to be. She has chronic constipation and takes stool softeners for this. She has had a poor appetite but does not have any nausea or vomiting. On presentation to the ED her heart rate was ranging from a low of 30 to a high of low 40s. In June 2020, she was admitted and found to be in significant heart failure with an ejection fraction ranging between 15 and 20. Her echocardiogram appeared to indicate that she had had a prior myocardial infarction. She was initiated on a statin as well as metoprolol 50 mg twice daily and losartan. In the emergency department they consulted with Dr. Correia who recommended an overnight observation stay, withholding her at night time dose of metoprolol and lowering the dose to half of what she normally takes. She is currently afebrile, blood pressure 165/64, heart rate 45, respiratory rate 17, oxygen saturation 90% on room air, she weighs 68.4 kg with a BMI of 26.7. CBC and chemistries are largely within normal limits glucose is mildly elevated at 123. Brain natretic peptide is 249, significantly improved over her prior admission. COVID-19 PCR is negative. Discharge Providers Provider Date of admission: 10/28/20 19:36 Discharge Date: 10/29/20 Primary care physician: Maximo Vivas MD Consults: 10/28/20 21:23 Consult to Cardiology Routine Comment: Consulting Provider: Price Correia Reason for consultation: Symptomatic bradycardia Has provider been notified: Yes Discharge provider: Clive Rizvi DO Summary Hospital Course Discharge Diagnosis: 1.Symptomatic bradycardia, acute, present on admission 2. Chronic heart failure with previous systolic heart failure, diagnosed in June of 2020, improved now with EF borderline at 40-45%. 3. Hyperlipidemia diagnosed in June 2020 Hospital Course: This is a 66-year-old female with recently diagnosed systolic heart failure back in June of 2020, hyperlipidemia who was admitted over concern for symptomatic bradycardia. Her home beta-samson was held, given her heart rate was in the upper 30s to low 40s on admission. Her dizziness is symptoms did improve the following morning with cessation of her beta-samson and her heart rate had generally improved to the 50s. Other possibilities for her symptoms include polypharmacy in the setting of benzodiazepines at home. Recommended stopping her home benzodiazepine as well as home metoprolol and fol low up with her outpatient technical support technician for further management her medications. Echocardiogram was performed which showed a marked improvement in her ejection fraction to now 40-45%. Exam Vital Signs (past 8 hours): - 10/29/20 04:40 10/29/20 07:20 Temperature 97.0 F L 97.9 F Pulse Rate 46 L 66 Respiratory Rate 16 97 H Blood Pressure 123/64 111/57 L Pulse Oximetry 94 Oxygen Delivery Method Room Air Oxygen Flow Rate 97 Narrative Exam Narrative: Gen: Alert, oriented, well-developed 70 y.o. female, NAD HEENT: normocephalic, atraumatic, conjunctiva clear, sclera non-icteric, oral mucosa pink and moist Neck: supple, full ROM, no JVD, trachea is midline Resp: Lungs CTA, non-labored breathing CV: bradycardic rate, regular rhythm, no murmur or rubs Abd: soft, non-tender, normoactive BTs Skin: no lesions or rashes, dry and intact Neuro: Alert and oriented X 4 w/no focal deficits. Speech clear and coherent. Extremities: no edema, in fact appears dry, moves all 4 extremities, is ambulatory with a cane, negative Asael?s sign Psyche: normal mood and affect. Objective Labs Result Diagrams: 10/29/20 05:30 10/29/20 05:30 Labs: Laboratory Results - last 24 hr 10/28/20 10/28/20 10/28/20 16:42 16:42 16:42 WBC 7.6 RBC 4.32 Hgb 13.0 Hct 38.7 MCV 89.6 MCH 30.0 MCHC 33.4 RDW 15.4 H Plt Count 252 Neut % (Auto) 63.8 Lymph % (Auto) 24.9 L [place] % (Auto) 8.2 Eos % (Auto) 2.3 Baso % (Auto) 0.8 Neut # (Auto) 4900 Lymph # (Auto) 1900 [place] # (Auto) 600 Eos # (Auto) 200 Baso # (Auto) 100 PT 12.7 INR 1.1 Sodium 140 Potassium 3.9 Chloride 104 Carbon Dioxide 28 BUN 14 Creatinine 0.61 Estimated GFR > 60.0 BUN/Creatinine Ratio 23.0 H Glucose 123 H Calcium 9.5 Magnesium Total Bilirubin 0.4 AST 33 ALT 22 Alkaline Phosphatase 70 Total Creatine Kinase CK-MB (CK-2) CK-MB (CK-2) Rel Index Troponin I NT-Pro-B Natriuret Pep 249 H Total Protein 6.9 Albumin 4.1 Globulin 2.8 Albumin/Globulin Ratio 1.5 SARS-CoV-2 (PCR) 10/28/20 10/28/20 10/28/20 16:42 19:05 21:40 WBC RBC Hgb Hct MCV MCH MCHC RDW Plt Count Neut % (Auto) Lymph % (Auto) [place] % (Auto) Eos % (Auto) Baso % (Auto) Neut # (Auto) Lymph # (Auto) [place] # (Auto) Eos # (Auto) Baso # (Auto) PT INR Sodium Potassium Chloride Carbon Dioxide BUN Creatinine Estimated GFR BUN/Creatinine Ratio Glucose Calcium Magnesium Total Bilirubin AST ALT Alkaline Phosphatase Total Creatine Kinase 69 CK-MB (CK-2) TNP CK-MB (CK-2) Rel Index TNP Troponin I < 0.012 < 0.012 NT-Pro-B Natriuret Pep Total Protein Albumin Globulin Albumin/Globulin Ratio SARS-CoV-2 (PCR) Negative 10/29/20 10/29/20 05:30 05:30 WBC 7.0 RBC 4.21 Hgb 12.6 Hct 37.8 MCV 89.8 MCH 30.0 MCHC 33.4 RDW 15.2 H Plt Count 224 Neut % (Auto) 57.5 Lymph % (Auto) 28.4 [place] % (Auto) 9.8 Eos % (Auto) 3.0 Baso % (Auto) 1.3 Neut # (Auto) 4000 Lymph # (Auto) 2000 [place] # (Auto) 700 Eos # (Auto) 200 Baso # (Auto) 100 PT INR Sodium 140 Potassium 4.1 Chloride 106 Carbon Dioxide 29 BUN 10 Creatinine 0.65 Estimated GFR > 60.0 BUN/Creatinine Ratio 15.4 Glucose 103 Calcium 9.3 Magnesium 1.9 Total Bilirubin AST ALT Alkaline Phosphatase Total Creatine Kinase CK-MB (CK-2) CK-MB (CK-2) Rel Index Troponin I NT-Pro-B Natriuret Pep Total Protein Albumin Globulin Albumin/Globulin Ratio SARS-CoV-2 (PCR) PFSH Medical History CHF (congestive heart failure) History of spinal fracture Migraine Surgical History History of bladder surgery History of History of facial fracture repair Hx of lumbosacral spine surgery Family History Father Diabetes mellitus Stroke Mother Breast cancer Son Stroke Social History household members: family Smoking Status: Never smoker alcohol intake: current Discharge Plan Discharge Plan Patient Disposition: Home Provider Discharge Comment: You were admitted to the hospital with possible symptoms of a slow heart rate. Your heart rate improved when removing a medicine which works by slowing your heart rate. Please follow up with your technical support technician to go over the results of the echocardiogram that was performed here and to revisit your medications. Discharge orders & Medications Prescriptions: Continued sennosides [senna] 8.6 MG tablet 17.2 mg PO HS Qty: 0 RF: 0 losartan 25 mg Tablet 12.5 mg PO QPM RF: 0 trazodone 150 mg tablet 300 mg PO QPM RF: 0 docusate sodium [Colace] 100 mg Capsule 100 mg PO DAILY RF: 0 spironolactone 25 mg Tablet 12.5 mg PO DAILY Qty: 15 RF: 0 atorvastatin [Lipitor] 20 mg Tablet 40 mg PO BEDTIME Qty: 30 RF: 0 aspirin 81 mg tablet,delayed release (DR/EC) 81 mg PO DAILY RF: 0 Discontinued metoprolol succinate 50 mg Tablet Extended Release 24 Hr 50 mg PO BID RF: 0 alprazolam 0.25 mg Tablet 0.25 mg PO BEDTIME RF: 0 Follow up/Referrals: Maximo Vivas MD [Primary Care Provider] - Diet/Activity/Treatments Diet: Diet as Tolerated and Low-sodium Activity: As tolerated Visit Report/Discharge Packet Instructions: DI for Bradycardia Discharge Data Primary Care Provider: Maximo Vivas Attending Provider: Eliza Medrano VTE Deep Vein Thrombosis/Pulmonary Embolism Present on Admission: No
[2020-10-29] MEDS: ASPIRIN EC 81 MG TABLET PO (09:03)
[2020-10-29] MEDS: SODIUM CHLORIDE 0.9% FLUSH 10 ML IV (09:03)
[2020-10-29] MEDS: DOCUSATE 100 MG CAPSULE PO (09:03)
[2020-10-29] MEDS: ENOXAPARIN 40 MG/0.4 ML SYRINGE SUBCUT (09:03)
--- NOTE | 2020-10-29 12:32 | PC.NURSE ---
Patient educated about new medications and medications that were to be stopped. Patient was educated about follow up appt. with cardiology and contact was made. The office will be calling her back to confirm an appointment. Patient was educated about ss of stroke, diet, activity, CHF. Patient verbalized understanding to all discharge teaching. Patient left facility with all belongings via private vehicle.
--- NOTE | 2020-10-29 13:26 | CM.DANOTE ---
DCP/Assessment: Reviewed chart. Patient is a 70yr old female admitted to [facility] with CHF symptoms. PCP is Dr. Vivas. Primary payor is 1)Medicare 2)[employer]. Met with patient this AM explained CM/SW role. Patient alert and oriented, resting in bed at time of visit. Patient reports that she was told this AM that she can discharge home today. Patient reports being upset with how provider presented information today. Patient appears mentally fragile during visit. Patient reports losing her spouse of 50yrs last year. SHOOTER HELPER offered support. Patient requesting specific d/c instructions related to her cardiac medications and follow up as outpatient. SHOOTER HELPER discussed with RN/Rachana and she confirms that she will go over all discharge instructions. In addition, RN called channel opener Dr. Correia for follow up appointment. H&P faxed to cardiology office. Per RN/Rachana cardiology office will call patient for follow up outpatient appointment. Patient with concerns related to provider this admit. Provided patient with name/number of quality review specialist for follow up if desired. P: Home today. GUSTAVO Bose Discharge Planning/Care Management CM Discharge Assessment Start: 10/29/20 13:23 Freq: Status: Active Protocol: Document 10/29/20 13:23 KJS (Rec: 10/29/20 13:26 KJS [id number]) Discharge Planning Assessment Assigned Building Guard Deputy Sheriff GUSTAVO Bose Contact Information Michelle Miranda (daughter) [phone] Advance Directives? Yes Advance Directives on File No History Provided By Patient,Medical Record Prior Living Arrangements House Household Members family Type of transporation used prior to Drives own vehicle admit Independent with ADL's Yes Is patient alert and oriented? Yes Caregiver for Another No DME Already Rented / Owned Cane Barriers to Discharge No Discharge Plan Home Transportation Arrangement Family can provide transport. Whiteboard Updated in Patient Room with Yes name and ext. # of Building Guard Deputy Sheriff Review Status In Process Next Review Type Continued Stay Review
== END 2020-10-29 12:00 | disposition home or self-care (01) ==
LOC: ED 19:23 → AC 19:37
PROVIDERS: Emergency Medicine; Admitting Provider Nurse Practitioner Family; Emergency Provider Emergency Medicine; PCP Family Medicine; Referring Provider Internal Medicine Cardiovascular Disease; Visit Provider Nurse Practitioner Family
DX: R42 Dizziness and giddiness (principal); R00.1 Bradycardia, unspecified; I50.22 Chronic systolic (congestive) heart failure; E78.5 Hyperlipidemia, unspecified; Z20.822 Contact with and (suspected) exposure to COVID-19
CPT/HCPCS: 36415; 71045; 80048; 80053; 82550; 83735; 83880; 84484; 85025; 85610; 87635; 93005; 93307; 96372; 99284; C9803; G0378; A9270; J1650

== ENCOUNTER → 2021-05-21 11:50 | Outpatient (CLI) | payer MEDICARE, OTHER, SELFPAY ==
[2020-10-28 19:39] VITALS: BMI 26.7
== END ==
PROVIDERS: PCP Family Medicine; Referring Provider Family Medicine; Visit Provider Family Medicine
DX: Z78.0 Asymptomatic menopausal state (principal); M85.852 Other specified disorders of bone density and structure, left thigh
CPT/HCPCS: 77080

== ENCOUNTER 2021-07-30 15:04 | Observation (INO) | payer MEDICARE, SELFPAY ==
[2020-10-28 19:39] VITALS: BMI 26.7
[2021-07-30] VITALS (17 sets, daily range): BP systolic 120–150; BP diastolic 68–81; PULSE 90–137; RESP 12–36; TEMP 36.6–36.9; O2SAT 94–99; BMI 25.7
[2021-07-30 15:33] LABS: Add Manual Diff / Slide Review NO; Basophils Absolute Auto 100 /uL (0-100); Basophils Percent Auto 0.5 % (0-2); Eosinophils Absolute Auto 0 /uL (0-450); Eosinophils Percent Auto 0.2 % (2-4); Hematocrit 45.7 % (36-46); Hemoglobin 15.2 g/dL (12.0-16.0); Lymphocytes Absolute Auto 1600 /uL (1100-4500); Lymphocytes Percent Auto 11.4 % (25-40); Mean Corpuscular HGB Conc 33.2 % (30-36); Mean Corpuscular Hemoglobin 30.3 PG (26-34); Mean Corpuscular Volume 91.1 fL (80-100); Monocytes Absolute Auto 800 /uL (0-900); Monocytes Percent Auto 5.5 % (3-14); Neutrophils Absolute Auto 11800 /uL (1500-7000); Neutrophils Percent Auto 82.4 % (50-75); Platelet Count 327 X10^3/uL (150-400); Red Blood Cell Count 5.01 X10^6/uL (4.0-5.2); Red Cell Distribution Width 13.5 % (11.6-14.8); White Blood Cell Count 14.3 X10^3/uL (4.5-11.0)
[2021-07-30] MEDS: SODIUM CHLORIDE 0.9% 1,000 ML 1000 ML IV (15:46)
[2021-07-30] MEDS: ONDANSETRON 4 MG/2 ML INJ IV (15:47)
[2021-07-30 15:50] LABS: Alanine Aminotransferase 22 IU/L (<35); Albumin 5.1 g/dL (3.5-5.0); Albumin Globulin Ratio 1.3 (1.0-2.8); Alkaline Phosphatase 86 U/L (38-126); Aspartate Aminotransferase 40 IU/L (14-36); BUN Creatinine Ratio 19.4 (6-22); Bilirubin Total 0.7 mg/dL (0.2-1.3); Blood Urea Nitrogen 18 mg/dL (7-17); Calcium 10.2 mg/dL (8.4-10.2); Carbon Dioxide 28 mmol/L (22-32); Chloride 108 mmol/L (98-107); Estimated Glomerular Filt Rate 59.8 mL/min (>60); Globulin 3.8 g/dL (1.7-4.1); Glucose 140 mg/dL (80-110); HEMOLYSIS < 15 (0-50); Lipase 60 U/L (23-300); Potassium 3.9 mmol/L (3.4-5.1); Sodium 147 mmol/L (137-145); Total Protein 8.9 g/dL (6.3-8.2)
--- NOTE | 2021-07-30 16:12 | ED.NAVMDI ---
HPI - Nausea/Vomiting/Diarrhea General Chief complaint: Nausea/Vomiting/Diarrhea Stated complaint: THROWING UP DIZZY Time Seen by Provider: 07/30/21 15:25 Mode of arrival: Ambulatory History of Present Illness HPI Narrative: Patient here with daughter. Patient has been vomiting air since 8:00 p.m. last night after eating chicken. She has had this problem in the past with eating chicken and having it stuck in her throat but eventually clears. Has never had EGD or does appear for evaluation of her esophagus. No trouble breathing. It is painful and substernal area. Every time she tries drinking fluids a comes right back up. Related Data Home Medications Medication Instructions Recorded Confirmed sennosides 8.6 mg tablet (senna) 17.2 mg PO HS #0 10/27/17 10/28/20 docusate sodium 100 mg capsule 100 mg PO DAILY 07/17/20 10/28/20 (Colace) trazodone 150 mg tablet 300 mg PO QPM 07/17/20 10/28/20 aspirin 81 mg tablet,delayed 81 mg PO DAILY 10/02/20 10/28/20 release losartan 25 mg tablet 12.5 mg PO QPM 10/28/20 10/28/20 Previous Rx's Medication Instructions Recorded atorvastatin 20 mg tablet (Lipitor) 40 mg PO BEDTIME #30 tab 07/19/20 spironolactone 25 mg tablet 12.5 mg PO DAILY #15 tab 07/19/20 pantoprazole 20 mg tablet,delayed 20 mg PO 0700 #30 tab 07/30/21 release Allergies Allergy/AdvReac Type Severity Reaction Status Date / Time No Known Drug Allergies Allergy Verified 04/03/18 17:34 Review of Systems Review of Systems Narrative: GENERAL: Denies chills, fatigue, malaise, fever, sweats. HEENT: Denies sinus pain, ear pain, sore throat RESPIRATORY: Denies dyspnea, cough CARDIOVASCULAR: Denies chest pain, palpitations GASTROINTESTINAL: Positivenausea, vomiting, denies abdominal pain : Denies dysuria, frequency, hematuria MUSCULOSKELETAL: denies muscle or bony pain SKIN: Denies rash, skin lesions NEUROLOGIC: Denies weakness, numbness ROS Unobtainable: All systems reviewed & are unremarkable except as noted in HPI and below Patient History Medical History CHF (congestive heart failure) History of spinal fracture Migraine Surgical History History of bladder surgery History of History of facial fracture repair Hx of lumbosacral spine surgery Family History Father Diabetes mellitus Stroke Mother Breast cancer Son Stroke Social History household members: family Smoking Status: Never smoker alcohol intake: current Smoking Status: Never smoker alcohol intake frequency: 0-2 drinks per day Substance Use Type: does not use Exam Narrative Exam Narrative: GENERAL: in no distress, not toxic not dyspneic, patient is spitting up clear fluid. Water bottle on her bed HEAD: Normocephalic. EYES: Pupils equal round No scleral icterus. ENT: Mucous membranes moist. NECK: Trachea midline. CARDIOVASCULAR: Regular rate and rhythm without murmurs RESPIRATORY: Clear to auscultation. Breath sounds equal bilaterally. No wheezes, rales, or rhonchi. GASTROINTESTINAL: Abdomen soft, non-tender EXTREMITIES: No gross deformities. NEURO: AOx4. SKIN: Warm and dry PSYCH: Not anxious, is cooperative Initial Vital Signs Initial Vital Signs: Vital Signs Temperature 98.5 F 07/30/21 15:15 Pulse Rate 137 H 07/30/21 15:15 Respiratory Rate 20 07/30/21 15:15 Blood Pressure 140/75 07/30/21 15:15 Pulse Oximetry 97 07/30/21 15:15 Course Course Course Narrative: No new issues during course of stay in the department. Unable to pass the food bolus Orders Ordered: Discontinued Medications Diazepam (Diazepam 10 Mg/2 Ml Syringe) 5 mg IV NOW ONE Stop: 07/30/21 16:43 Last Admin: 07/30/21 16:45 Dose: 5 mg Documented by: MITCH Glucagon (Glucagon,Human Recombinant 1 Mg/Ml Vial) 1 mg IV NOW ONE Stop: 07/30/21 16:12 Last Admin: 07/30/21 16:22 Dose: 1 mg Documented by: MITCH Sodium Chloride (Normal Saline 0.9%) 1,000 mls @ 1,000 mls/hr IV BOLUS ONE Stop: 07/30/21 16:36 Last Infusion: 07/30/21 17:06 Dose: 0 mls/hr Documented by: Admin: 07/30/21 15:46 Dose: 1,000 mls/hr Documented by: DULCE Ondansetron HCl (Ondansetron 4 Mg/2 Ml Inj) 4 mg IV NOW ONE Stop: 07/30/21 15:38 Last Admin: 07/30/21 15:47 Dose: 4 mg Documented by: DULCE Pantoprazole Sodium (Pantoprazole Dr 20 Mg Tablet) 20 mg PO 0700 [facility] Reevaluation(s) Reevaluation #1: Patient has still unable to pass the food bolus after Zofran and glucagon and Valium. Patient awake alert oriented x4. She agrees for EGD Time: 17:56 Consultations Consultation #1: Spoke with surgeon, Dr. Huffman. She will come here to do EGD Time: 17:56 Vital Signs Vital signs: Vital Signs - 8 hr 07/30/21 15:15 07/30/21 16:30 07/30/21 17:00 Temperature 98.5 F Pulse Rate 137 H 106 H 115 H Respiratory Rate 20 22 21 Blood Pressure 140/75 Pulse Oximetry 97 96 94 MDM - Nausea/Vomiting/Diarrhea Differential Diagnosis Differential diagnosis: Likely other (Food impaction) Lab Data Result diagrams: 07/30/21 15:21 07/30/21 15:21 Labs: Lab Results 07/30/21 07/30/21 07/30/21 Range/Units 15:21 15:21 17:58 WBC 14.3 H (4.5-11.0) X10^3/uL RBC 5.01 (4.0-5.2) X10^6/uL Hgb 15.2 (12.0-16.0) g/dL Hct 45.7 (36-46) % MCV 91.1 (80-100) fL MCH 30.3 (26-34) PG MCHC 33.2 (30-36) % RDW 13.5 (11.6-14.8) % Plt Count 327 (150-400) X10^3/uL Neut % (Auto) 82.4 H (50-75) % Lymph % (Auto) 11.4 L (25-40) % [place] % (Auto) 5.5 (3-14) % Eos % (Auto) 0.2 L (2-4) % Baso % (Auto) 0.5 (0-2) % Neut # (Auto) 31315 H (8229-2805) /uL Lymph # (Auto) 1600 (3833-9134) /uL [place] # (Auto) 800 (0-900) /uL Eos # (Auto) 0 (0-450) /uL Baso # (Auto) 100 (0-100) /uL Sodium 147 H (137-145) mmol/L Potassium 3.9 (3.4-5.1) mmol/L Chloride 108 H (98-107) mmol/L Carbon Dioxide 28 (22-32) mmol/L BUN 18 H (7-17) mg/dL Creatinine 0.93 (0.52-1.04) mg/dL Estimated GFR 59.8 L (>60) mL/min BUN/Creatinine Ratio 19.4 (6-22) Glucose 140 H (80-110) mg/dL Calcium 10.2 (8.4-10.2) mg/dL Total Bilirubin 0.7 (0.2-1.3) mg/dL AST 40 H (14-36) IU/L ALT 22 (<35) IU/L Alkaline Phosphatase 86 (38-126) U/L Total Protein 8.9 H (6.3-8.2) g/dL Albumin 5.1 H (3.5-5.0) g/dL Globulin 3.8 (1.7-4.1) g/dL Albumin/Globulin Ratio 1.3 (1.0-2.8) Lipase 60 (23-300) U/L SARS-CoV-2 (PCR) Negative (Negative) ECG Data Interpretation: Normal sinus rhythm rate [address] left axis deviation no ST elevation or depression MDM Narrative Medical decision making narrative: Appropriate for admission for EGD. Unable to pass the food bolus. Discharge Plan Departure Patient Disposition: Admitted as Observation Clinical Impression: Esophageal obstruction due to food impaction Admit Date/Time: 07/30/21 18:06 Admit Provider: Priyanka Huffman
[2021-07-30] MEDS: GLUCAGON,HUMAN RECOMBINANT 1 MG/ML VIAL IV (16:22)
[2021-07-30] MEDS: diazePAM 10 MG/2 ML SYRINGE 5 MG IV (16:45)
--- NOTE | 2021-07-30 18:03 | PM.CN ---
History of Present Illness Consult details Date Patient Seen: 07/30/21 Time Patient Seen: 20:34 Chief complaint: THROWING UP DIZZY Reason for consult: Chicken in esophagus Requesting provider: Donovan Clayton Narrative: Chicken stuck in esophagus since 8 pm last night Unable to manage her own spit. Unresponsive to medical management. She has had these episodes for years associated with certain foods with chicken being one. Normally she throws up and it goes away. She did that yesterday w/o success. No prior EGD. Meds Home Medications and Allergies Home Medications Medication Instructions Recorded Confirmed Type sennosides 8.6 mg tablet (senna) 17.2 mg PO HS #0 10/27/17 10/28/20 History docusate sodium 100 mg capsule 100 mg PO DAILY 07/17/20 10/28/20 History (Colace) trazodone 150 mg tablet 300 mg PO QPM 07/17/20 10/28/20 History atorvastatin 20 mg tablet (Lipitor) 40 mg PO BEDTIME #30 tab 07/19/20 10/28/20 Rx spironolactone 25 mg tablet 12.5 mg PO DAILY #15 tab 07/19/20 10/28/20 Rx aspirin 81 mg tablet,delayed 81 mg PO DAILY 10/02/20 10/28/20 History release losartan 25 mg tablet 12.5 mg PO QPM 10/28/20 10/28/20 History Allergies Allergy/AdvReac Type Severity Reaction Status Date / Time No Known Drug Allergies Allergy Verified 04/03/18 17:34 Review of Systems Review of Systems ROS: Yes All systems reviewed with the patient and are negative except as otherwise documented Exam Vital Signs (past 8 hours): - 07/30/21 15:15 07/30/21 16:30 07/30/21 17:00 Temperature 98.5 F Pulse Rate 137 H 106 H 115 H Respiratory Rate 20 22 21 Blood Pressure 140/75 Pulse Oximetry 97 96 94 Oxygen Delivery Method Nasal Cannula Oxygen Flow Rate 2 Const General: cooperative, in distress and anxious Nutritional Appearance: average body habitus HENMT Head: normocephalic and atraumatic Eyes Sclera: sclerae normal Neck Neck: trachea midline Thyroid: thyroid normal Chest Chest: normal inspection of the chest Resp Effort & Inspection: normal respiratory effort and able to speak in complete sentences Cardio Rate: tachycardic Rhythm: regular rhythm GI Inspection: normal to inspection Palpation: soft Skin General: atrophy Neuro General: patient alert and patient oriented x3 Extrem General: full ROM and no pedal edema Psych Appearance: grossly normal Affect: normal affect Judgment: judgment good Objective Labs Result Diagrams: 07/30/21 15:21 07/30/21 15:21 Labs: Laboratory Results - last 24 hr 07/30/21 07/30/21 15:21 15:21 WBC 14.3 H RBC 5.01 Hgb 15.2 Hct 45.7 MCV 91.1 MCH 30.3 MCHC 33.2 RDW 13.5 Plt Count 327 Neut % (Auto) 82.4 H Lymph % (Auto) 11.4 L [place] % (Auto) 5.5 Eos % (Auto) 0.2 L Baso % (Auto) 0.5 Neut # (Auto) 84247 H Lymph # (Auto) 1600 [place] # (Auto) 800 Eos # (Auto) 0 Baso # (Auto) 100 Sodium 147 H Potassium 3.9 Chloride 108 H Carbon Dioxide 28 BUN 18 H Creatinine 0.93 Estimated GFR 59.8 L BUN/Creatinine Ratio 19.4 Glucose 140 H Calcium 10.2 Total Bilirubin 0.7 AST 40 H ALT 22 Alkaline Phosphatase 86 Total Protein 8.9 H Albumin 5.1 H Globulin 3.8 Albumin/Globulin Ratio 1.3 Lipase 60 PFSH Medical History CHF (congestive heart failure) History of spinal fracture Migraine Surgical History History of bladder surgery History of History of facial fracture repair Hx of lumbosacral spine surgery Family History Father Diabetes mellitus Stroke Mother Breast cancer Son Stroke Social History household members: family Tobacco & Substance Use Smoking Status: Never smoker alcohol intake: current Assessment & Plan Assessment & Plan narrative: Foreign body in esophagus. Multiple prior episodes spanning years OR for diagnostic EGD with possible removal of foreign body using anesthesia COVID-19 COVID-19 status: Negative Time Spent With Patient Time with patient: less than 30 minutes Critical Care time: I spent a total of [] minutes of critical care time on this patient's care today; this time is exclusive of procedural time.
[2021-07-30 18:44] LABS: COVID19 -Nasal RAPID Negative (Negative)
--- NOTE | 2021-07-30 20:19 | PC.NURSE ---
Report given to JOAO Monet in the OR.
--- NOTE | 2021-07-30 21:02 | PM.OP.ENDO ---
Operative Date/Time/Diagnoses Date of procedure: 07/30/21 Time of procedure: 21:02 Pre-op diagnosis: dysphagia, likely foreign body in esophagus Post-op diagnosis: same Procedure & Clinicians Study performed: EGD w anesthesia Same procedure as scheduled: Yes Indications: foreign body in esophagus Surgeon: Priyanka Huffman Procedure Notes SCOAP/Timeout: done Procedure in detail: Prep diagnosis: Foreign body in the esophagus Postop diagnosis: Same Operative Procedure: EGD with removal foreign body Anesthetic: Mac Surgeon: Vicky Huffman MD Findings: Meat in the distal esophagus with probable distal esophageal stricture, hiatal hernia Procedure: Patient placed in a supine position. Anesthetic was administered. Scope inserted into the esophagus advanced to the stomach after having visualized the meat/foreign body in the lower esophagus. The scope was able to push the meat through into the stomach was again visualized. Extraction of the scope showed irritation and some bleeding at the area where the meat was lodged. Suggestion of a distal esophageal stricture. And hiatal hernia. Impression: Foreign body esophagus related to benign esophageal stricture distally, secondary to chronic reflux Plan: Follow-up 1-2 weeks with surgeons for elective repeat EGD, dilation. And discussion for H2 samson versus proton pump inhibitor. Findings: hiatal hernia and stricture Specimen(s): none sent Complications: none Impression: esophageal stricture with meat stuck Post-procedure Plan for aftercare: PPI and repeat EGD with dilation, Dr. Yang Follow up: weeks Disposition: PACU
== END 2021-07-30 22:05 | disposition home or self-care (01) ==
LOC: ED 17:59 → AC 18:07
PROVIDERS: Admitting Provider Surgery; Emergency Provider Emergency Medicine; PCP Family Medicine; Referring Provider Emergency Medicine; Visit Provider Surgery
PROC: 0DJ08ZZ Inspection of Upper Intestinal Tract, Via Natural or Artificial Opening Endoscopic (ICD-10-PCS; CPT 43235; principal; 2021-07-30 20:00)
DX: T17.228A Food in pharynx causing other injury, initial encounter (principal); R42 Dizziness and giddiness; I50.9 Heart failure, unspecified; G43.909 Migraine, unspecified, not intractable, without status migrainosus; Z20.822 Contact with and (suspected) exposure to COVID-19; K22.2 Esophageal obstruction; K44.9 Diaphragmatic hernia without obstruction or gangrene
CPT/HCPCS: 43247; 36415; 80053; 81003; 83690; 85025; 87635; 93005; 93010; 96361; 96374; 96375; 99219; 99284; 99285; C9803; G0378; J1610; J2405; J2704; J3360

== ENCOUNTER → 2021-08-22 13:09 | Outpatient (CLI) | payer MEDICARE, SELFPAY ==
[2020-10-28 19:39] VITALS: BMI 26.7
[2021-08-22 14:01] LABS: Add Manual Diff / Slide Review NO; Basophils Absolute Auto 100 /uL (0-100); Basophils Percent Auto 0.8 % (0-2); Eosinophils Absolute Auto 200 /uL (0-450); Eosinophils Percent Auto 3.5 % (2-4); Hematocrit 38.2 % (36-46); Lymphocytes Absolute Auto 1900 /uL (1100-4500); Mean Corpuscular HGB Conc 33.9 % (30-36); Mean Corpuscular Hemoglobin 30.6 PG (26-34); Mean Corpuscular Volume 90.3 fL (80-100); Monocytes Absolute Auto 400 /uL (0-900); Monocytes Percent Auto 6.4 % (3-14); Neutrophils Absolute Auto 4100 /uL (1500-7000); Neutrophils Percent Auto 61.3 % (50-75); Platelet Count 272 X10^3/uL (150-400); Red Blood Cell Count 4.23 X10^6/uL (4.0-5.2); Red Cell Distribution Width 12.9 % (11.6-14.8); White Blood Cell Count 6.7 X10^3/uL (4.5-11.0)
[2021-08-22 14:21] LABS: BUN Creatinine Ratio 17.1 (6-22); Blood Urea Nitrogen 13 mg/dL (7-17); Calcium 9.7 mg/dL (8.4-10.2); Carbon Dioxide 30 mmol/L (22-32); Chloride 102 mmol/L (98-107); Cholesterol 163 mg/dL (140-199); Estimated Glomerular Filt Rate > 60.0 mL/min (>60); Glucose 92 mg/dL (80-110); HDL Cholesterol 60 mg/dL (40-60); HEMOLYSIS < 15 (0-50); LDL Cholesterol Calculated 72 mg/dL (<100); Potassium 4.2 mmol/L (3.4-5.1); Sodium 138 mmol/L (137-145); Triglycerides 155 mg/dL (35-150)
== END ==
PROVIDERS: PCP Family Medicine; Referring Provider Internal Medicine Cardiovascular Disease; Visit Provider Internal Medicine Cardiovascular Disease
DX: E78.5 Hyperlipidemia, unspecified (principal); I50.22 Chronic systolic (congestive) heart failure
CPT/HCPCS: 36415; 80048; 80061; 85025

== ENCOUNTER → 2021-09-03 12:52 | Outpatient (CLI) | payer MEDICARE, SELFPAY ==
[2020-10-28 19:39] VITALS: BMI 26.7
--- NOTE | 2021-09-03 | DI.ECHO.S_ITS ---
[facility] +---------+ : : [address] : [address] : : : : [id number] : : : : Phone: [phone]---------+ Echocardiogram Report + + :Name: ALEC BANG Study Date: 09/03/2021 Height: 61 in : :[facility] ReadingLocation: Weight: 145 lb : : Gender: Female BSA: 1.6 m2 : :: 1950 Age: 71 yrs BP: 114/84 mmHg: :Reason For Study: SYSTOLIC HEART FAILURE : :Ordering Physician: JARET, : :REBEKA Performed By: Norma Harrell : :Referring: REBEKA CORREIA : + + Interpretation Summary 1) Normal left ventricular size and thickness with moderately reduced systolic function (EF 35-40%). 2) Normal right ventricular size and function. 3) Mild mitral regurgitation present. 4) sinus rhythm with heart rates between 57-70 bpm during the exam. 5) Compared to the Echo done 10/29/2020, LVEF has dropped slightly from 40-45% to 35-40% on this study. Procedure: A two-dimensional transthoracic echocardiogram with color flow and Doppler was performed. The study quality was technically adequate. Comparison is made with the echocardiogram of 10/29/2020. The patient was in sinus rhythm with heart rates between 57-70 bpm during the exam. Left Ventricle: The left ventricle is normal in size and wall thickness. The ejection fraction is estimated to be 35-40%. There is moderate global hypokinesis of the left ventricle. Right Ventricle: The right ventricle is normal in size and function. Atria: The left atrial size is normal. Right atrial size is normal. There is no Doppler evidence for an interatrial shunt. Mitral Valve: The mitral valve is normal in structure and function. There is mild mitral regurgitation. Aortic Valve: The aortic valve is trileaflet. The aortic valve opens well. There is no aortic valve stenosis. There is trace aortic regurgitation. Tricuspid Valve: The tricuspid valve is normal in structure and function. There is trace tricuspid regurgitation. Pulmonary artery pressures cannot be estimated because of the lack of a measurable TR jet velocity but the IVC suggests a CVP of around 3 mmHg. Pulmonic Valve: The pulmonic valve is not well visualized. There is trace pulmonic regurgitation. Great Vessels: The aortic root is normal size. The dimensions of the ascending aorta are normal. The IVC is of normal diameter and collapses greater than 50% with a sniff. This suggests a low right atrial pressure of 3 mm Hg. Pericardium/ Pleura There is no pericardial effusion. There is no pleural effusion. MMode/2D Measurements & Calculations LVIDd: 5.1 cm LVOT diam: 2.2 cm LVIDs: 4.2 cm Ao root diam: 2.6 cm FS: 17.0 % asc Aorta Diam: 3.2 cm IVSd: 0.76 cm Ao Arch Diam (Prox Trans): 2.5 cm LVPWd: 0.80 cm LV alvarado. diameter/BSA (cm/m^2): 3.1 LV sys. diameter/BSA (cm/m^2): 2.6 LA A2 area: 19.9 cm2 RA long axis: 4.8 cm LA A4 area: 16.6 cm2 RA area: 14.1 cm2 LA length (vol): 5.2 cm RA vol: 35.5 ml LA vol: 54.4 ml RA : 21.5 ml/m2 LA vol index: 33.0 ml/m2 IVC diam: 1.6 cm RVD1 (basal): 3.1 cm TAPSE: 2.1 cm Doppler Measurements & Calculations Ao V2 max: 121.8 cm/sec LVOT Max Giovanni: 61.7 cm/sec Ao V2 mean: 80.8 cm/sec LV V1 max P.5 mmHg Ao max P.9 mmHg LV V1 VTI: 13.6 cm Ao mean P.9 mmHg KAN(I,D): 1.9 cm2 Ao V2 VTI: 26.1 cm KAN(V,D): 1.9 cm2 sev ratio: 0.52 KAN indexed to BSA (cm^2/m^2): 1.2 MV E max giovanni: 69.2 cm/sec PA V2 max: 102.5 cm/sec MV A max giovanni: 100.5 cm/sec PA V2 mean: 61.9 cm/sec MV E/A: 0.69 PA mean P.9 mmHg Med Peak E' Giovanni: 4.4 cm/sec PA pr(Accel): 24.2 mmHg E/E' med: 15.7 Lat Peak E' Giovanni: 6.6 cm/sec E/E' lat: 10.6 E/e' average: 13.1 MV dec time: 0.21 sec SVLVOT): 50.6 ml Reading Physician:11:52 AM
== END ==
PROVIDERS: PCP Family Medicine; Referring Provider Internal Medicine Cardiovascular Disease; Visit Provider Internal Medicine Cardiovascular Disease
DX: I50.22 Chronic systolic (congestive) heart failure (principal); I34.0 Nonrheumatic mitral (valve) insufficiency
CPT/HCPCS: 93306

== ENCOUNTER 2022-01-26 19:29 | Observation (INO) | payer MEDICARE, SELFPAY ==
[2020-10-28 19:39] VITALS: BMI 26.7
[2022-01-26] VITALS (9 sets, daily range): BP systolic 139–162; BP diastolic 85–106; PULSE 88–102; RESP 12–32; TEMP 36.2–36.6; O2SAT 92–97; BMI 25.6
--- NOTE | 2022-01-26 19:30 | PC.NURSE ---
pt lost time this after noon does not remember coming home from [facility], daughter states she is speaking normal but when she was on the phone it seemed like she was missing some words, twitching noted to mouth daughter states the twitching is usually not as focused on the mouth
--- NOTE | 2022-01-26 19:40 | DI.CT.S_ITS ---
PROCEDURE: CT STROKE INDICATIONS: code stroke TECHNIQUE: Noncontrast 4.5 mm thick angled axial sections acquired from the foramen magnum to the vertex, with coronal reformats. For radiation dose reduction, the following was used: automated exposure control, adjustment of mA and/or kV according to patient size. COMPARISON: None. FINDINGS: Image quality: Excellent. CSF spaces: Basal cisterns are patent. No extra-axial fluid collections. The ventricles are symmetric in size and shape. Brain: No intracranial bleeds or masses. There is cerebral volume loss for age, with resultant ventricular and sulcal prominence. There are periventricular and deep white matter chronic small vessel ischemic changes. There is intracranial internal carotid artery atherosclerosis. Skull and face: Calvarium and visualized facial bones appear intact, without suspicious lesions. Sinuses: Visualized sinuses and mastoids are clear. IMPRESSION: No acute intracranial disease process. Findings discussed with Dr. Barboza on January 26, 2022 at 7:53 p.m. This study fulfills neurological imaging criteria for inclusion or exclusion of acute stroke therapies based on available published neurological guidelines. Dictated by: Coty Salomon MD, PhD on 01/26/2022 at 19:51 Approved by: Coty Salomon MD, PhD on 01/26/2022 at 19:55
--- NOTE | 2022-01-26 19:42 | DI.CT.S_ITS ---
PROCEDURE: CT ANGIO HEAD AND NECK INDICATIONS: code stroke. Facial droop and confusion. TECHNIQUE: After the administration of intravenous contrast, 1 mm thick sections acquired from the aortic arch through the [place]. Post-contrast 4.5 mm thick sections then re-acquired from the foramen magnum to the vertex. 3-dimensional venxyaj-tvxyojatx-rsobxeqbix (MIP) and/or volume rendering reformats were acquired of the central intracranial vasculature and neck separately. For radiation dose reduction, the following was used: automated exposure control, adjustment of mA and/or kV according to patient size. COMPARISON: [facility], CT, CT STROKE, 01/26/2022, 19:46. FINDINGS: Image quality: There is metallic streak artifact from patient's dental hardware limiting evaluation. BRAIN: CSF spaces: Basal cisterns are patent. No extra-axial fluid collections. Ventricles are normal in size and shape. Brain: No intracranial hematoma collection, mass, or mass effect. [place]bar[place]-white matter interface appears preserved. No abnormal intracranial enhancement Skull and face: Calvarium and facial bones appear intact, without suspicious lesions. Orbits appear normal. Sinuses: Sinuses and mastoids are clear. HEAD CT ANGIOGRAPHY: Anterior circulation: Intracranial internal carotid arteries are normal in size and appear patent bilaterally. There is mild atherosclerotic calcification along the cavernous segments of the internal carotid arteries. The paired anterior cerebral arteries appear patent bilaterally. The anterior communicating artery also appears patent. The middle cerebral arteries appear patent bilaterally. No high-grade stenosis, occlusion, or filling defects. No cerebral aneurysms identified. Posterior circulation: Visualized portions of the vertebral arteries demonstrate normal caliber, and join to form a patent basilar artery. The posterior cerebral arteries appear patent bilaterally. There is persistent circulation on the left, with the left posterior cerebral artery supplied by a posterior communicating artery. No high-grade stenosis, occlusion, or filling defects. No cerebral aneurysms identified. NECK CT ANGIOGRAPHY: Carotid system: The great vessels demonstrate a conventional anatomy as they arise from the aortic arch. The origins of the common carotid arteries appear patent. The common carotid arteries demonstrate normal caliber and courses. There is atherosclerotic calcified plaque in the distal right common carotid artery and carotid bulb with narrowing of up to approximately 50% in the carotid bulb. On the left, there is minimal calcified plaque in the carotid bulb with minimal narrowing of less than 25%. The internal carotid arteries demonstrate normal calibers and courses. Posterior circulation: The origins of the vertebral arteries both appear patent. The more superior extracranial portions of both vertebral arteries also demonstrate normal courses and calibers. They join to form a patent basilar artery. Soft tissues: Visualized neck soft tissues demonstrate a few hypoattenuating nodules in the right thyroid lobe with the largest measuring up to approximately 1 cm. Bones: No suspicious bony lesions. Visualized cervical spine demonstrates preserved alignment. IMPRESSION: 1. No high-grade stenosis or occlusion of the central intracranial arteries. 2. Focal narrowing in the proximal right carotid bulb of up to approximately 50%. Any quantitative measurements of stenosis were performed using NASCET criteria. Dictated by: Bubba Chaves M.D. on 01/26/2022 at 20:18 Approved by: Bubba Chaves M.D. on 01/26/2022 at 20:26
--- NOTE | 2022-01-26 19:44 | ED_ITS ---
HPI - General Adult General Chief complaint: Neuro Symptoms/Deficit Stated complaint: Lost time, Droopy smile, confused Time Seen by Provider: 01/26/22 19:33 Source: patient and family Mode of arrival: Ambulatory Limitations: no limitations History of Present Illness HPI narrative: Patient is a 71-year-old female. No prior history of CVA. Was at [facility] this afternoon. [facility] was over at 1530. She drove home afterwards. She thinks she arrived home at approximately 1545. Sometime around this time she states that she can not remember exactly what happened. She does remember coming home but his fuzzy on some other details. She contacted her daughter at 16 15 her daughter who is at bedside states that this time she thought that the patient was acting normal. The patient called back at approximately 1715. At this point the daughter states that the patient seemed confused and potentially was slurring some words. She came over to evaluate the patient and noticed that she was drooping on the right side of her face and seem to be uncoordinated with moving her arms and legs. Upon arrival here to the emergency department the patient does admit that she was somewhat confused. She has no chest pain. No shortness of breath. No headache. No vision changes. No abdominal pain. No skin rashes. She has taken an aspirin already today as part of her normal medication regimen. Related Data Home Medications Medication Instructions Recorded Confirmed sennosides 8.6 mg tablet (senna) 17.2 mg PO ##0 10/27/17 01/26/22 docusate sodium 100 mg capsule 100 mg PO DAILY 07/17/20 01/26/22 (Colace) trazodone 150 mg tablet 300 mg PO QPM 07/17/20 01/26/22 aspirin 81 mg tablet,delayed 81 mg PO DAILY 10/02/20 01/26/22 release losartan 25 mg tablet 12.5 mg PO QPM 10/28/20 01/26/22 albuterol sulfate 90 mcg/actuation 2 puff inhalation PRN PRN 01/26/22 01/26/22 aerosol inhaler Shortness Of Breath cyclobenzaprine 10 mg tablet 10 mg PO PC 01/26/22 01/26/22 furosemide 20 mg tablet 20 mg PO PRN PRN Weight Gain 01/26/22 01/26/22 hydrocodone 5 mg-acetaminophen 325 1 tab PO PRN PRN Pain (Scale Score 01/26/22 01/26/22 mg tablet 1-3) metoprolol succinate 100 mg 50 mg PO BID 01/26/22 01/26/22 tablet,extended release 24 hr Previous Rx's Medication Instructions Recorded atorvastatin 20 mg tablet (Lipitor) 40 mg PO BEDTIME #30 tabs 07/19/20 spironolactone 25 mg tablet 12.5 mg PO DAILY #15 tabs 07/19/20 pantoprazole 20 mg tablet,delayed 20 mg PO 0700 #30 tabs 07/30/21 release Allergies Allergy/AdvReac Type Severity Reaction Status Date / Time No Known Drug Allergies Allergy Verified 04/03/18 17:34 Review of Systems Review of Systems ROS Unobtainable: All systems reviewed & are unremarkable except as noted in HPI and below Patient History Medical History History of spinal fracture Migraine Sjogren's disease Systolic CHF with reduced left ventricular function, NYHA class 3 Surgical History History of bladder surgery History of History of facial fracture repair Hx of lumbosacral spine surgery Family History (Updated 01/26/22 @ 23:48 by RAPHAEL Lloyd) Father Diabetes mellitus Stroke AAA (abdominal aortic aneurysm) Myocardial infarction Mother Breast cancer AAA (abdominal aortic aneurysm) Son Stroke Cerebral aneurysm Social History household members: family Smoking Status: Never smoker alcohol intake: never Smoking Status: Never smoker alcohol intake frequency: 0-2 drinks per day Substance Use Type: does not use Exam Initial Vital Signs Initial Vital Signs: Vital Signs Blood Pressure 154/106 H 01/26/22 19:36 Const General: cooperative and comfortable HENMT Head: normal to inspection and normocephalic Face and sinus: normal facial exam Mouth: oral mucosae normal Eyes EOM: EOM intact bilaterally Resp Effort & Inspection: normal respiratory effort Auscultation: clear to auscultation bilaterally Cardio Rate: regular rate Rhythm: regular rhythm GI Inspection: normal to inspection Palpation: soft Skin General: no rashes or lesions noted Neuro General: patient alert, patient awake, patient oriented x3, moves all extremities and not confused Cognition: normal cognition Speech: speech normal Extrem General: normal to inspection and capillary refill normal Psych Appearance: grossly normal and well kempt Scores GCS [place] coma scale eye opening: Spontaneous [place] coma scale verbal response: Orientated [place] coma scale motor response: Obey commands [place] coma scale total score: 15 NIH Stroke Scale Level of Conciousness: Alert, keenly responsive Ask month/age: Answers both questions correctly. Open/close eyes, close hand: Performs both tasks correctly Best gaze horizontal: Normal Visual figueroa: No visual loss Facial palsy: Minor paralysis, flattened nasolabial fold, asymmetry on smiling Left arm drift: No drift for full 10 sec Right arm drift: No drift for full 10 sec Left leg drift: No drift for full 5 sec Right leg drift: No drift for full 5 sec Limb ataxia: Present in two limbs Sensory on face/arms/legs: Mild to moderate sensory loss, can tell touch Best language: No aphasia, normal Dysarthria: Normal Extinction or inattention: No abnormality Total NIH Stroke scale score: 4 Course Orders Ordered: ED Orders 01/26/22 19:40 CT Stroke Stat Complete Blood Count AUTO DIFF Stat Comprehensive Metabolic Panel Stat Ethanol (ETOH) Stat Lipase Stat Magnesium Stat Partial Thromboplastin Time Stat Prothrombin Time INR Stat Troponin & CK Cardiac Panel Stat 01/26/22 19:42 CT angio head and neck Stat EKG-12 Lead Stat 01/26/22 21:20 COVID19 -Nasal RAPID/Pre-Proc Stat Acetaminophen (Acetaminophen 325 Mg Tablet) 650 mg PO Q6HR PRN PRN Reason: Fever/Mild Pain (1-3) Hydrocodone Bitart/Acetaminophen (Hydrocodone/Acet 5/325 Tablet) 1 tab PO Q4H PRN PRN Reason: Pain, Moderate (4-6) Last Admin: 01/27/22 01:10 Dose: 1 tab Documented By: MS Aspirin (Aspirin Ec 81 Mg Tablet) 81 mg PO DAILY [facility] Atorvastatin Calcium (Atorvastatin 20 Mg Tablet) 80 mg PO BEDTIME [facility] Clopidogrel Bisulfate (Clopidogrel 75 Mg Tablet) 75 mg PO DAILY [facility] Docusate Sodium (Docusate 100 Mg Capsule) 100 mg PO DAILY [facility] Enoxaparin Sodium (Enoxaparin 40 Mg/0.4 Ml Syringe) 40 mg SUBCUT DAILY [facility] Losartan Potassium (Losartan 25 Mg Tablet) 12.5 mg PO QPM [facility] Last Admin: 01/27/22 01:09 Dose: 12.5 mg Documented By: Metoprolol Succinate (Metoprolol Er 50 Mg Tablet) 50 mg PO BID [facility] Last Admin: 01/27/22 01:09 Dose: 50 mg Documented By: Ondansetron HCl (Ondansetron 4 Mg/2 Ml Inj) 4 mg IV Q6HR PRN PRN Reason: Nausea And Vomiting Pantoprazole Sodium (Pantoprazole Dr 20 Mg Tablet) 20 mg PO 0700 [facility] Sennosides (Sennosides 8.6 Mg Tablet) 17.2 mg PO BEDTIME [facility] Last Admin: 01/27/22 01:10 Dose: 17.2 mg Documented By: Sodium Chloride (Sodium Chloride 0.9% Flush) 10 ml IV BID [facility] Last Admin: 01/27/22 01:45 Dose: 10 ml Documented By: Trazodone HCl (Trazodone 50 Mg Tablet) 300 mg PO BEDTIME [facility] Discontinued Medications Aspirin (Aspirin 81 Mg Chew Tab) 324 mg PO NOW ONE Stop: 01/26/22 20:28 Last Admin: 01/26/22 20:38 Dose: 243 mg Documented By: JUDIE Clopidogrel Bisulfate (Clopidogrel 75 Mg Tablet) 300 mg PO NOW ONE Stop: 01/26/22 20:28 Last Admin: 01/26/22 20:35 Dose: 300 mg Documented By: JUDIE Cyclobenzaprine HCl (Cyclobenzaprine 10 Mg Tablet) 10 mg PO NOW ONE Stop: 01/27/22 01:25 Last Admin: 01/27/22 01:45 Dose: 10 mg Documented By: Docusate Sodium (Docusate 100 Mg Capsule) 200 mg PO NOW ONE Stop: 01/27/22 01:24 Last Admin: 01/27/22 01:45 Dose: 200 mg Documented By: Sodium Chloride (Normal Saline 0.9%) 1,000 mls @ 1,000 mls/hr IV BOLUS ONE Stop: 01/26/22 20:39 Last Infusion: 01/26/22 21:23 Dose: 0 mls/hr Documented By: Admin: 01/26/22 20:23 Dose: 1,000 mls/hr Documented By: JUDIE Trazodone HCl (Trazodone 50 Mg Tablet) 100 mg PO BEDTIME [facility] Last Admin: 01/27/22 01:17 Dose: 100 mg Documented By: Trazodone HCl (Trazodone 50 Mg Tablet) 300 mg PO BEDTIME JUDIE Last Admin: 01/27/22 03:08 Dose: Not Given Documented By: Trazodone HCl (Trazodone 100 Mg Tablet) 200 mg PO NOW ONE Stop: 01/27/22 01:46 Last Admin: 01/27/22 01:46 Dose: 200 mg Documented By: Vital Signs Vital signs: Vital Signs - 8 hr 01/26/22 19:36 01/26/22 19:44 01/26/22 19:45 Temperature 98 F Pulse Rate Respiratory Rate Blood Pressure 154/106 H 154/106 H Pulse Oximetry 01/26/22 20:00 01/26/22 20:13 01/26/22 20:13 Temperature Pulse Rate 100 H 102 H Respiratory Rate 22 23 Blood Pressure 162/87 H Pulse Oximetry 92 92 01/26/22 20:30 01/26/22 21:00 Temperature Pulse Rate 90 92 H Respiratory Rate 12 22 Blood Pressure Pulse Oximetry 96 95 Medical Decision Making Lab Data Lab results reviewed: Yes I reviewed the patient's lab results. Result diagrams: 01/26/22 19:40 01/26/22 19:40 Labs: Lab Results 01/26/22 01/26/22 01/26/22 Range/Units 19:40 19:40 19:40 WBC 7.9 (4.5-11.0) X10^3/uL RBC 4.37 (4.0-5.2) X10^6/uL Hgb 13.6 (12.0-16.0) g/dL Hct 40.4 (36-46) % MCV 92.5 (80-100) fL MCH 31.1 (26-34) PG MCHC 33.6 (30-36) % RDW 14.3 (11.6-14.8) % Plt Count 260 (150-400) X10^3/uL Neut % (Auto) 62.6 (50-75) % Lymph % (Auto) 26.3 (25-40) % [place] % (Auto) 8.9 (3-14) % Eos % (Auto) 1.2 L (2-4) % Baso % (Auto) 1.0 (0-2) % Neut # (Auto) 5000 (6514-9536) /uL Lymph # (Auto) 2100 (1204-7501) /uL [place] # (Auto) 700 (0-900) /uL Eos # (Auto) 100 (0-450) /uL Baso # (Auto) 100 (0-100) /uL PT 11.9 (10.1-12.7) SECONDS INR 1.1 (0.9-1.3) APTT 34 (26.4-36.2) SECONDS Sodium 138 (137-145) mmol/L Potassium 3.7 (3.4-5.1) mmol/L Chloride 100 (98-107) mmol/L Carbon Dioxide 28 (22-32) mmol/L BUN 15 (7-17) mg/dL Creatinine 0.74 (0.52-1.04) mg/dL Estimated GFR > 60 (>60) mL/min BUN/Creatinine Ratio 20.3 (6-22) Glucose 133 H (80-110) mg/dL Hemoglobin A1c (4.0-6.0) % Calcium 8.7 (8.4-10.2) mg/dL Magnesium 2.0 (1.6-2.3) mg/dL Total Bilirubin 0.5 (0.2-1.3) mg/dL AST 34 (14-36) IU/L ALT 20 (<35) IU/L Alkaline Phosphatase 64 (38-126) U/L Total Creatine Kinase (30-135) U/L CK-MB (CK-2) (<2.37) ng/mL CK-MB (CK-2) Rel Index (1.5-5.0) % Troponin I (0.01-0.034) ng/mL Total Protein 7.4 (6.3-8.2) g/dL Albumin 4.6 (3.5-5.0) g/dL Globulin 2.8 (1.7-4.1) g/dL Albumin/Globulin Ratio 1.6 (1.0-2.8) Lipase 71 (23-300) U/L TSH (0.47-4.68) uIU/mL Ethyl Alcohol < 10 ( - 10) mg/dL SARS-CoV-2 (PCR) (Negative) 01/26/22 01/26/22 01/26/22 Range/Units 19:40 19:40 19:40 WBC (4.5-11.0) X10^3/uL RBC (4.0-5.2) X10^6/uL Hgb (12.0-16.0) g/dL Hct (36-46) % MCV (80-100) fL MCH (26-34) PG MCHC (30-36) % RDW (11.6-14.8) % Plt Count (150-400) X10^3/uL Neut % (Auto) (50-75) % Lymph % (Auto) (25-40) % [place] % (Auto) (3-14) % Eos % (Auto) (2-4) % Baso % (Auto) (0-2) % Neut # (Auto) (3333-1614) /uL Lymph # (Auto) (9705-2370) /uL Haakon # (Auto) (0-900) /uL Eos # (Auto) (0-450) /uL Baso # (Auto) (0-100) /uL PT (10.1-12.7) SECONDS INR (0.9-1.3) APTT (26.4-36.2) SECONDS Sodium (137-145) mmol/L Potassium (3.4-5.1) mmol/L Chloride (98-107) mmol/L Carbon Dioxide (22-32) mmol/L BUN (7-17) mg/dL Creatinine (0.52-1.04) mg/dL Estimated GFR (>60) mL/min BUN/Creatinine Ratio (6-22) Glucose (80-110) mg/dL Hemoglobin A1c 5.9 (4.0-6.0) % Calcium (8.4-10.2) mg/dL Magnesium (1.6-2.3) mg/dL Total Bilirubin (0.2-1.3) mg/dL AST (14-36) IU/L ALT (<35) IU/L Alkaline Phosphatase (38-126) U/L Total Creatine Kinase 109 (30-135) U/L CK-MB (CK-2) 1.90 (<2.37) ng/mL CK-MB (CK-2) Rel Index 1.7 (1.5-5.0) % Troponin I < 0.012 (0.01-0.034) ng/mL Total Protein (6.3-8.2) g/dL Albumin (3.5-5.0) g/dL Globulin (1.7-4.1) g/dL Albumin/Globulin Ratio (1.0-2.8) Lipase (23-300) U/L TSH 1.11 (0.47-4.68) uIU/mL Ethyl Alcohol ( - 10) mg/dL SARS-CoV-2 (PCR) (Negative) 01/26/22 Range/Units 21:20 WBC (4.5-11.0) X10^3/uL RBC (4.0-5.2) X10^6/uL Hgb (12.0-16.0) g/dL Hct (36-46) % MCV (80-100) fL MCH (26-34) PG MCHC (30-36) % RDW (11.6-14.8) % Plt Count (150-400) X10^3/uL Neut % (Auto) (50-75) % Lymph % (Auto) (25-40) % [place] % (Auto) (3-14) % Eos % (Auto) (2-4) % Baso % (Auto) (0-2) % Neut # (Auto) (4668-9604) /uL Lymph # (Auto) (8639-3749) /uL [place]on # (Auto) (0-900) /uL Eos # (Auto) (0-450) /uL Baso # (Auto) (0-100) /uL PT (10.1-12.7) SECONDS INR (0.9-1.3) APTT (26.4-36.2) SECONDS Sodium (137-145) mmol/L Potassium (3.4-5.1) mmol/L Chloride (98-107) mmol/L Carbon Dioxide (22-32) mmol/L BUN (7-17) mg/dL Creatinine (0.52-1.04) mg/dL Estimated GFR (>60) mL/min BUN/Creatinine Ratio (6-22) Glucose (80-110) mg/dL Hemoglobin A1c (4.0-6.0) % Calcium (8.4-10.2) mg/dL Magnesium (1.6-2.3) mg/dL Total Bilirubin (0.2-1.3) mg/dL AST (14-36) IU/L ALT (<35) IU/L Alkaline Phosphatase (38-126) U/L Total Creatine Kinase (30-135) U/L CK-MB (CK-2) (<2.37) ng/mL CK-MB (CK-2) Rel Index (1.5-5.0) % Troponin I (0.01-0.034) ng/mL Total Protein (6.3-8.2) g/dL Albumin (3.5-5.0) g/dL Globulin (1.7-4.1) g/dL Albumin/Globulin Ratio (1.0-2.8) Lipase (23-300) U/L TSH (0.47-4.68) uIU/mL Ethyl Alcohol ( - 10) mg/dL SARS-CoV-2 (PCR) Negative (Negative) Point of Care Testing Glucose POC 154 Urine Dip Bedside Urine Glucose Negative Bedside Urine Bilirubin - Negative Bedside Urine Ketone - Negative Urine Specific [place] 1.010 Bedside Urine pH 7.0 Bedside Urine Protein - Negative Bedside Urine Urobilinogen - Negative Bedside Urine Nitrite - Negative Point of care testing: Point of Care Testing Glucose POC 154 Urine Dip Bedside Urine Glucose Negative Bedside Urine Bilirubin - Negative Bedside Urine Ketone - Negative Urine Specific [place] 1.010 Bedside Urine pH 7.0 Bedside Urine Protein - Negative Bedside Urine Urobilinogen - Negative Bedside Urine Nitrite - Negative Imaging Data CT scan - head: Radiologist's Impression: [place] [address] CT Scan Report Signed Patient: Ava Lynn MR#: [id number] : 1950 Acct:[id number] Age/Sex: 71 / F Date of Service: 01/26/22 Loc: ED Accession Number: [id number] ?? Procedure: CT Stroke Ordering Provider: Jose López D.O. PROCEDURE:? CT STROKE ? INDICATIONS:? code stroke ? TECHNIQUE:? Noncontrast 4.5 mm thick angled axial sections acquired from the foramen magnum to the vertex, with coronal reformats.? For radiation dose reduction, the following was used:? automated exposure control, adjustment of mA and/or kV according to patient size.? ? COMPARISON:? None. ? FINDINGS:? Image quality:? Excellent.? ? CSF spaces:? Basal cisterns are patent.? No extra-axial fluid collections.? The ventricles are symmetric in size and shape.? ? Brain:? No intracranial bleeds or masses.? There is cerebral volume loss for age, with resultant ventricular and sulcal prominence.? There are periventricular and deep white matter chronic small vessel ischemic changes.? There is intracranial internal carotid artery atherosclerosis.? ? Skull and face:? Calvarium and visualized facial bones appear intact, without suspicious lesions.? ? Sinuses:? Visualized sinuses and mastoids are clear.? ? IMPRESSION:? No acute intracranial disease process. ? Findings discussed with Dr. Barboza on January 26, 2022 at 7:53 p.m. ? This study fulfills neurological imaging criteria for inclusion or exclusion of acute stroke therapies based on available published neurological guidelines.? ? ? Dictated by: Coty Salomon MD, PhD on 01/26/2022 at 19:51 ? ? Approved by: Coty Salomon MD, PhD on 01/26/2022 at 19:55?? CTA - brain/neck: Radiologist's Impression: [place] [address] CT Scan Report Signed Patient: Ava Lynn MR#: [id number] : 1950 Acct:[id number] Age/Sex: 71 / F Date of Service: 01/26/22 Loc: ED Accession Number: [id number] ?? Procedure: CT angio head and neck Ordering Provider: Jose López D.O. PROCEDURE:? CT ANGIO HEAD AND NECK ? INDICATIONS:? code stroke.? Facial droop and confusion. ? TECHNIQUE:? After the administration of intravenous contrast, 1 mm thick sections acquired from the aortic arch through the [place].? Post-contrast 4.5 mm thick sections then re-acquired from the foramen magnum to the vertex.? 3-dimensional wmewsra-auyszollz-fklxwkqgis (MIP) and/or volume rendering reformats were acquired of the central intracranial vasculature and neck separately. For radiation dose reduction, the following was used:? automated exposure control, adjustment of mA and/or kV according to patient size.? ? COMPARISON:? Merged With [facility], CT, CT STROKE, 01/26/2022, 19:46. ? FINDINGS:? Image quality:? There is metallic streak artifact from patient's dental hardware limiting evaluation.? ? BRAIN:? CSF spaces:? Basal cisterns are patent.? No extra-axial fluid collections.? Ventricles are normal in size and shape.? ? Brain:? No intracranial hematoma collection, mass, or mass effect.? Ibarra-white matter interface appears preserved.? No abnormal intracranial enhancement ? Skull and face:? Calvarium and facial bones appear intact, without suspicious lesions.? Orbits appear normal.? ? Sinuses:? Sinuses and mastoids are clear.? ? HEAD CT ANGIOGRAPHY:? Anterior circulation:? Intracranial internal carotid arteries are normal in size and appear patent bilaterally.? There is mild atherosclerotic calcification along the cavernous segments of the internal carotid arteries.? The paired anterior cerebral arteries appear patent bilaterally.? The anterior communicating artery also appears patent. The middle cerebral arteries appear patent bilaterally.? No high-grade stenosis, occlusion, or filling defects.? No cerebral aneurysms identified. ? Posterior circulation:? Visualized portions of the vertebral arteries demons trate normal caliber, and join to form a patent basilar artery.? The posterior cerebral arteries appear patent bilaterally.? There is persistent circulation on the left, with the left posterior cerebral artery supplied by a posterior communicating artery.? No high-grade stenosis, occlusion, or filling defects.? No cerebral aneurysms identified. ? NECK CT ANGIOGRAPHY:? Carotid system:? The great vessels demonstrate a conventional anatomy as they arise from the aortic arch.? The origins of the common carotid arteries appear patent.? The common carotid arteries demonstrate normal caliber and courses.? There is atherosclerotic calcified plaque in the distal right common carotid artery and carotid bulb with narrowing of up to approximately 50% in the carotid bulb.? On the left, there is minimal calcified plaque in the carotid bulb with minimal narrowing of less than 25%.? The internal carotid arteries demonstrate normal calibers and courses.? ? Posterior circulation:? The origins of the vertebral arteries both appear patent.? The more superior extracranial portions of both vertebral arteries also demonstrate normal courses and calibers.? They join to form a patent basilar artery.? ? ? Soft tissues:? Visualized neck soft tissues demonstrate a few hypoattenuating nodules in the right thyroid lobe with the largest measuring up to approximately 1 cm. ? Bones:? No suspicious bony lesions.? Visualized cervical spine demonstrates preserved alignment. ? IMPRESSION:? ? 1. No high-grade stenosis or occlusion of the central intracranial arteries. ? 2. Focal narrowing in the proximal right carotid bulb of up to approximately 50%. ? Any quantitative measurements of stenosis were performed using NASCET criteria.? ? ? Dictated by: Bubba Chaves M.D. on 01/26/2022 at 20:18 ? ? Approved by: Bubba Chaves M.D. on 01/26/2022 at 20:26?? ECG Data Attestation: I personally reviewed and interpreted this ECG as follows: Interpretation: Sinus rhythm Ventricular rate 98 Occasional PVC Left axis deviation LVH No ST T wave changes MDM Narrative Medical decision making narrative: Patient arrived within the 4-1/2 hour tPA window if the onset of patient's symptoms is calculated at 16 15. It potentially did start earlier than this. NIH score of [address] unremarkable. I did discuss the case with [facility]. They evaluated the patient through the monitor. When the NIH score was repeated there was improvement of the symptoms. The NIH score this time was 1 for right-sided facial droop which actually has improved from her initial visit but is still present. The issues that she was have with coordination with her upper and lower extremities are resolved. The sensation differences were resolved as well. Her EKG is unremarkable. The CTA head and neck shows no acute pathology. Recommendation was to hold on tPA. Patient does require admission for further evaluation and treatment. She was given aspirin and Plavix here in the emergency department. Did discuss the need for admission with the patient. Discussed the case with KILEY Medrano the [facility] provider who will admit for further evaluation and treatment. Discharge Plan Departure Patient Disposition: Admitted as Observation Clinical Impression: Transient cerebral ischemia Admit Date/Time: 01/26/22 21:28 Admit Provider: Eliza Medrano
[2022-01-26 19:57] LABS: Add Manual Diff / Slide Review NO; Basophils Absolute Auto 100 /uL (0-100); Eosinophils Absolute Auto 100 /uL (0-450); Eosinophils Percent Auto 1.2 % (2-4); Hematocrit 40.4 % (36-46); Hemoglobin 13.6 g/dL (12.0-16.0); Lymphocytes Absolute Auto 2100 /uL (1100-4500); Lymphocytes Percent Auto 26.3 % (25-40); Mean Corpuscular HGB Conc 33.6 % (30-36); Mean Corpuscular Hemoglobin 31.1 PG (26-34); Mean Corpuscular Volume 92.5 fL (80-100); Monocytes Absolute Auto 700 /uL (0-900); Monocytes Percent Auto 8.9 % (3-14); Neutrophils Absolute Auto 5000 /uL (1500-7000); Neutrophils Percent Auto 62.6 % (50-75); Platelet Count 260 X10^3/uL (150-400); Red Blood Cell Count 4.37 X10^6/uL (4.0-5.2); Red Cell Distribution Width 14.3 % (11.6-14.8); White Blood Cell Count 7.9 X10^3/uL (4.5-11.0)
[2022-01-26 20:05] LABS: INR 1.1 (0.9-1.3); Prothrombin Time 11.9 SECONDS (10.1-12.7)
[2022-01-26 20:08] LABS: PTT Partial Thromboplastin Tim 34 SECONDS (26.4-36.2)
[2022-01-26 20:10] LABS: Alanine Aminotransferase 20 IU/L (<35); Albumin 4.6 g/dL (3.5-5.0); Albumin Globulin Ratio 1.6 (1.0-2.8); Alkaline Phosphatase 64 U/L (38-126); Aspartate Aminotransferase 34 IU/L (14-36); BUN Creatinine Ratio 20.3 (6-22); Bilirubin Total 0.5 mg/dL (0.2-1.3); Blood Urea Nitrogen 15 mg/dL (7-17); Calcium 8.7 mg/dL (8.4-10.2); Carbon Dioxide 28 mmol/L (22-32); Chloride 100 mmol/L (98-107); Creatine Kinase 109 U/L (30-135); Estimated Glomerular Filt Rate > 60 mL/min (>60); Ethanol (ETOH) < 10 mg/dL; Globulin 2.8 g/dL (1.7-4.1); Glucose 133 mg/dL (80-110); HEMOLYSIS < 15 (0-50); Lipase 71 U/L (23-300); Potassium 3.7 mmol/L (3.4-5.1); Sodium 138 mmol/L (137-145); Total Protein 7.4 g/dL (6.3-8.2)
[2022-01-26 20:21] LABS: Troponin I < 0.012 ng/mL (0.01-0.034)
[2022-01-26] MEDS: SODIUM CHLORIDE 0.9% 1,000 ML 1000 ML IV (20:23)
[2022-01-26 20:25] LABS: CKMB % Relative Index 1.7 % (1.5-5.0)
[2022-01-26] MEDS: CLOPIDOGREL 75 MG TABLET 300 MG PO (20:35)
[2022-01-26] MEDS: ASPIRIN 81 MG CHEW TAB 324 MG PO (20:38)
--- NOTE | 2022-01-26 21:35 | DI.MRI.S_ITS ---
PROCEDURE: MR HEAD/BRAIN WO CON INDICATIONS: TIA TECHNIQUE: Non-contrast axial T1 spin echo, axial T2 fast spin echo, sagittal and axial FLAIR, coronal T2 fast spin echo, axial gradient echo, axial diffusion and ADC through the brain. COMPARISON: [facility], MR, BRAIN WITHOUT CONTRAST, 03/26/2012, 13:56. [facility], CT, CT ANGIO HEAD AND NECK, 01/26/2022, 19:50. [facility], CT, CT STROKE, 01/26/2022, 19:46. FINDINGS: Image quality: Excellent. CSF spaces: Ventricles appear symmetric in size and shape. Basal cisterns are patent. No extra-axial fluid collections. Brain: No intracranial bleeds or mass effects. There is cerebral volume loss for age. There are periventricular and deep white matter chronic small vessel ischemic changes. Brainstem appears normal. Diffusion-weighted images show no acute ischemic insults. No chronic ischemic insults. Normal intravascular flow voids are present. Skull and face: Calvarial bone marrow is normal in signal. Orbits are normal. Note is made of bilateral lens replacements. Sinuses: Sinuses and mastoids are clear. IMPRESSION: No findings of acute or subacute infarction can be seen. Normal brain MRI for age. Dictated by: Felipe Rosario M.D. on 01/27/2022 at 8:23 Approved by: Felipe Rosario M.D. on 01/27/2022 at 8:25
[2022-01-26 21:36] LABS: COVID19 -Nasal RAPID Negative (Negative)
[2022-01-26 22:38] LABS: Hemoglobin A1C% w Est Avg Glu 5.9 % (4.0-6.0)
--- NOTE | 2022-01-26 23:44 | P.HP_ITS ---
History of Present Illness History of Present Illness Date Patient Seen: 01/26/22 Time Patient Seen: 23:44 Chief complaint: Confused, time disoriented, facial droop Narrative: Ava Lynn is a 71-year-old female was in her usual state of health at [facility] reading a scripture when she became confused then became unaware of the time and date and was having difficulties reading from her tablet. She realize that she was also speaking in a slurred matter. She has had a headache all day since this occurred. She denies nasal congestion, difficulty swallowing, currently she is not having any difficulties with her speech, denies shortness of breath, chest pain, nausea vomiting, dysuria, diarrhea constipation. She denies any paresthesias of her upper lower extremities. In the emergency department a code stroke was called and she had an initial NIH score of 4 which included slurred speech, inability to do [id number] or heel to walter maneuvers and diminished sensation on the left side of her face. Brain CT was negative for any acute intracranial process, head neck CTA indicated focal narrowing of the right carotid bulb of up to 50%, no high-grade stenosis or occlusion of the central intracranial arteries. Temp is 97.2?, blood pressure 139/85, heart rate 88, respiratory rate 18, oxygen saturation 97% on room air she weighs 63.5 kg with a BMI of 25.6 CBC is unremarkable, chemistries are unremarkable she has a mildly elevated glucose of 133 A1c is 5.9 troponin was negative TSH was 1.11, and COVID-19 PCR is negative. Patient has a history of symptomatic sinus bradycardia and was admitted and discharged in October of 2020. She was found to have a reduced ejection fraction of 40-45% at that time which was improved over a previous admission in June of 2020. She has been following up with Cardiology and underwent repeat echocardiogram in August 2021 and had a decreased EF of 35-40% with moderate global hypokinesis of the left ventricle. Patient History Medical History (Updated 01/27/22 @ 01:38 by RAPHAEL Lloyd) History of spinal fracture Migraine Sjogren's disease Systolic CHF with reduced left ventricular function, NYHA class 3 Surgical History History of bladder surgery History of History of facial fracture repair Hx of lumbosacral spine surgery Family & Social History Family History (Updated 01/26/22 @ 23:48 by RAPHAEL Lloyd) Father Diabetes mellitus Stroke AAA (abdominal aortic aneurysm) Myocardial infarction Mother Breast cancer AAA (abdominal aortic aneurysm) Son Stroke Cerebral aneurysm Family history unavailable: No (Multiple familymembers w/AAAs) Social History: household members family Prior Living Arrangements House Safety & Behavioral: Feels Safe in Current Yes Environment Been Physically Hurt or No Threatened By a Person Tobacco & Substance use: Smoking Status Never smoker alcohol intake never alcohol intake frequency 0-2 drinks per day Substance Use Type does not use Meds Home Medications and Allergies Home Medications Medication Instructions Recorded Confirmed Type sennosides 8.6 mg tablet (senna) 17.2 mg PO HS ##0 10/27/17 01/26/22 History docusate sodium 100 mg capsule 100 mg PO DAILY 07/17/20 01/26/22 History (Colace) trazodone 150 mg tablet 300 mg PO QPM 07/17/20 01/26/22 History atorvastatin 20 mg tablet (Lipitor) 40 mg PO BEDTIME #30 tabs 07/19/20 01/26/22 Rx spironolactone 25 mg tablet 12.5 mg PO DAILY #15 tabs 07/19/20 01/26/22 Rx aspirin 81 mg tablet,delayed 81 mg PO DAILY 10/02/20 01/26/22 History release losartan 25 mg tablet 12.5 mg PO QPM 10/28/20 01/26/22 History pantoprazole 20 mg tablet,delayed 20 mg PO 0700 #30 tabs 07/30/21 01/26/22 Rx release albuterol sulfate 90 mcg/actuation 2 puff inhalation PRN PRN 01/26/22 01/26/22 History aerosol inhaler Shortness Of Breath cyclobenzaprine 10 mg tablet 10 mg PO PC 01/26/22 01/26/22 History furosemide 20 mg tablet 20 mg PO PRN PRN Weight Gain 01/26/22 01/26/22 History hydrocodone 5 mg-acetaminophen 325 1 tab PO PRN PRN Pain (Scale Score 01/26/22 01/26/22 History mg tablet 1-3) metoprolol succinate 100 mg 50 mg PO BID 01/26/22 01/26/22 History tablet,extended release 24 hr Allergies Allergy/AdvReac Type Severity Reaction Status Date / Time No Known Drug Allergies Allergy Verified 04/03/18 17:34 Review of Systems Review of Systems ROS: Yes All systems reviewed with the patient and are negative except as otherwise documented Exam Vital Signs (past 8 hours): - 01/26/22 19:36 01/26/22 19:44 01/26/22 19:45 Temperature 98 F Pulse Rate Respiratory Rate Blood Pressure 154/106 H 154/106 H Pulse Oximetry Oxygen Flow Rate 01/26/22 20:00 01/26/22 20:13 01/26/22 20:13 Temperature Pulse Rate 100 H 102 H Respiratory Rate 22 23 Blood Pressure 162/87 H Pulse Oximetry 92 92 Oxygen Flow Rate 01/26/22 20:30 01/26/22 21:00 01/26/22 21:30 Temperature Pulse Rate 90 92 H 102 H Respiratory Rate 12 22 32 H Blood Pressure Pulse Oximetry 96 95 97 Oxygen Flow Rate 01/26/22 22:21 Temperature 97.2 F L Pulse Rate 88 Respiratory Rate 18 Blood Pressure 139/85 Pulse Oximetry 97 Oxygen Flow Rate 0 Oxygen Flow Rate 0 Narrative Exam Narrative: Gen: Alert, oriented, well-developed y.o. female, NAD HEENT: normocephalic, atraumatic, conjunctiva clear, sclera non-icteric, has a mild right sided facial droop oral, oral dyskinesia (tongue rolling) mucosa pink and moist Neck: supple, full ROM, no JVD, trachea is midline Resp: Lungs CTA, non-labored breathing CV: RRR, no murmur or rubs Abd: soft, non-tender, normoactive BTs Skin: no lesions or rashes, dry and intact Neuro: Alert and oriented X 4 w/no mild right-sided facial droop. Patient does have continuous tongue and jaw movement secondary to Sjogren's disease. Speech clear and coherent improving over time. Extremities: moves all 4 extremities, is ambulatory, negative Asael?s sign Psyche: normal mood and affect. Objective Labs Result Diagrams: 01/26/22 19:40 01/26/22 19:40 Labs: Laboratory Results - last 24 hr 01/26/22 01/26/22 01/26/22 19:40 19:40 19:40 WBC 7.9 RBC 4.37 Hgb 13.6 Hct 40.4 MCV 92.5 MCH 31.1 MCHC 33.6 RDW 14.3 Plt Count 260 Neut % (Auto) 62.6 Lymph % (Auto) 26.3 Stevens % (Auto) 8.9 Eos % (Auto) 1.2 L Baso % (Auto) 1.0 Neut # (Auto) 5000 Lymph # (Auto) 2100 Stevens # (Auto) 700 Eos # (Auto) 100 Baso # (Auto) 100 PT 11.9 INR 1.1 APTT 34 Sodium 138 Potassium 3.7 Chloride 100 Carbon Dioxide 28 BUN 15 Creatinine 0.74 Estimated GFR > 60 BUN/Creatinine Ratio 20.3 Glucose 133 H Hemoglobin A1c Calcium 8.7 Magnesium 2.0 Total Bilirubin 0.5 AST 34 ALT 20 Alkaline Phosphatase 64 Total Creatine Kinase CK-MB (CK-2) CK-MB (CK-2) Rel Index Troponin I Total Protein 7.4 Albumin 4.6 Globulin 2.8 Albumin/Globulin Ratio 1.6 Lipase 71 Ethyl Alcohol < 10 SARS-CoV-2 (PCR) 01/26/22 01/26/22 01/26/22 19:40 19:40 21:20 WBC RBC Hgb Hct MCV MCH MCHC RDW Plt Count Neut % (Auto) Lymph % (Auto) Stevens % (Auto) Eos % (Auto) Baso % (Auto) Neut # (Auto) Lymph # (Auto) Stevens # (Auto) Eos # (Auto) Baso # (Auto) PT INR APTT Sodium Potassium Chloride Carbon Dioxide BUN Creatinine Estimated GFR BUN/Creatinine Ratio Glucose Hemoglobin A1c 5.9 Calcium Magnesium Total Bilirubin AST ALT Alkaline Phosphatase Total Creatine Kinase 109 CK-MB (CK-2) 1.90 CK-MB (CK-2) Rel Index 1.7 Troponin I < 0.012 Total Protein Albumin Globulin Albumin/Globulin Ratio Lipase Ethyl Alcohol SARS-CoV-2 (PCR) Negative Assessment & Plan Assessment & Plan narrative: Ava Lynn is admitted for a TIA vs CVA ruleout. She has significant risk factors and a high NIH score necessitating observation overnight so she may undergo further testing. HFrEF, not likely in exacerbation * Chads Vas2 score is 7 * BNP ordered * Last echo 4 months ago had a reduced EF over prior. TIA/Stroke * Cardiac telemetry * NIH score greater than 5 [C]no, NIH scoring and neuro checks q 4 hours * Dual antiplatelet therapy: Yes[X]initiate dual antiplatelet therapy with clopidogrel 75 mg p.o. daily and aspirin 81 mg p.o. daily * MR stroke scheduled for 01/27 * Complete Echo with bubble study for 01/27 * PT/OT/ST evaluation Hypertension, acute with an admission bp of 154/106, present on admission * IV labetolol if his systolic exceeds 220 or diastolic greater than 105. HLD * Fasting lipid panel, pending for 0500 labs * Increased Atorvastatin 40 mg to 80 mg po at bedtime Risk stratification * Fasting lipid panel pending for the morning * A1c is 5.9 % [X] pre-diabetic VTE Prophylaxis: Wells risk score 0 [X]Enoxaparin 40 mg subQ once daily C Bilateral SCDs Patient is placed into observation as her stay is not expected to exceed 2 midnights. FEN: IV fluids: saline lock, diet: heart healthy, labs: CBC, C/BMP, liver enzymes, Mag, PT/INR Consultants None Dispo: probable discharge to home Code status: Full Code as discussed with the patient who identifies daughter Michelle as her surrogate and POA. [X] I have utilized all available immediate resources to obtain, update, or review of the patient's current medications COVID-19 COVID-19 status: Negative Result date/Date tested (Pos, Neg/Pending): 01/26/22 Scores CHADS-VASc Congestive heart failure: yes Hypertension: yes Age 75 years or older: no Diabetes mellitus: no Stroke, TIA, or TE: yes Vascular disease: yes Age 65 to 74 years: yes Sex category (female): Female CHADS-VASc Score: 7 Wells' Criteria for PE Clinical signs and symptoms of DVT: No PE is #1 Dx or equally likely: No Heart rate > 100: No Immobilization at least 3 days or surg in previous 4 weeks: No History of PE or DVT: No Hemoptysis: No Malignancy w/Treatment within 6 months or palliative: No Wells' PE Score total: 0 Quality VTE Deep Vein Thrombosis/Pulmonary Embolism Present on Admission: No MIPS - Admit I confirm the patient?s Advance Care Plan is present, Code status is documented, Surrogate decision maker is in patient?s record [If Yes, STOP here]: Yes MIPS - DC The patient has current or prior documentation of left ventricular ejection fraction (LVEF) less than 40%, or moderate or severely depressed left ventricular systolic function.: No
[2022-01-27] VITALS (8 sets, daily range): BP systolic 122–139; BP diastolic 73–85; PULSE 68–88; RESP 19–22; TEMP 36.2–37.4; O2SAT 96–98
[2022-01-27 01:04] LABS: Thyroid Stimulating Hormone 1.11 uIU/mL (0.47-4.68)
[2022-01-27] MEDS: METOPROLOL ER 50 MG TABLET PO ×2 (01:09→09:11)
[2022-01-27] MEDS: LOSARTAN 25 MG TABLET 12.5 MG PO (01:09)
[2022-01-27] MEDS: SENNOSIDES 8.6 MG TABLET 17.2 MG PO (01:10)
[2022-01-27] MEDS: HYDROCODONE/ACET 5/325 TABLET 1 TAB PO (01:10)
[2022-01-27] MEDS: TRAZODONE 50 MG TABLET 100 MG PO (01:17)
[2022-01-27] MEDS: CYCLOBENZAPRINE 10 MG TABLET PO (01:45)
[2022-01-27] MEDS: DOCUSATE 100 MG CAPSULE 200 MG PO (01:45)
[2022-01-27] MEDS: SODIUM CHLORIDE 0.9% FLUSH 10 ML IV ×2 (01:45→09:15)
[2022-01-27] MEDS: TRAZODONE 100 MG TABLET 200 MG PO (01:46)
--- NOTE | 2022-01-27 01:54 | DI.ECHO.S_ITS ---
[facility] +---------+ : : [address] : [place] : : : : [id number] : : : : Phone: [phone]+ Echocardiogram Report + + :Name: ALEC BANG Study Date: 01/27/2022 Height: 62 in : :[facility] ReadingLocation: Weight: 150 lb : : Gender: Female BSA: 1.7 m2 : :: 1950 Age: 71 yrs BP: 139/85 mmHg: :Reason For Study: TIA : :Ordering Physician: Sola AMBROSEformed By: Norma Harrell : :Referring: GABY AMBROSE : + + Interpretation Summary 1) Normal left ventricular size and thickness with moderately reduced systolic function (EF 35-40%). 2) Normal right ventricular size and function. 3) Mild mitral regurgitation present. 4) Injection of contrast documented no interatrial shunt. 5) Compared to the Echo 09/03/2021, no significant change. Procedure: A two-dimensional transthoracic echocardiogram with color flow and Doppler was performed. A saline contrast injection was performed to assess for cardiac shunting. The study quality was technically adequate. Comparison is made with the echocardiogram of 09/03/2021. The patient had occasional PVCs during the exam. Left Ventricle: The left ventricle is normal in size and wall thickness. The ejection fraction is estimated to be 35-40%. There is moderate global hypokinesis of the left ventricle. Right Ventricle: The right ventricle is normal in size and function. Atria: The left atrial size is normal. Right atrial size is normal. Injection of contrast documented no interatrial shunt. There is no Doppler evidence for an interatrial shunt. Mitral Valve: The mitral valve is normal in structure and function. There is mild mitral regurgitation. Aortic Valve: The aortic valve is trileaflet. The aortic valve opens well. There is no aortic valve stenosis. No aortic regurgitation is present. Tricuspid Valve: The tricuspid valve is normal in structure and function. There is mild tricuspid regurgitation. Pulmonic Valve: The pulmonic valve leaflets are thin and pliable; valve motion is normal. There is mild pulmonic regurgitation. Great Vessels: The aortic root is normal size. The ascending aorta is at the upper limits of normal in size. The IVC is of normal diameter and collapses greater than 50% with a sniff. This suggests a low right atrial pressure of 3 mm Hg. Pericardium/ Pleura There is no pericardial effusion. There is no pleural effusion. MMode/2D Measurements & Calculations LVIDd: 5.0 cm LVOT diam: 2.0 cm LVIDs: 4.0 cm Ao root diam: 3.2 cm FS: 19.3 % asc Aorta Diam: 3.4 cm EPSS: 1.6 cm Ao Arch Diam (Prox Trans): 2.4 cm IVSd: 0.83 cm LVPWd: 0.82 cm LV alvarado. diameter/BSA (cm/m^2): 3.0 LV sys. diameter/BSA (cm/m^2): 2.4 LA A2 area: 19.0 cm2 RA long axis: 5.0 cm LA A4 area: 14.1 cm2 RA area: 12.8 cm2 LA length (vol): 5.5 cm RA vol: 28.1 ml LA vol: 41.2 ml RA : 16.7 ml/m2 LA vol index: 24.4 ml/m2 IVC diam: 1.1 cm RVD1 (basal): 3.1 cm RVD2 (mid): 3.0 cm TAPSE: 1.7 cm Doppler Measurements & Calculations Ao V2 max: 139.0 cm/sec LVOT Max Giovanni: 76.4 cm/sec Ao V2 mean: 95.9 cm/sec LV V1 max P.3 mmHg Ao max P.7 mmHg LV V1 VTI: 16.4 cm Ao mean P.1 mmHg KAN(I,D): 1.9 cm2 Ao V2 VTI: 27.4 cm KAN(V,D): 1.7 cm2 sev ratio: 0.60 KAN indexed to BSA (cm^2/m^2): 1.1 MV E max giovanni: 55.8 cm/sec PA V2 max: 115.2 cm/sec MV A max giovanni: 109.5 cm/sec PA V2 mean: 81.6 cm/sec MV E/A: 0.51 PA mean P.9 mmHg Med Peak E' Giovanni: 4.6 cm/sec PA pr(Accel): 41.3 mmHg E/E' med: 12.0 Lat Peak E' Giovanni: 8.8 cm/sec E/E' lat: 6.3 E/e' average: 9.2 MV dec time: 0.23 sec SV(LVOT): 52.0 ml Reading Physician:09:13 AM
--- NOTE | 2022-01-27 02:56 | PC.NURSE ---
pt admitted tonight with TIA, symptoms have resolved. Pt has a jaw movement that according to her is due to Sjogress disease. NIH due to this is a 2. pt was upset around midnight because she wanted to take her night meds which included trazadone 300 mg, 10 mg of flexeril and a vicodin. Pt started crying and asking why it was taking so long to take her prescribed medications. pt stated I am going leave if I don't get my regular medications. Spoke to KILEY Medrano and the [facility] and patient was able to get her home meds given tonight.
[2022-01-27 05:01] LABS: NT-proBNP (BNP-Adult 18+) 60 pg/mL (<125)
[2022-01-27 06:01] LABS: Add Manual Diff / Slide Review NO; Basophils Absolute Auto 0 /uL (0-100); Basophils Percent Auto 0.7 % (0-2); Eosinophils Absolute Auto 100 /uL (0-450); Eosinophils Percent Auto 2.3 % (2-4); Hematocrit 34.9 % (36-46); Hemoglobin 12.1 g/dL (12.0-16.0); Lymphocytes Absolute Auto 2000 /uL (1100-4500); Lymphocytes Percent Auto 36.3 % (25-40); Mean Corpuscular HGB Conc 34.6 % (30-36); Mean Corpuscular Hemoglobin 31.7 PG (26-34); Mean Corpuscular Volume 91.5 fL (80-100); Monocytes Absolute Auto 600 /uL (0-900); Monocytes Percent Auto 11.3 % (3-14); Neutrophils Absolute Auto 2800 /uL (1500-7000); Neutrophils Percent Auto 49.4 % (50-75); Platelet Count 218 X10^3/uL (150-400); Red Blood Cell Count 3.81 X10^6/uL (4.0-5.2); Red Cell Distribution Width 14.3 % (11.6-14.8); White Blood Cell Count 5.6 X10^3/uL (4.5-11.0)
[2022-01-27 06:10] LABS: BUN Creatinine Ratio 12.9 (6-22); Blood Urea Nitrogen 8 mg/dL (7-17); Calcium 8.2 mg/dL (8.4-10.2); Carbon Dioxide 28 mmol/L (22-32); Chloride 107 mmol/L (98-107); Cholesterol 137 mg/dL (140-199); Estimated Glomerular Filt Rate > 60 mL/min (>60); Glucose 98 mg/dL (80-110); HDL Cholesterol 49 mg/dL (40-60); HEMOLYSIS < 15 (0-50); LDL Cholesterol Calculated 77 mg/dL (<100); Potassium 3.5 mmol/L (3.4-5.1); Sodium 138 mmol/L (137-145); Triglycerides 56 mg/dL (35-150)
--- NOTE | 2022-01-27 08:48 | CM.DANOTE ---
Addendum entered by Mariann Henao R.N. 01/27/22 13:27: Per , pt medically stable for discharge. Pt to discharge home via children POV. No needs from DCP. Mariann eHnao RN/MARIA AP Original Note: DCP Assessment: Payor: Medicare PCP: MD Ortega Pt is a 71 y.o. F who was admitted to the floor for observation following symptoms of confusion and slurred speech. Code stroke called in ED. Brain CT ordered and negative for any acute intracranial pressure. Head, neck CTA was ordered. Pt has a PMH of sjogren's disease, CHF, migraines and hx of spinal fracture. MRI and echo scheduled for today and was done this AM. Results pending. PT/OT/ST eval today. Pt here for management of symptoms/rule out stroke vs TIA. DCP met with pt this morning bedside. Pt up in bed eating breakfast. DCP introduced herself and role. Pt states that she is independent at baseline and lives with her children and grandchildren in a house in [place]. Pt states that she currently drives POV. Pt denies any DME use. Pt states that she knew something was wrong when she couldn't remember what day it was because she states that she always remembers its Thursday because of it being . Pt states that MRI and echo were done this morning. Pt denies any resources at this time. DCP identifies no needs. Pt states that once she is discharged, one of her children will come to pick her up from the hospital. Pt thankful for the conversation. DCP to continue to follow. P: Once pt is medically stable for discharge, pt to discharge home via children POV. Mariann Henao RN/MARIA AP Discharge Planning/Care Management Advanced directive, confirm from FAMILY Start: 01/26/22 22:40 Freq: Q24H Status: Active Protocol: Document 01/26/22 22:41 AKElsy (Rec: 01/26/22 22:41 AKP [id number]) Advance Directive, confirm on record Time 22:41 Person contacted Michelle (Daughter) Copy received No CM Discharge Assessment Start: 01/27/22 08:47 Freq: Status: Active Protocol: Document 01/27/22 08:47 CARA (Rec: 01/27/22 08:48 AJ [id number]) Discharge Planning Assessment Assigned Yarn Skeins Examiner Mariann Henao RN/MARIA AP Advance Directives? Yes Advance Directives on File No History Provided By Patient,Medical Record Prior Living Arrangements House Household Members family Type of transporation used prior to Drives own vehicle admit Independent with ADL's Yes Is patient alert and oriented? Yes Caregiver for Another No Discharge Plan Home Transportation Arrangement Family can provide transport. Referrals Initiated None needed Whiteboard Updated in Patient Room with Yes name and ext. # of Yarn Skeins Examiner Comment Instructed to call Review Status In Process Please Provide Date Initial DC 01/27/22 Assessment Was Performed Next Review Type Continued Stay Review
[2022-01-27] MEDS: DOCUSATE 100 MG CAPSULE PO (09:11)
[2022-01-27] MEDS: CLOPIDOGREL 75 MG TABLET PO (09:11)
[2022-01-27] MEDS: PANTOPRAZOLE DR 20 MG TABLET PO (09:11)
[2022-01-27] MEDS: ASPIRIN EC 81 MG TABLET PO (09:11)
[2022-01-27] MEDS: ENOXAPARIN 40 MG/0.4 ML SYRINGE SUBCUT (09:12)
--- NOTE | 2022-01-27 09:33 | OT.IP.EVAL ---
Past Medical History (Last Reviewed 01/27/22 @ 03:16 by Jose López DO) History of spinal fracture Migraine Sjogren's disease Systolic CHF with reduced left ventricular function, NYHA class 3 Surgical History (Last Reviewed 07/30/21 @ 20:35 by Priyanka Huffman MD) History of bladder surgery History of History of facial fracture repair Hx of lumbosacral spine surgery Occupational Therapy Inpatient Evaluation/Re-Eval M1 PT/OT-IP Prior Functional Status Start: 01/27/22 08:30 Freq: NEEDED Status: Active Protocol: Document 01/27/22 09:00 [facility] (Rec: 01/27/22 09:59 [facility] [id number]) Medical Review Prior Functional Status Communication independent Mobility and Gait Independent, pt states on a rare occasion will luse a cane due to having vertigo. Activities of Daily Living and IADL's Completely independent with all ADL, IADL, and drives. Social History Household Members family Living Arrangements House Number of Floors (Floors) Two Floors Number of Stairs To Enter/Railing? Ramp to enter the house. 2 steps,landing and then flight of steps up to the second floor, left hand rails going up the steps. pt uses the hot tub upstairs. Home Environment Standard Height Toilet,Walk in Shower,Tub/Shower Home Equipment Straight Cane,Bedside Commode Additional Social History Comment Pt also take cares of multiple pets at home including a horse ,boar, chicken, and dog. There are multiple family members that live in the house including her son who per pt just got his leg cut off. Pt also has a supportive daughter that lives 1.5 miles away. M2 OT-IP Current Condition Start: 01/27/22 09:33 Freq: Status: Active Protocol: Document 01/27/22 09:00 [facility] (Rec: 01/27/22 09:59 [facility] [id number]) Occupational Therapy Current Condition Current Condition Evaluation Date 01/27/22 Treatment Diagnosis TIA Diagnosis Onset Date 01/26/22 M3 OT- IP Subjective and Pain Start: 01/27/22 09:33 Freq: Status: Active Protocol: Document 01/27/22 09:00 [facility] (Rec: 01/27/22 09:59 [facility] [id number]) OT- Subjective Occupational Therapy Visit Type Type Initial Evaluation Visit Start Time 09:00 Visit Stop Time 09:33 Total Visit Minutes 33 Occupational Therapy Visit Comments Patient Comments Pt agreed to get up for OT eval. Patient/Caregiver Goals TO go home. OT Pain Assessment Pain When Pain Assessed During Mobility Pain Present Pain Present Pain Reported Location Back Description Aching Pain Behaviors Guarding,Holding Area M4 OT- IP ADL's Start: 01/27/22 09:33 Freq: Status: Active Protocol: Document 01/27/22 09:00 [facility] (Rec: 01/27/22 09:59 [facility] [id number]) OT [id number] Comments OT Self-Feeding Comments per pt no issues OT ADL-Grooming General Evaluation Grooming Ability Independent OT ADL-Oral Care General Eval Oral Care Ability Independent OT ADL-Dressing General Eval Lower Body Dressing Ability Independent Comments OT Dressing Comments Pt able to fuad/doff socks while seated. OT ADL-Toileting Comments OT Toileting Comments Pt states has been using the toilet on her own independently. OT ADL-Bathing Comments OT Bathing Comments not performed M5 OT- IP IADL's Start: 01/27/22 09:33 Freq: Status: Active Protocol: Document 01/27/22 09:00 [facility] (Rec: 01/27/22 09:59 [facility] [id number]) OT-Instrumental Activities of Daily Living Home Safety Awareness Awareness of Need for Assistance at Home Good Awareness Ability to Problem Solve Emergency Able to Problem Solve Situations Medication Management Medication Management No Deficits Identified Money Management Money Management No Deficits Identified Meal Preparation Meal Preparation Comments Pt states to get family to help more now. Glassie Glassie Comments Pt states to get her family to assist her more now. Driving Driving Concerns Identified Regarding Safety M6 OT- IP Functional Cognition Start: 01/27/22 09:33 Freq: Status: Active Protocol: Document 01/27/22 09:00 [facility] (Rec: 01/27/22 09:59 [facility] [id number]) Cognitive Factors Limiting Selfcare Function Cognitive Ability Level of Alertness Alert Patient Orientation Name,Age,Birthday,Month,Date, Year,Day of Week,Place, Situation Attention Span Ability Capable of Focused Attention, Capable of Sustained Attention Ability to Follow Commands Able to Follow One Step Commands Memory Description Short Term Impaired Safety Awareness No Deficits Noted Problem Solving Ability No deficits Noted Executive Function Ability Unable to Remember Details Cognitive Comments Cognitive Assessment Comments Pt able to follow commands for ADL , mobility and cognitive assessment. However at times needing reminders to follow the commands. Pt scored 125 seconds on [place] Making Part B which implies severe impairments for visual attention, task switching, speed of processing, mental flexibility, and executive functioning. Pt is well aware that she is not thinking well and states will not be driving at this time. Pt having trouble to recall to switch between a number and letter on the assessment and needing cues to stay on track. Pt able to answer all home safety situations with 100% accuracy. OT- Vision and Hearing OT- Hearing Assessment OT- Hearing Assessment Right Ear Impaired OT- Vision Assessment Vision History Cataracts Visual Acuity Glasses All The Time M7 OT- IP Mobility and Balance Start: 01/27/22 09:33 Freq: Status: Active Protocol: Document 01/27/22 09:00 [facility] (Rec: 01/27/22 09:59 [facility] [id number]) OT- Bed Mobility Assessment Rolling Type of Rolling Roll to Left Level of Assistance Independent Supine to Sit Supine to Sit Assist Independent Sit to Supine Sit to Supine Assist Independent Scooting Scooting to Edge of Bed Independent OT-Transfer Assessment Sit to and From Stand Sit to and from Stand Independent Transfers Transfer Ability Independent Technique Transfer Destination Bed Devices Transfer Assistive Devices None Comments Mobility Comments Pt able to move independently in the room. OT- Balance Assessment Sitting Balance and Reactions Static Sitting Balance Ability Normal Dynamic Sitting Balance Ability Normal Standing Balance and Reactions Static Standing Balance Ability Normal Dynamic Standing Balance Ability Good M8 OT- IP Objective Assessments Start: 01/27/22 09:33 Freq: Status: Active Protocol: Document 01/27/22 09:00 [facility] (Rec: 01/27/22 09:59 [facility] [id number]) OT Gross Range of Motion Upper Extremity Range of Motion Assessment Within Functional Limits OT Strength Upper Extremity Strength Assessment Within Functional Limits Comments Strength Comments grossly WFl for age and lifestyle. OT- Coordination Assessment Upper Extremity Finger to Nose Test Within Functional Limits Comments Coordination Comments 9 hole test 23 seconds RUE -50 % for age group and 20 seconds for LUE aprox 90% for age group. Pt was born left handed but in school was encouraged to use her right hand instead. OT-Muscle Tone Assessment Muscle Tone WNL Yes OT Sensation Assessment Comments Summary Comments Left wrist/handing decreased for proprioception Edema Edema Absent M9 OT- IP Assessment and Plan Start: 01/27/22 09:33 Freq: Status: Active Protocol: Document 01/27/22 09:00 [facility] (Rec: 01/27/22 09:59 [facility] [id number]) OT Summary Assessment and Plan Potential Rehabilitation Potential Good Analytic Complexity at Evaluation Low Summary OT Impairments Functional Cognition, Functional Mobility,Bathing Progress Towards Goals Progressing Toward Goals Assessment Summary Pt low complexity and here due to TIA and per pt feels almost back to baseline needs except for not thinking as clearly yet but much improved from yesterday. Pt scored 125 seconds on [place] Making Part B which implied significant impairments for visual attention, task switching, speed of processing, mental flexibility , and executive functioning. Pt aware she will not drive at this time. Pt has a supportive family to be able to assist her at home. Pt to go home when medically stable. Goals Bathing Goal Independent Days to Meet Goals 1 Frequency of Treatment Frequency Of Treatment Once a Day Treatment Plan OT Treatment Plan ADL Training,Patient/Family Education,Discharge Planning Discharge Recommendations OT Discharge Recommendations Home with Assistance Transportation Needs at Discharge Private Vehicle
[2022-01-27] MEDS: POTASSIUM CHLORIDE 20 MEQ TAB PO (10:30)
--- NOTE | 2022-01-27 11:59 | P.DS_ITS ---
History of Present Illness History of Present Illness Date Patient Seen: 01/27/22 Time Patient Seen: 12:01 Chief complaint: Confused, time disoriented, facial droop Narrative: Ava Lynn is a 71-year-old female was in her usual state of health at [facility] reading a scripture when she became confused then became unaware of the time and date and was having difficulties reading from her tablet.? She realize that she was also speaking in a slurred matter.? She has had a headache all day since this occurred.? She denies nasal congestion, difficulty swallowing, currently she is not having any difficulties with her speech, denies shortness of breath, chest pain, nausea vomiting, dysuria, diarrhea constipation.? She denies any paresthesias of her upper lower extremities. In the emergency department a code stroke was called and she had an initial NIH score of 4 which included slurred speech, inability to do [id number] or heel to walter maneuvers and diminished sensation on the left side of her face.? Brain CT was negative for any acute intracranial process, head neck CTA indicated focal narrowing of the right carotid bulb of up to 50%, no high-grade stenosis or occlusion of the central intracranial arteries.? Temp is 97.2?, blood pressure 139/85, heart rate 88, respiratory rate 18, oxygen saturation 97% on room air she weighs 63.5 kg with a BMI of 25.6 CBC is unremarkable, chemistries are unremarkable she has a mildly elevated glucose of 133 A1c is 5.9 troponin was negative TSH was 1.11, and COVID-19 PCR is negative. Patient has a history of symptomatic sinus bradycardia and was admitted and discharged in October of 2020.? She was found to have a reduced ejection fraction of 40-45% at that time which was improved over a previous admission in June of 2020. She has been following up with Cardiology and underwent repeat echocardiogram in August 2021 and had a decreased EF of 35-40% with moderate global hypokinesis of the left ventricle. Discharge Providers Provider Date of admission: 01/26/22 21:28 Discharge Date: 01/27/22 Primary care physician: Maximo Vivas MD Consults: 01/26/22 21:52 Consult to Occupational Therapy Evaluate & Treat Comment: Physician Instructions: Evaluate and treat Consult to Physical Therapy Evaluate & Treat Comment: Physician Instructions: Evaluate and Treat Consult to Speech Therapy Evaluate & Treat Comment: Physician Instructions: Evaluate and treat Discharge provider: Barbra Da Silva MD Summary Hospital Course Discharge Diagnosis: 1. Probable TIA 2. Sjogren's Syndrome 3. Congestive heart failure, with reduced ejection fraction, EF 35-40% 4. Migraine Headache Hospital Course: The patient was admitted to the hospital fo evaluation of TIA/Stroke due to her symptoms of confusion, slurred speech, headache, focal numbness and weakness. She has had significant improvement today. She underwent MRI of the head which was negatv for acute stroke. Echo revealed no PFO and EF 35-40%. Her NIHSS yesterday was 4-5, today she is about 1. Patient was placed on dual antiplatelet therapy which she will continue. She will have her lipitor increased to 80 mg daily. She will follow up with Dr. Cervantes for an outpatient Merari patch to r/o paroxsym al atrial fibrillation. She was deemed appropriate for discharge home. Status at Discharge Cognitive/behavioral status at discharge: oriented Functional status at discharge: independent ambulation Overall status at discharge: patient is progressing back to baseline Exam Vital Signs (past 8 hours): - 01/27/22 06:00 01/27/22 08:50 01/27/22 09:11 Temperature 99.3 F Pulse Rate 74 87 78 Respiratory Rate 22 Blood Pressure 132/78 138/78 Pulse Oximetry 98 Oxygen Flow Rate 0 01/27/22 11:46 Temperature 97.1 F L Pulse Rate 71 Respiratory Rate 19 Blood Pressure 122/73 Pulse Oximetry 97 Oxygen Flow Rate 0 Oxygen Flow Rate 0 Narrative Exam Narrative: Pleasant female in no acute distress HENMT Other: NC/AT, PERRL, EOMI, no facial asymmetry Resp Other: Lungs: clear to auscultation Cardio Other: CV: RRR nl Sl S2 2/6 KERRIE GI Other: ABD: Soft/ non tender/ non distended Neuro Other: NIHSS -1 Extrem Other: no edema Objective Labs Result Diagrams: 01/27/22 05:36 01/27/22 05:36 Labs: Laboratory Results - last 24 hr 01/26/22 01/26/22 01/26/22 19:40 19:40 19:40 WBC 7.9 RBC 4.37 Hgb 13.6 Hct 40.4 MCV 92.5 MCH 31.1 MCHC 33.6 RDW 14.3 Plt Count 260 Neut % (Auto) 62.6 Lymph % (Auto) 26.3 [place] % (Auto) 8.9 Eos % (Auto) 1.2 L Baso % (Auto) 1.0 Neut # (Auto) 5000 Lymph # (Auto) 2100 [place] # (Auto) 700 Eos # (Auto) 100 Baso # (Auto) 100 PT 11.9 INR 1.1 APTT 34 Sodium 138 Potassium 3.7 Chloride 100 Carbon Dioxide 28 BUN 15 Creatinine 0.74 Estimated GFR > 60 BUN/Creatinine Ratio 20.3 Glucose 133 H Hemoglobin A1c Calcium 8.7 Magnesium 2.0 Total Bilirubin 0.5 AST 34 ALT 20 Alkaline Phosphatase 64 Total Creatine Kinase CK-MB (CK-2) CK-MB (CK-2) Rel Index Troponin I NT-Pro-B Natriuret Pep Total Protein 7.4 Albumin 4.6 Globulin 2.8 Albumin/Globulin Ratio 1.6 Triglycerides Cholesterol LDL Cholesterol, Calc HDL Cholesterol Lipase 71 TSH Ethyl Alcohol < 10 SARS-CoV-2 (PCR) 01/26/22 01/26/22 01/26/22 19:40 19:40 19:40 WBC RBC Hgb Hct MCV MCH MCHC RDW Plt Count Neut % (Auto) Lymph % (Auto) [place] % (Auto) Eos % (Auto) Baso % (Auto) Neut # (Auto) Lymph # (Auto) [place] # (Auto) Eos # (Auto) Baso # (Auto) PT INR APTT Sodium Potassium Chloride Carbon Dioxide BUN Creatinine Estimated GFR BUN/Creatinine Ratio Glucose Hemoglobin A1c 5.9 Calcium Magnesium Total Bilirubin AST ALT Alkaline Phosphatase Total Creatine Kinase 109 CK-MB (CK-2) 1.90 CK-MB (CK-2) Rel Index 1.7 Troponin I < 0.012 NT-Pro-B Natriuret Pep Total Protein Albumin Globulin Albumin/Globulin Ratio Triglycerides Cholesterol LDL Cholesterol, Calc HDL Cholesterol Lipase TSH 1.11 Ethyl Alcohol SARS-CoV-2 (PCR) 01/26/22 01/26/22 01/27/22 19:40 21:20 05:36 WBC 5.6 RBC 3.81 L Hgb 12.1 Hct 34.9 L MCV 91.5 MCH 31.7 MCHC 34.6 RDW 14.3 Plt Count 218 Neut % (Auto) 49.4 L Lymph % (Auto) 36.3 [place] % (Auto) 11.3 Eos % (Auto) 2.3 Baso % (Auto) 0.7 Neut # (Auto) 2800 Lymph # (Auto) 2000 [place] # (Auto) 600 Eos # (Auto) 100 Baso # (Auto) 0 PT INR APTT Sodium Potassium Chloride Carbon Dioxide BUN Creatinine Estimated GFR BUN/Creatinine Ratio Glucose Hemoglobin A1c Calcium Magnesium Total Bilirubin AST ALT Alkaline Phosphatase Total Creatine Kinase CK-MB (CK-2) CK-MB (CK-2) Rel Index Troponin I NT-Pro-B Natriuret Pep 60 Total Protein Albumin Globulin Albumin/Globulin Ratio Triglycerides Cholesterol LDL Cholesterol, Calc HDL Cholesterol Lipase TSH Ethyl Alcohol SARS-CoV-2 (PCR) Negative 01/27/22 05:36 WBC RBC Hgb Hct MCV MCH MCHC RDW Plt Count Neut % (Auto) Lymph % (Auto) [place] % (Auto) Eos % (Auto) Baso % (Auto) Neut # (Auto) Lymph # (Auto) [place] # (Auto) Eos # (Auto) Baso # (Auto) PT INR APTT Sodium 138 Potassium 3.5 Chloride 107 Carbon Dioxide 28 BUN 8 Creatinine 0.62 Estimated GFR > 60 BUN/Creatinine Ratio 12.9 Glucose 98 Hemoglobin A1c Calcium 8.2 L Magnesium 2.0 Total Bilirubin AST ALT Alkaline Phosphatase Total Creatine Kinase CK-MB (CK-2) CK-MB (CK-2) Rel Index Troponin I NT-Pro-B Natriuret Pep Total Protein Albumin Globulin Albumin/Globulin Ratio Triglycerides 56 Cholesterol 137 L LDL Cholesterol, Calc 77 HDL Cholesterol 49 Lipase TSH Ethyl Alcohol SARS-CoV-2 (PCR) [facility] Medical History History of spinal fracture Migraine Sjogren's disease Systolic CHF with reduced left ventricular function, NYHA class 3 Surgical History History of bladder surgery History of History of facial fracture repair Hx of lumbosacral spine surgery Family History (Updated 01/26/22 @ 23:48 by RAPHAEL Lloyd) Father Diabetes mellitus Stroke AAA (abdominal aortic aneurysm) Myocardial infarction Mother Breast cancer AAA (abdominal aortic aneurysm) Son Stroke Cerebral aneurysm Social History household members: family Smoking Status: Never smoker alcohol intake: never Discharge Assessment & Plan Assessment and Plan Assessment: 1.Probable TIA 2. Sjogren's Syndrome 3. Congestive heart failure, with reduced ejection fraction, EF 35-40% 4. Migraine Headache Plan of Treatment: Discharge home F/u with Dr. Cervantes F/u with Dr. Correia for Merari patch Discharge Plan Discharge Plan Patient Disposition: Home Discharge orders & Medications Prescriptions: New clopidogrel 75 mg Tablet 75 mg PO DAILY Qty: 21 0RF atorvastatin [Lipitor] 80 mg tablet 80 mg PO BEDTIME Qty: 30 0RF Continued sennosides [senna] 8.6 MG tablet 17.2 mg PO HS Qty: 0 losartan 25 mg Tablet 12.5 mg PO QPM pantoprazole 20 mg Tablet,Delayed Release (Dr/Ec) 20 mg PO 0700 Qty: 30 0RF trazodone 150 mg tablet 300 mg PO QPM Label Comments: TAKE UP TO 2 TABLETS BY MOUTH EVERY EVENING docusate sodium [Colace] 100 mg Capsule 100 mg PO DAILY spironolactone 25 mg Tablet 12.5 mg PO DAILY Qty: 15 0RF Label Comments: pt has it but hasn't started it aspirin 81 mg tablet,delayed release (DR/EC) 81 mg PO DAILY cyclobenzaprine 10 mg tablet 10 mg PO PC Label Comments: take 1 tablet by mouth three times a day hydrocodone-acetaminophen 5-325 mg tablet 1 tab PO PRN PRN (Reason: Pain (Scale Score 1-3)) Label Comments: take 2 tablets by mouth every 4 to 6 hours metoprolol succinate 100 mg tablet extended release 24 hr 50 mg PO BID Label Comments: take 1/2 tablet by mouth twice a day furosemide 20 mg tablet 20 mg PO PRN PRN (Reason: Weight Gain) Label Comments: take 1 tablet by mouth once daily if needed (WEIGHT GAIN, LEG EDEMA) albuterol sulfate 90 mcg/actuation HFA aerosol inhaler 2 puff INHALATION PRN PRN (Reason: Shortness Of Breath) Label Comments: INHALE 2 puffs BY MOUTH AND INTO LUNGS every 6 hours as needed Discontinued atorvastatin [Lipitor] 20 mg Tablet 40 mg PO BEDTIME Qty: 30 0RF Follow up/Referrals: Maximo Vivas MD [Primary Care Provider] - Discharge Health Status Multidrug resistant organism: No MDRO Diet/Activity/Treatments Diet: Low-sodium and Low-cholesterol Discharge Data Primary Care Provider: Maximo Vivas Attending Provider: Eliza Medrano VTE Deep Vein Thrombosis/Pulmonary Embolism Present on Admission: No
--- NOTE | 2022-01-27 12:03 | PT.IIE ---
Surgical History (Last Reviewed 07/30/21 @ 20:35 by Priyanka Huffman MD) History of bladder surgery History of History of facial fracture repair Hx of lumbosacral spine surgery Medical History (Last Reviewed 01/27/22 @ 03:16 by Jose López DO) History of spinal fracture Migraine Sjogren's disease Systolic CHF with reduced left ventricular function, NYHA class 3 Physical Therapy Inpatient Evaluation/Re-Eval M1 PT/OT-IP Prior Functional Status Start: 01/27/22 08:30 Freq: NEEDED Status: Active Protocol: Document 01/27/22 10:15 AW (Rec: 01/27/22 11:26 AW [id number]) Medical Review Prior Functional Status Communication independent Mobility and Gait Independent, pt states on a rare occasion will use a cane due to having vertigo. She walks around her house and property with and without cane . She reports regular falls - at least monthly - which she attributes to vertigo and to inattention. Activities of Daily Living and IADL's Completely independent with all ADL, IADL, and drives. Prior Functional Level (Other details) Pt was seen with CHF in June 2020. Her Kellogg score at that time was 52/56. Vestibular and balance-focused PT was recommended but pt did not follow up. Social History Household Members family Living Arrangements House Number of Floors (Floors) Two Floors Number of Stairs To Enter/Railing? Ramp to enter the house. 2 steps and landing and then flight of steps up to the second floor, left hand rails going up the steps. Home Environment Standard Height Toilet,Walk in Shower,Tub/Shower Home Equipment Front Wheel Walker,Four Wheel Walker,Straight Cane,Manual Wheelchair,Power Wheelchair/ Scooter,Bedside Commode,Shower Seat with Backrest,Hand Held Shower,Cryogenics Engineer Additional Social History Comment Pt has an adjustable bed. Pt has cared for multiple family members over the years - her who in 2019, her sister, and now her son. She also takes care of multple pets at home including a horse ,boar, chicken, and dog. There are mulitple family members that live in the house including her son who per pt just got his leg amputated. Pt also has a supportive daughter that lives 1.5 miles away. M2 PT-IP Current Condition Start: 01/27/22 08:30 Freq: NEEDED Status: Active Protocol: Document 01/27/22 10:15 AW (Rec: 01/27/22 11:26 AW [id number]) Physical Therapy Current Condition Current Condition Evaluation Date 01/27/22 Treatment Diagnosis TIA vs CVA, frequent falls Onset Date 01/26/22 M3 PT-IP Subjective Start: 01/27/22 08:30 Freq: NEEDED Status: Active Protocol: Document 01/27/22 10:15 AW (Rec: 01/27/22 11:26 AW [id number]) Subjective Physical Therapy Visit Type Type Initial Evaluation Visit Start Time 09:48 Visit Stop Time 10:15 Total Visit Minutes 27 Physical Therapy Visit Comments Patient Comments Pt is hyper-focused on her medication reconciliation and repeatedly expresses concern over missed home meds. Patient Goals Return home to her family and property. Therapy Pain Assessment Pain When Pain Assessed At Rest Pain Present Pain Present Pain Reported Location Back Scale Used not quantified M4 PT-IP Mobility and Gait Start: 01/27/22 08:30 Freq: NEEDED Status: Active Protocol: Document 01/27/22 10:15 AW (Rec: 01/27/22 11:26 AW [id number]) PT-Bed Mobility Assessment Supine to Sit Supine to Sit Independent Scooting Scooting to Edge of Bed Independent PT-Transfer Assessment Sit to and From Stand Sit to and from Stand Independent,Use of Upper Extremities Equipment Transfer Assistive Device None,Gait Belt Orthotic/Prosthetic Devices or Brace: No Transfers Transfer Destination Chair Transfer Technique pt ambulated without AD Transfer Ability Level of Assist Standby Assistance Comments Mobility Comments Pt was lying in bed as PT arrived. BP 126/68 HR 76. She sat up on the right side of the bed and stood IND. She ambulated around the halls a total of 300 feet SBA without AD. She completed Dynamic Gait Index with a score of 21/24 ( single points deducted for head turns, head nods, and stairs). Pt returned to the room and sat on the chair SBA. She was left there with call light and tray table in reach. Gait Assessment Gait Gait Assistance Required: Independent,Standby Assistance Distance (Feet) 300 Assistive Devices Assistive Device None,Gait Belt Orthotic/Prosthetic Devices or Brace: No Gait Deviations General Gait Pattern Decreased Stride Length Factors Limiting Gait Function Factors Limiting Gait Function Decreased Sensation,Decreased Strength,Poor Balance Comments Gait Comments See mobility comments for details. No overt LOB was observed but pt did require SBA for gait with head turns and nods. Stair Climbing Assessment Evaluation Level of Assist On Stairs Independent Devices Stair Climbing Assistive Devices Left Railing Technique/Endurance Stair Climbing Direction Ascend and Descend Stair Climbing Technique Step Over Step Number of Steps Climbed 3 Query Text: Stair Climbing Set # Repetitions (reps) 2 Comments Stair Climbing Comments Good foot clearance bilaterally, no safety concerns. PT-Balance Assessment Sitting Balance and Reactions Static Sitting Balance Ability Normal Dynamic Sitting Balance Ability Normal Standing Balance and Reactions Static Standing Balance Ability Good Dynamic Standing Balance Ability Good Device Used none Balance Tests Single Limb Standing <10 sec bilaterally Functional Assessments Functional Tests Dynamic Gait Index 21/24 (details in Mobility Comments section) M5 PT-IP Objective Assessments Start: 01/27/22 08:30 Freq: NEEDED Status: Active Protocol: Document 01/27/22 10:15 AW (Rec: 01/27/22 11:26 AW [id number]) Orientation Orientation/Cognition Level of Alertness Alert Orientation Name,Day of Week,Place, Situation Language Function Ability No Deficits Noted Safety Awareness Understands Safety Issues Memory Description No Deficits Noted Gross Range of Motion Upper Extremity ROM Assessment Within Functional Limits Lower Extremity ROM Assessment Within Functional Limits Strength Upper Extremity Strength Assessment Left Impaired Lower Extremity Strength Assessment Bilaterally Impaired Comments Strength Comments RUE 4/5; LUE 4-/5 BLE grossly 4/5 to 4+/5 with no unilateral deficit appreciated Coordination Assessment Gross Coordination Gross Coordination Impaired Assessment Finger to Nose Test Minimal Impairment Pronation/Supination Test Minimal Impairment Foot Tapping Test Normal Performance Coordination Comments LUE shows lag in rapid pronation/supination and misses targets by ~1cm on finger to nose with eyes open Sensation Assessment Sensation Gross Sensation Left UE Impaired,Left LE Impaired Light Touch Impaired Proprioception (Position) Impaired Sensation Description Tingling Comments Sensation Comments Pt has chronically dull sensation in dorsal foot. She has new onset dull sensation in her left hand. Muscle Tone Muscle Tone WNL Yes Other Assessments Other Other Assessments Ocular motor exam significant for slight lag in tracking laterally to the right. Head impulse test vaguely positive to the right but all other vestibular screening was WNL. M6 PT-IP Treatment Start: 01/27/22 08:30 Freq: NEEDED Status: Active Protocol: Document 01/27/22 10:15 AW (Rec: 01/27/22 11:26 AW [id number]) Physical Therapy Treatment Education Education Provided Safety M7 PT-IP Assessment and Plan Start: 01/27/22 08:30 Freq: NEEDED Status: Active Protocol: Document 01/27/22 10:15 AW (Rec: 01/27/22 11:26 AW [id number]) PT Summary Assessment and Plan Summary Impairments Strength,Balance,Gait Assessment Summary Ava is a 71 yo woman seen for PT evaluation per stroke protocol. She is independent to modified independent at baseline with occasional use of SPC. She falls regularly which she attributes to vertigo and to inattention. She presented to ED yesterday with slurred speech, headache, right facial droop and incoordination which are resolved as of today . PMH includes migraines, Sjogren's disease, sinus bradycardia, and CHFrEF (35-40 % on echo today). Pt presents with mild LUE weakness and incoordination at this assessment. She scored 21/24 on Dynamic Gait Index which does not capture her falls risk unfortunately. Pt needed no more than SBA for all mobility without AD at this assessment and is safe to discharge home with assist and outpatient PT to address vestibular and balance deficits. Goals Transfer Goal Independent Gait Goal Independent Gait Distance 300 Other Goals - up/down 6 steps with unilateral rail IND Frequency of Treatment Frequency Of Treatment Once a Day Treatment Plan Physical Therapy Treatment Plan Gait Training,Therapeutic Exercise,Balance Retraining, Discharge Planning, Neuromuscular Re-ed Other Recommendations and Next Treatment static and dynamic balance Focus Precautions Other Precautions frequent falls Recommendations To Nursing Amount of Assist Needed Standby Assistance Discharge Recommendations PT Discharge Recommendations Home with Assistance, Outpatient PT Other Discharge Recommendations Vestibular and balance-focused PT in outpatient setting. Transportation Needs at Discharge Private Vehicle
--- NOTE | 2022-01-27 15:00 | ST.IPSLE ---
Visit Care Team Role Provider Type Maximo Vivas MD Primary Care Provider Physician Specialty: Family Practice Address: [address], [address], [place], [address] Email: Jose López DO Emergency Provider Physician Referring Provider Specialty: Emergency Medicine Address: [address] [place] [address], [address] Email: [email or web address] Lloyd Admit Provider Physician Attending Provider Specialty: Internal Medicine Address: [address] [place] [address], [address] Email: [email or web address] Medical History (Last Reviewed 01/27/22 @ 03:16 by Jose López DO) History of spinal fracture (Medical) Migraine (Medical) Sjogren's disease (Medical) Systolic CHF with reduced left ventricular function, NYHA class 3 (Medical) Speech-Language Pathology Speech/Language Eval [facility] Adult Cognitive Linguistic Eval Start: 01/27/22 11:45 Freq: Status: Active Protocol: Document 01/27/22 11:47 EK (Rec: 01/27/22 12:22 EK [id number]) Adult Cognitive Linguistic Evaluation Session Time Visit Start Time 10:45 Visit Stop Time 11:30 Total Visit Minutes 45 Referral Referring Provider Eliza Medrano Reason for Referral Suspected Stroke/TIA Setting Assessment Location Acute Care Visit Type Note Type Initial evaluation Next Note Type Next Note Type Treatment Note Patient Information Identification Type Name,Wristband Patient History Pt is a 71-year-old female who was admitted into the hospital for suspected stroke/ TIA. Per H&P: ?[she] was in her usual state of health at [facility] reading a scripture when she became confused then became unaware of the time and date and was having difficulties reading from her tablet. She realize that she was also speaking in a slurred matter. She has had a headache all day since this occurred? Brain CT was negative for any acute intracranial process, head neck CTA indicated focal narrowing of the right carotid bulb of up to 50%, no high- grade stenosis or occlusion of the central intracranial arteries?. At the time of admittance, she denied difficulty with her speech and swallowing. Recent MRI shows ?normal brain MRI for age?. Language(s) Spoken in the Home Thai Education Level Some college Hearing Hearing Level Impaired Auditory History Reports some HL in right ear Vision Vision Status Impaired Comments Wears glasses Subjective Patient Report Pt was slightly reclined in bed upon [facility] and [facility] environmental engineering intern arrival. Pt sat upright in bed for PO trials. Pt denied any changes in her speech pattern but reported that she has had mild WFD prior to her suspected stroke/TIA. Pt reported that since yesterday she has been experiencing mild confusion and overall her thinking has been fuzzy. Pt repeatedly stated that her cognition is not at her normal baseline. Pt reported that she has had difficulty swallowing for awhile with choking episodes that cause her to vomit happening at least once a week. Pt indicated that she has scar tissue in her throat that is contributing to this issue that she needs to get removed. Location Right Shoulder Mental Status Alert,Responsive,Cooperative Assessment Oral Motor Examination Completed Yes Results Dental decay and mild labial weakness was noted, otherwise, structures and coordination was WFL. Recommended pt perform labial exercises such as puffing up her cheeks and alternating air from cheek to cheek to improve strength and coordination. Assessed pt's swallow with regular texture and thin liquids. Pt demonstrated no overt signs of penetration/aspiration. Pt did clear her throat several times throughout the assessment but she reported she typically has a dry cough. Provided education and a handout about safe swallow strategies and possible diet modifications to reduce number of choking episodes. Formal Assessment Standardized Test/Screener Type [facility] Mental Status ([facility]) Administration Complete Results Pt scored 25/30 points indicating mild cognitive impairment. There were several sections of the exam where the pt almost lost points but self-corrected at the last moment. Pt lost points by: remembering 4/5 objects, drawing the time incorrectly for a clock-drawing task, and incorrectly answering a short story question. Pt reported that this is not her typical baseline of functioning. Findings/Results Language Function Within normal limits Cognitive Function Mildly impaired Findings Pt's speech and language was WFL for ego-centric conversation. Pt's results on the cognitive testing as well as her self-reporting indicate that the pt's cognitive function is mildly impaired. Cognitive Communication Deficits Self-awareness of Cognitive- Situational awareness ( Communication Deficits recognition of problem in context;in real time) Prognosis Prognosis Good Based on Cognitive status,Family support,Comorbidities,Duration of symptoms/severity,Time since onset Plan of Care Speech-Language Treatment Yes Frequency Follow Up During Hospital Stay ; May be appropriate for outpatient therapy Patient/Caregiver Education Described results of evaluation,Patient expressed understanding of evaluation, Patient expressed agreement with goals and treatment plans ,Patient expressed understanding of safety precautions,Patient expressed understanding of feeding recommendations,Patient requires further education/ training Short Term Goals 1. Pt will follow safe swallow strategies to decrease frequency of choking episodes. 2. Pt will participate in further cognitive testing to establish new baseline and guide POC. Electronics Teacher Goals 1. Pt will continue to tolerate least restrictive diet to meet all of her dietary and hydration needs. 2. Pt will have cognitive skills sufficient WFL to perform requirements of her activities of daily living. Discharge Recommendations Home,Outpatient therapy [facility] Clinical Instructor Line Start: 01/27/22 11:48 Freq: Status: Active Protocol: Document 01/27/22 14:31 NGUYỄN (Rec: 01/27/22 14:31 [id number]) Clinical Instructor Signature Clinical Instructor Clinical Instructor Yes
--- NOTE | 2022-01-27 15:19 | PC.NURSE ---
Pt is A&Ox3, VSS, afebrile on RA. Pt is on telemetry RRR with BBB. She denies LAWSON, N/V, vision distrubances, dizziness, SOB, palpitations or Chest pain. She is able to ambulate with steady gait around the room. ECHO, and MRI completed this a.m. [employer] SYSTEM OPERATOR and PT/OT clear patient. She has an NIH of 2, with a extremely slight drift of R hand and and very slight droop with smiling of R side of mouth. She is evaluated by MD and cleared for discharge this afternoon. She verbalizes understanding of new medications, discharge plans, worsening symptoms, symptoms of stroke and follow up plan. She is escorted via w'/ch with all of her belongings to private vehicle with her daughter for discharge home at approximately 1340 this afternoon.
== END 2022-01-27 13:40 | disposition home or self-care (01) ==
LOC: ED 21:07 → AC 21:28
PROVIDERS: Admitting Provider Nurse Practitioner Family; Emergency Provider Emergency Medicine; PCP Family Medicine; Referring Provider Emergency Medicine; Visit Provider Nurse Practitioner Family
DX: R41.0 Disorientation, unspecified (principal); R29.704 NIHSS score 4; M35.00 Sjogren syndrome, unspecified; I50.20 Unspecified systolic (congestive) heart failure; G43.909 Migraine, unspecified, not intractable, without status migrainosus; Z20.822 Contact with and (suspected) exposure to COVID-19; R03.0 Elevated blood-pressure reading, without diagnosis of hypertension; I49.3 Ventricular premature depolarization
CPT/HCPCS: 36415; 70450; 70496; 70498; 70551; 80048; 80053; 80061; 80320; 81003; 82550; 82553; 82962; 83036; 83690; 83735; 83880; 84443; 84484; 85025; 85610; 85730; 87635; 92507; 92610; 93005; 93010; 93306; 96360; 96372; 97162; 97165; 99285; C9803; G0378; Q3014; J1650

== ENCOUNTER → 2022-04-23 16:18 | Outpatient (CLI) | payer MEDICARE, SELFPAY ==
[2022-01-26 22:18] VITALS: BMI 25.6
--- NOTE | 2022-04-23 | DI.RAD.S_ITS ---
PROCEDURE: XR KNEE LT 3V INDICATIONS: left knee pain, fall last week TECHNIQUE: 3 views of the knee were acquired. COMPARISON: None. FINDINGS: Bones: No fractures or dislocations. Mild tricompartmental osteoarthritis is seen with joint space narrowing and subchondral sclerosis. There is no significant patellar subluxation. No suspicious bony lesions. Soft tissues: No joint effusion. No suspicious soft tissue calcifications. IMPRESSION: No left knee fracture or dislocation. Mild tricompartmental osteoarthritis. No significant joint effusion. Dictated by: Monico Reed M.D. on 04/23/2022 at 17:10 Approved by: Monico Reed M.D. on 04/23/2022 at 17:10
--- NOTE | 2022-04-23 | DI.RAD.S_ITS ---
PROCEDURE: XR CHEST 2V INDICATIONS: chest pain TECHNIQUE: 2 views of the chest were acquired. COMPARISON: [facility], CR, XR CHEST 1V, 10/28/2020, 16:30. FINDINGS: Surgical changes and devices: None. Lungs and pleura: Lungs are clear. No pleural effusions or pneumothorax. Mediastinum: Mediastinal contours are normal. Heart size is normal. Bones and chest wall: No suspicious bony abnormalities. Soft tissues appear unremarkable. IMPRESSION: No acute cardiopulmonary pathology. Dictated by: Monico Reed M.D. on 04/23/2022 at 17:10 Approved by: Monico Reed M.D. on 04/23/2022 at 17:10
== END ==
PROVIDERS: PCP Family Medicine; Referring Provider Family Medicine; Visit Provider Family Medicine
DX: R07.9 Chest pain, unspecified (principal); M25.562 Pain in left knee; M17.12 Unilateral primary osteoarthritis, left knee
CPT/HCPCS: 71046; 73562

== ENCOUNTER → 2022-07-03 08:58 | Outpatient (CLI) | payer MEDICARE, SELFPAY ==
[2022-01-26 22:18] VITALS: BMI 25.6
--- NOTE | 2022-07-03 09:39 | DI.ECHO.S_ITS ---
Interpretation Summary 1) Normal left ventricular size and thickness with mildly to moderately reduced systolic function (EF 40- 45%). 2) Normal right ventricular size and function. 3) Mild mitral regurgitation present. 4) Compared to the Echo done 01/27/2022, LVEF has inproved from 35-40% to 40- 45% on this study. Procedure: A two-dimensional transthoracic echocardiogram with color flow and Doppler was performed. The study quality was technically adequate. Comparison is made with the echocardiogram of 01/27/2022. The patient was in normal sinus rhythm during the exam. Left Ventricle: The left ventricle is normal in size and wall thickness. Left ventricular systolic function is mild to moderately reduced. The ejection fraction is estimated to be 40-45%. There is mild to moderate global hypokinesis of the left ventricle. Diastolic parameters suggest a relaxation abnormality of the left ventricle, consistent with probable normal filling pressures. Right Ventricle: The right ventricle is normal in size and function. Atria: Both atria are normal in size. The interatrial septum grossly appears intact with no obvious evidence for an atrial septal defect. Mitral Valve: The mitral valve is normal in structure and function. There is mild mitral regurgitation. Aortic Valve: The aortic valve is normal in structure and function. No aortic regurgitation is present. Tricuspid Valve: The tricuspid valve is normal in structure and function. There is mild tricuspid regurgitation. The right ventricular systolic pressure is estimated to be at least 25 mmHg based on an estimated right atrial pressure of 3 mm Hg. Pulmonic Valve: The pulmonic valve is normal in structure and function. There is mild pulmonic regurgitation. Great Vessels: The aortic root is normal size. The dimensions of the ascending aorta are normal. The IVC is of normal diameter and collapses greater than 50% with a sniff. This suggests a low right atrial pressure of 3 mm Hg. Pericardium/ Pleura There is no pericardial effusion. There is no pleural effusion. MMode/2D Measurements & Calculations LVIDd: 5.1 cm LVOT diam: 2.2 cm LVIDs: 3.9 cm Ao root diam: 2.8 cm FS: 23.5 % asc Aorta Diam: 3.1 cm IVSd: 0.90 cm LVPWd: 0.80 cm LV alvarado. diameter/BSA (cm/m^2): 3.1 LV sys. diameter/BSA (cm/m^2): 2.4 LA dimension: 3.3 cm RA long axis: 4.4 cm LA A2 area: 14.2 cm2 LA A4 area: 16.6 cm2 LA length (vol): 4.8 cm LA vol: 41.9 ml LA vol index: 25.3 ml/m2 LVLs ap4: 6.2 cm LVLd ap2: 6.7 cm LVLs ap2: 5.6 cm TAPSE_phl: 2.3 cm Doppler Measurements & Calculations Ao V2 max: 102.0 cm/sec LVOT Max Giovanni: 63.3 cm/sec Ao V2 mean: 76.9 cm/sec LV V1 max P.6 mmHg Ao max P.0 mmHg LV V1 VTI: 17.2 cm Ao mean P.0 mmHg KAN(I,D): 2.6 cm2 Ao V2 VTI: 25.0 cm KAN(V,D): 2.4 cm2 sev ratio: 0.69 KAN indexed to BSA (cm^2/m^2): 1.6 MV E max giovanni: 70.3 cm/sec TR max giovanni: 232.0 cm/sec MV A max giovanni: 102.0 cm/sec TR max P.5 mmHg MV E/A: 0.69 Med Peak E' Giovanni: 5.0 cm/sec E/E' med: 14.0 Lat Peak E' Giovanni: 9.8 cm/sec E/E' lat: 7.2 E/e' average: 10.6 MV dec time: 0.23 sec SV(LVOT): 65.4 ml AV VR_phl: 0.62 KAN(VTI)/BSA_phl: 1.6 MV P1/2t-pr_phl: 68.0 msec Reading Physician:05:[id number] PM
[2022-07-03 12:32] LABS: Add Manual Diff / Slide Review NO; Basophils Absolute Auto 0 /uL (0-100); Basophils Percent Auto 0.7 % (0-2); Eosinophils Absolute Auto 100 /uL (0-450); Eosinophils Percent Auto 2.2 % (2-4); Hematocrit 40.3 % (36-46); Hemoglobin 13.4 g/dL (12.0-16.0); Lymphocytes Absolute Auto 1400 /uL (1100-4500); Lymphocytes Percent Auto 27.5 % (25-40); Mean Corpuscular HGB Conc 33.2 % (30-36); Mean Corpuscular Hemoglobin 30.4 PG (26-34); Mean Corpuscular Volume 91.6 fL (80-100); Monocytes Absolute Auto 500 /uL (0-900); Monocytes Percent Auto 9.5 % (3-14); Neutrophils Absolute Auto 3100 /uL (1500-7000); Neutrophils Percent Auto 60.1 % (50-75); Platelet Count 214 X10^3/uL (150-400); Red Cell Distribution Width 14.6 % (11.6-14.8); White Blood Cell Count 5.1 X10^3/uL (4.5-11.0)
[2022-07-03 12:57] LABS: BUN Creatinine Ratio 14.3 (6-22); Blood Urea Nitrogen 10 mg/dL (7-17); Calcium 9.4 mg/dL (8.4-10.2); Carbon Dioxide 27 mmol/L (22-32); Chloride 103 mmol/L (98-107); Cholesterol 123 mg/dL (140-199); Estimated Glomerular Filt Rate > 60 mL/min (>60); Glucose 92 mg/dL (80-110); HEMOLYSIS < 15 (0-50); Sodium 138 mmol/L (137-145); Triglycerides 87 mg/dL (35-150)
[2022-07-03 13:07] LABS: HDL Cholesterol 57 mg/dL (40-60); LDL Cholesterol Calculated 49 mg/dL (<100)
== END ==
PROVIDERS: PCP Family Medicine; Referring Provider Internal Medicine Cardiovascular Disease; Visit Provider Internal Medicine Cardiovascular Disease
DX: I50.22 Chronic systolic (congestive) heart failure (principal); I08.1 Rheumatic disorders of both mitral and tricuspid valves; E78.5 Hyperlipidemia, unspecified
CPT/HCPCS: 36415; 80048; 80061; 85025; 93306

== ENCOUNTER → 2023-01-05 11:30 | Outpatient (CLI) | payer MEDICARE, SELFPAY ==
[2022-01-26 22:18] VITALS: BMI 25.6
[2023-01-05 14:11] LABS: Add Manual Diff / Slide Review NO; Basophils Absolute Auto 0 /uL (0-100); Basophils Percent Auto 0.7 % (0-2); Eosinophils Absolute Auto 100 /uL (0-450); Eosinophils Percent Auto 1.4 % (2-4); Hematocrit 39.5 % (36-46); Hemoglobin 13.4 g/dL (12.0-16.0); Lymphocytes Absolute Auto 1500 /uL (1100-4500); Lymphocytes Percent Auto 21.5 % (25-40); Mean Corpuscular HGB Conc 33.9 % (30-36); Mean Corpuscular Volume 91.6 fL (80-100); Monocytes Absolute Auto 600 /uL (0-900); Monocytes Percent Auto 7.9 % (3-14); Neutrophils Absolute Auto 4800 /uL (1500-7000); Neutrophils Percent Auto 68.5 % (50-75); Platelet Count 244 X10^3/uL (150-400); Red Blood Cell Count 4.32 X10^6/uL (4.0-5.2); Red Cell Distribution Width 14.1 % (11.6-14.8)
[2023-01-05 14:51] LABS: BUN Creatinine Ratio 12.3 (6-22); Blood Urea Nitrogen 9 mg/dL (7-17); Calcium 8.9 mg/dL (8.4-10.2); Carbon Dioxide 31 mmol/L (22-32); Chloride 101 mmol/L (98-107); Estimated Glomerular Filt Rate > 60 mL/min (>60); Glucose 101 mg/dL (80-110); HEMOLYSIS < 15 (0-50); Potassium 4.1 mmol/L (3.4-5.1); Sodium 137 mmol/L (137-145)
== END ==
PROVIDERS: PCP Family Medicine; Referring Provider Internal Medicine Cardiovascular Disease; Visit Provider Internal Medicine Cardiovascular Disease
DX: I50.22 Chronic systolic (congestive) heart failure (principal)
CPT/HCPCS: 36415; 80048; 85025

== ENCOUNTER → 2023-01-09 11:49 | Outpatient (CLI) | payer MEDICARE, SELFPAY ==
[2022-01-26 22:18] VITALS: BMI 25.6
--- NOTE | 2023-01-09 | DI.RAD.S_ITS ---
PROCEDURE: XR FOREARM LT 2V INDICATIONS: fall, initial encounter TECHNIQUE: 2 views of the forearm were acquired. COMPARISON: [facility], , FOREARM LEFT, 07/26/2007, 12:29. FINDINGS: Bones: No fractures or dislocations. No suspicious bony lesions. Soft tissues: No suspicious soft tissue calcifications. IMPRESSION: No acute osseous abnormality. If symptoms persist, follow-up radiographs and/or CT or MRI may be helpful for further evaluation. Dictated by: Brad Norton M.D. on 01/09/2023 at 14:34 Approved by: Brad Norton M.D. on 01/09/2023 at 14:36
== END ==
PROVIDERS: PCP Family Medicine; Referring Provider Internal Medicine Cardiovascular Disease; Visit Provider Internal Medicine Cardiovascular Disease
DX: W19.XXXA Unspecified fall, initial encounter (principal); G89.11 Acute pain due to trauma
CPT/HCPCS: 73090

== ENCOUNTER → 2023-10-23 11:21 | Outpatient (CLI) | payer MEDICARE, SELFPAY ==
[2022-01-26 22:18] VITALS: BMI 25.6
--- NOTE | 2023-10-23 | DI.RAD.S_ITS ---
PROCEDURE: XR KNEE LT 3V INDICATIONS: left knee pain TECHNIQUE: 3 views of the knee were acquired. COMPARISON: [facility], , XR KNEE LT 3V, 04/23/2022, 16:31. FINDINGS: Bones: No acute fractures or dislocations. No suspicious bony lesions. Minimal marginal osteophyte formation is noted. Soft tissues: No joint effusion. No suspicious soft tissue calcifications. IMPRESSION: No acute bony abnormality or significant effusion. Minimal osteoarthrosis. Approved by: Brad Flaherty M.D. on 10/23/2023 at 13:03
--- NOTE | 2023-10-23 | DI.RAD.S_ITS ---
PROCEDURE: XR LUMBAR SPINE 2-3V INDICATIONS: LOW BACK PAIN TECHNIQUE: 3 views of the lumbar spine were acquired. COMPARISON: [facility], DAAM, XR LUMBAR SPINE 2-3V, 03/08/2020, 8:27. [facility], ADAM, L-SPINE 2-3 VIEWS, 04/02/2016, 13:35. FINDINGS: Bones: 5 cav-sta-scnttpt vertebrae are present. Mild scoliotic curvature.. No vertebral body compression fractures. No suspicious bony lesions. Multilevel disc space narrowing degenerative endplate changes and facet hypertrophy. Soft tissues: Overlying bowel gas pattern is normal. No suspicious soft tissue calcifications. IMPRESSION: Moderate multilevel spondylosis, mildly progressed when compared to the exam from 03/08/2020. Mild scoliotic curvature. Approved by: Brad Flaherty M.D. on 10/23/2023 at 13:01
== END ==
PROVIDERS: PCP Family Medicine; Referring Provider Family Medicine; Visit Provider Family Medicine
DX: M47.816 Spondylosis without myelopathy or radiculopathy, lumbar region (principal); M54.50 Low back pain, unspecified; M25.562 Pain in left knee
CPT/HCPCS: 72100; 73562

== ENCOUNTER → 2023-12-03 10:30 | Outpatient (CLI) | payer MEDICARE, SELFPAY ==
[2022-01-26 22:18] VITALS: BMI 25.6
--- NOTE | 2023-12-03 10:32 | DI.RAD.S_ITS ---
PROCEDURE: XR DEXA AXIAL SKELETON INDICATIONS: BONE DENSITY SCREENING COMPARISON: [facility], CR, XR DEXA AXIAL SKELETON, 05/21/2021, 12:17. FINDINGS: Lumbar Spine: Bone mineral density 1.140 g/cm2, T score 0.8, normal. Left Hip: Bone mineral density 0.855 g/cm2, T score -0.7, normal. Left Femoral Neck: Bone mineral density 0.647 g/cm2, T score -1.8, osteopenia. Right Hip: Bone mineral density 0.837 g/cm2, T score -0.9, normal. Right Femoral Neck: Bone mineral density 2.624 g/cm2, T score -2.0, osteopenia. Fracture Risk Calculation (when applicable): 10-year fracture risk of a major osteoporotic fracture 19% and of a hip fracture 3.6%. (T score greater or equal to -1.0 to: NORMAL) (T score from -1.1 to -2.4: OSTEOPENIA) (T score less than or equal to -2.5: OSTEOPOROSIS) IMPRESSION: 1. Based on WHO criteria, the patient has osteopenia and increased fracture risk. 2. Cannot assess statistical significance of bone mineral density differences between the current exam and the last exam because of difference in scan types and analysis methods. Follow-up guidelines as follows: Osteoporosis: Consider a repeat DEXA and Vertebral Fracture Assessment (VFA) exam in 2 years or sooner if medically necessary, to reassess this patient's status. Osteopenia: Consider a repeat DEXA in 2-3 years to reassess this patient's status, or if there is a new clinical indication. Normal: Consider a repeat DEXA in 5 years or sooner, or if there is a new clinical indication. Dictated by: Yessenia Crespo M.D. on 12/03/2023 at 11:38 Approved by: Yessenia Crespo M.D. on 12/03/2023 at 11:41
== END ==
PROVIDERS: PCP Family Medicine; Referring Provider Family Medicine; Visit Provider Family Medicine
DX: M85.89 Other specified disorders of bone density and structure, multiple sites
CPT/HCPCS: 77080

== ENCOUNTER → 2023-12-25 10:57 | Outpatient (CLI) | payer MEDICARE, SELFPAY ==
[2022-01-26 22:18] VITALS: BMI 25.6
--- NOTE | 2023-12-25 11:00 | DI.RAD.S_ITS ---
PROCEDURE: XR CERVICAL SPINE 2V OR 3V INDICATIONS: Cervicalgia TECHNIQUE: 3 view(s) of the cervical spine were acquired. COMPARISON: [facility], CT, CT CERVICAL SPINE WITHOUT CONTRAST, 05/23/2022, 21:50. FINDINGS: Bones: No fractures or dislocations to the C7-T1 level. There are multilevel degenerative changes of the cervical spine with facet and uncovertebral arthropathy, disc height loss with degenerative endplate changes and spurring. The lateral masses of C1 appear intact on the odontoid view. No suspicious bony lesions. Soft tissues: No prevertebral soft tissue swelling. IMPRESSION: Multilevel degenerative changes of the cervical spine. Dictated by: Silvio Herbert M.D. on 12/25/2023 at 12:03 Approved by: Silvio Herbert M.D. on 12/25/2023 at 12:08
== END ==
LOC: RAD 10:58
PROVIDERS: PCP Family Medicine; Referring Provider Family Medicine; Visit Provider Family Medicine
DX: M47.812 Spondylosis without myelopathy or radiculopathy, cervical region (principal); M54.2 Cervicalgia
CPT/HCPCS: 72040

== ENCOUNTER → 2024-03-02 12:46 | Outpatient (CLI) | payer MEDICARE, SELFPAY ==
[2022-01-26 22:18] VITALS: BMI 25.6
--- NOTE | 2024-03-02 12:48 | DI.MG.S_ITS ---
BILATERAL DIGITAL SCREENING MAMMOGRAM 3D/2D WITH CAD: 03/02/2024 CLINICAL: Routine screening. Family history of breast cancer. Comparison is made to exam dated: 01/25/2020 mammogram - [facility]. Both breasts are heterogeneously dense, which may obscure small masses (category c / 51-75% glandular tissue). Current study was also evaluated with a Computer Aided Detection (CAD) system. There is a possible developing round high density asymmetry with an obscured margin in the left breast at 1 o'clock anterior depth. No other significant masses, calcifications, or other findings are seen in either breast. IMPRESSION: INCOMPLETE: NEEDS ADDITIONAL IMAGING EVALUATION The possible developing round high density asymmetry in the left breast is indeterminate. Additional views with possible ultrasound are recommended. Based on the Tyrer Cuzick model (a risk assessment model) the patient's lifetime risk is 10.0% and her 10 year risk is 6.9%. According to the ACR, ACS, and NCCN guidelines, an annual breast MRI exam along with mammogram is recommended if the patient's lifetime risk is 20% or greater. This exam was interpreted at Station ID: [id number]. NOTE: For mammograms, a report in lay terms will be sent to the patient. Approximately 15% of breast malignancies will not be visualized mammographically. In the management of a palpable breast mass, a negative mammogram must not discourage biopsy of a clinically suspicious lesion. Electronically Signed By: Lisbeth gonzalez/shanda:03/02/2024 16:06:08 letter sent: Additional Imaging Needed ACR BI-RADS Category 0: Incomplete 3340F
--- NOTE | 2024-03-02 12:49 | DI.RAD.S_ITS ---
PROCEDURE: XR CHEST 2V INDICATIONS: COUGH TECHNIQUE: 2 views of the chest were acquired. COMPARISON: [facility], CR, XR CHEST 2V, 04/23/2022, 16:31. FINDINGS: Surgical changes and devices: None. Lungs and pleura: Lungs are clear. No pleural effusions or pneumothorax. Mediastinum: Mediastinal contours are normal. Heart size is normal. There is tortuosity in the aorta. Bones and chest wall: No suspicious bony abnormalities. Old compression noted in 1 of the lower thoracic vertebral bodies. Soft tissues appear unremarkable. IMPRESSION: No acute cardiopulmonary abnormality is seen. Dictated by: Gerry Boone M.D. on 03/03/2024 at 13:05 Approved by: Gerry Boone M.D. on 03/03/2024 at 13:12
== END ==
PROVIDERS: PCP Family Medicine; Referring Provider Family Medicine; Visit Provider Family Medicine
DX: Z12.31 Encounter for screening mammogram for malignant neoplasm of breast (principal); Z80.3 Family history of malignant neoplasm of breast; R92.333 Mammographic heterogeneous density, bilateral breasts; I25.5 Ischemic cardiomyopathy
CPT/HCPCS: 71046; 77063; 77067

== ENCOUNTER → 2024-03-11 09:06 | Outpatient (CLI) | payer MEDICARE, SELFPAY ==
[2022-01-26 22:18] VITALS: BMI 25.6
--- NOTE | 2024-03-11 09:07 | DI.MG.S_ITS ---
UNILATERAL LEFT DIGITAL DIAGNOSTIC MAMMOGRAM 3D/2D: 03/11/2024 CLINICAL: Additional evaluation requested from prior study. Comparison is made to exams dated: 03/02/2024 mammogram, 01/25/2020 mammogram, and 10/10/2016 mammogram - [facility]. The left breast is heterogeneously dense, which may obscure small masses (category c / 51-75% glandular tissue). There is a possible developing round high density asymmetry with an obscured margin in the left breast at 1 o'clock anterior depth. This is not confirmed in additional views and appears less prominent on today's additional views. No other significant masses or calcifications are seen in the breast. IMPRESSION: INCOMPLETE: NEEDS ADDITIONAL IMAGING EVALUATION The possible developing round high density asymmetry in the left breast is indeterminate. An ultrasound is recommended for further evaluation and is scheduled to immediately follow this examination. Based on the Tyrer Cuzick model (a risk assessment model) the patient's lifetime risk is 10.0% and her 10 year risk is 6.9%. According to the ACR, ACS, and NCCN guidelines, an annual breast MRI exam along with mammogram is recommended if the patient's lifetime risk is 20% or greater. This exam was interpreted at Station ID: [id number]. NOTE: For mammograms, a report in lay terms will be sent to the patient. Approximately 15% of breast malignancies will not be visualized mammographically. In the management of a palpable breast mass, a negative mammogram must not discourage biopsy of a clinically suspicious lesion. Electronically Signed By: Cheng Patel M.D. aty/:03/11/2024 11:43:14 ACR BI-RADS Category 0: Incomplete 3340F
--- NOTE | 2024-03-11 09:08 | DI.US.S_ITS ---
LIMITED ULTRASOUND OF LEFT BREAST AND AXILLA: 03/11/2024 CLINICAL: Patient returns today to evaluate a focal asymmetry in the left breast. Comparison is made to exams dated: 03/11/2024 mammogram, 03/02/2024 mammogram, 01/25/2020 mammogram, 10/10/2016 mammogram, 06/01/2013 mammogram, and 05/27/2011 mammogram - [facility]. Color flow and real-time ultrasound of the left breast 1-2 o'clock, and axilla regions were performed. Ibarra scale images of the real-time examination were reviewed. There is a 0.5 cm x 2 cm oblong, irregular mass that is possibly intraductal noted in the left breast at 1 o'clock anterior depth 1 cm from the nipple. This irregular intraductal mass is hypoechoic. This possibly correlates with mammography findings. Color flow imaging demonstrates that there is vascularity present. There also is duct ectasia in the left breast at 2 o'clock anterior depth with the long axis parallel to the skin. This duct ectasia displays internal echoes. This possibly correlates with mammography findings. Color flow imaging demonstrates that there is no vascularity present. No significant abnormalities were seen sonographically in the left axilla. IMPRESSION: SUSPICIOUS OF MALIGNANCY The 0.5 cm x 2 cm irregular, oblong mass in the left breast at 1 o'clock anterior depth may be intraductal and is at a low suspicion for malignancy. An ultrasound guided biopsy is recommended. No sonographic abnormalities identified in the axilla. No axillary adenopathy. The duct ectasia in the left breast at 2 o'clock anterior depth is consistent with duct ectasia and is probably benign. Follow up left mammogram and ultrasound in 6 months is recommended to document stability. Findings and recommendations were discussed with the patient by Dr. Larsen during today's examination. This exam was interpreted at Station ID: [id number]. Electronically Signed By: Cheng Patel M.D. aty/:03/11/2024 11:48:16 letter sent: Biopsy Required Ultrasound BI-RADS: 4a Low suspicion for malignancy
== END ==
PROVIDERS: PCP Family Medicine; Referring Provider Family Medicine; Visit Provider Family Medicine
DX: R92.8 Other abnormal and inconclusive findings on diagnostic imaging of breast (principal); R92.332 Mammographic heterogeneous density, left breast; N63.21 Unspecified lump in the left breast, upper outer quadrant; N60.42 Mammary duct ectasia of left breast
CPT/HCPCS: 76642; 77065; G0279

== ENCOUNTER → 2024-03-14 10:00 | Outpatient (CLI) | payer MEDICARE, SELFPAY ==
[2022-01-26 22:18] VITALS: BMI 25.6
--- NOTE | 2024-03-14 | DI.RAD.S_ITS ---
PROCEDURE: XR CERVICAL SPINE 2V OR 3V INDICATIONS: Radiculopathy, cervical region TECHNIQUE: 3 view(s) of the cervical spine were acquired. COMPARISON: [facility], CR, XR CERVICAL SPINE 2V OR 3V, 12/25/2023, 10:06. FINDINGS: Bones: No fractures or dislocations to the C7 level. The lateral masses of C1 appear intact on the odontoid view. No suspicious bony lesions. Moderate disc height loss at C6-7. Mild disc height loss at most levels. Diffuse facet arthrosis, most prominent at C4-5, C5-6 and C6-7. Soft tissues: No prevertebral soft tissue swelling. IMPRESSION: Mild to moderate, multilevel degenerative disc disease and diffuse facet arthrosis. Dictated by: Omer Fountain M.D. on 03/14/2024 at 13:42 Approved by: Omer Fountain M.D. on 03/14/2024 at 13:42
== END ==
PROVIDERS: PCP Family Medicine; Referring Provider Family Medicine; Visit Provider Family Medicine
DX: M47.22 Other spondylosis with radiculopathy, cervical region (principal); M50.10 Cervical disc disorder with radiculopathy, unspecified cervical region
CPT/HCPCS: 72040

== ENCOUNTER → 2024-03-23 08:01 | Outpatient (CLI) | payer MEDICARE, SELFPAY ==
[2022-01-26 22:18] VITALS: BMI 25.6
--- NOTE | 2024-03-23 | DI.US.S_ITS ---
PROCEDURE: US BREAST LT LIMITED COMPARISON: [facility], BREAST LT LIMITED, 03/11/2024, 10:24. INDICATIONS: LEFT BREAST MASS BIOPSY CONSULT FINDINGS: IMPRESSION: Dictated by: Royce Rodrigues M.D. on 03/23/2024 at 9:41 Approved by: Royce Rodrigues M.D. on 03/23/2024 at 9:44
--- NOTE | 2024-04-12 08:37 | DI.US.S_ITS ---
Patient Name: ALEC BANG date: 1950 Sex: F Attending Physician: ETIENNE Indications: Date: 03/23/2024 09:44 At the request of: DIANN CLIFTON Procedure: US breast LT limited ULTRASOUND OF LEFT BREAST: 03/23/2024 CLINICAL: Left breast mass biopsy consult. Comparison is made to exams dated: 03/11/2024 ultrasound, 03/11/2024 mammogram, 03/02/2024 mammogram, 01/25/2020 mammogram, 10/10/2016 mammogram, and 06/01/2013 mammogram - [facility]. Color flow and real-time ultrasound of the left breast were performed. The possible intraductal mass in the left breast at 1 o'clock anterior depth is not reproduced on ultrasound today. No significant abnormalities were seen sonographically in the left breast. IMPRESSION: PROBABLY BENIGN The possible intraductal mass in the left breast at 1 o'clock anterior depth is not reproduced on ultrasound today. Biopsy was not performed. This is probably benign. 3 month followup mammogram and ultrasound recommended. The previously described 2:00 finding can be followed in 3 months simultaneously. This exam was interpreted at Station ID: [id number]. Electronically Signed By: Royce Rodrigues M.D. lc/:03/23/2024 09:44:48 letter sent: Followup Recommended Continued Report - Page 2 of 2 Patient Name: ALEC BANG date: 1950 Sex: F Attending Physician: ETIENNE Indications: Date: 03/23/2024 09:44 At the request of: DIANN CLIFTON Procedure: US breast LT limited Ultrasound BI-RADS: 3 Probably benign
== END ==
LOC: US 08:01
PROVIDERS: PCP Family Medicine; Referring Provider Family Medicine; Visit Provider Family Medicine
DX: R92.8 Other abnormal and inconclusive findings on diagnostic imaging of breast (principal)
CPT/HCPCS: 76642

== ENCOUNTER → 2024-03-30 08:58 | Outpatient (CLI) | payer MEDICARE, SELFPAY ==
[2022-01-26 22:18] VITALS: BMI 25.6
--- NOTE | 2024-03-30 | PATH_ITS ---
[facility] Accession Number: [id number] No. of containers..01 Tissue . 01 Material submitted: . breast - LEFT BREAST MASS 1:00 1 CM . 01 Diagnosis: LEFT BREAST MASS 1 O'CLOCK 1 CM, IMAGE-GUIDED BIOPSIES: Small focus of atypical ductal hyperplasia (ADH), please see microscopic description. Background hyalinizing fibrosis and small intraductal papilloma. Negative for in situ or invasive malignancy. MRV 04/04/2024 1724 Local . 01 Electronically signed: . Larry Lewis MD, Pathologist NPI- [id number] . 01 Gross description: . Received is one formalin-filled container labeled with the patient's name and designated left breast mass 1 o'clock 1 cm. The specimen is received with plastic filter in container. The specimen consists of multiple pink-licona to licona-obrien portions of soft tissue which range in size from 0.1 x 0.1 x 0.1 cm to 2.0 x 0.3 x 0.3 cm. All fragments are totally submitted in cassette A1. . Possible collection date and time per requisition 03/30/2024 at 1005 hours. Total fixation time approximately 17 hours. ([id number]) /HOLLIS 03/31/2024 0623 Local . 01 Microscopic: . In order to better evaluate the minute focus of atypical ducts, multiple deeper levels and immunostains are performed with the following results: . CK5/6 shows decreased expression on the area of interest, and Estrogen Receptor immunostain shows strong diffuse positivity. These results along with the morphology support the diagnosis and argue against usual ductal hyperplasia. In addition, p63 and EDMAR immunostains are performed, supporting the absence of invasive malignancy. . Please correlate with the imaging studies. . As part of ongoing chemistry quality control analyst, this case is also reviewed by Dr. Zuleyka Munguia, who agrees with the interpretation. . * This test was developed and its performance characteristics determined by [facility]. It has not been cleared or approved by the U.S. Food and Drug Administration. The FDA has determined that such clearance or approval is not necessary. This test is used for clinical purposes. It should not be regarded as investigational or for research. . 01 Pathologist provided ICD-10: N63.20, R92.8 . 01 CPT . 978661, N15431, F99765 Specimen Comment: A courtesy copy of this report has been sent to [facility] Performed at: [address] [address], [place], [place] [id number] MD Bubba Haro MD Phone: [phone]
--- NOTE | 2024-03-30 08:59 | DI.US.S_ITS ---
ULTRASOUND GUIDED BIOPSY LEFT BREAST USING VACUUM DEVICE WITH MARKING DEVICE INSERTED: 03/30/2024 CLINICAL: Left breast mass. PATIENT CONSENT: Risks (minor bleeding, infection, vasovagal reaction and repeat procedure), benefits and alternatives were explained to the patient and written informed consent was obtained. Correlation is made to exams dated: 03/23/2024 ultrasound, 03/11/2024 ultrasound, 03/11/2024 mammogram, 03/02/2024 mammogram, 01/25/2020 mammogram, and 10/10/2016 mammogram - [facility]. An ultrasound guided biopsy using real-time ultrasound was performed for the irregular shaped mass located in the left breast at 1 o'clock anterior depth. The skin was prepped in the usual manner. Local anesthetic was administered to the access site. A small incision was made in the breast. The abnormality was approached from the lateral aspect. A biopsy needle was placed adjacent to the abnormality under ultrasound guidance. Once the needle was documented to be in the correct location, a specimen was obtained using the Mammotome biopsy system. The patient received additional topical anesthetic during the procedure. A titanium clip was inserted into the biopsy cavity. The specimen was sent to the laboratory for pathological analysis. IMPRESSION: ULTRASOUND GUIDED BIOPSY HIGH RISK BENIGN Ultrasound guided biopsy of the mass in the left breast at 1 o'clock anterior depth, 1 cm from the nipple was successful. Pathology revealed high risk small focus of atypical ductal hyperplasia (ADH), background hyalinizing fibrosis and small intraductal papilloma. Pathology is concordant with imaging. Recommend surgical consult for discussion of possible excision. This exam was interpreted at Station ID: [id number] Estrella Friedman M.D., Ph.D. [facility],/:04/06/2024 01:45:00 Entry: - 04/06/2024 08:34:05
--- NOTE | 2024-03-30 09:00 | DI.MG.S_ITS ---
UNILATERAL LEFT DIGITAL DIAGNOSTIC MAMMOGRAM 3D/2D - LEFT BREAST POST-PROCEDURE IMAGING FOR MARKER PLACEMENT: 03/30/2024 CLINICAL: Post clip. Comparison is made to exams dated: 03/11/2024 mammogram, 03/02/2024 mammogram, and 01/25/2020 mammogram - [facility]. The breasts are heterogeneously dense, which may obscure small masses (category c / 51-75% glandular tissue). There is a marker clip in the appropriate position in the left breast anterior depth region seen on the craniocaudal view only. This marker clip placement is at the biopsy site. IMPRESSION: POST PROCEDURE MAMMOGRAM FOR MARKER PLACEMENT There was a successful marker clip placement in the left breast anterior depth region seen on the craniocaudal view only. Future imaging is recommended as follows: 06/22/2024 mammogram and an ultrasound, 09/10/2024 left mammogram and an ultrasound. Based on the Tyrer Cuzick model (a risk assessment model) the patient's lifetime risk is 10.0% and her 10 year risk is 6.9%. According to the ACR, ACS, and NCCN guidelines, an annual breast MRI exam along with mammogram is recommended if the patient's lifetime risk is 20% or greater. This exam was interpreted at Station ID: [id number]. NOTE: For mammograms, a report in lay terms will be sent to the patient. Approximately 15% of breast malignancies will not be visualized mammographically. In the management of a palpable breast mass, a negative mammogram must not discourage biopsy of a clinically suspicious lesion. Electronically Signed By: Estrella coelho/:03/31/2024 18:13:00 Entry: - 04/01/2024 14:20:28 ACR BI-RADS Category Post-Procedure Mammogram for Marker Placement
== END ==
LOC: US 08:59
PROVIDERS: PCP Family Medicine; Referring Provider Family Medicine; Visit Provider Family Medicine
DX: R92.8 Other abnormal and inconclusive findings on diagnostic imaging of breast (principal); D24.2 Benign neoplasm of left breast; N60.92 Unspecified benign mammary dysplasia of left breast; N60.32 Fibrosclerosis of left breast; R92.333 Mammographic heterogeneous density, bilateral breasts
CPT/HCPCS: 19083; 77065

== ENCOUNTER 2024-05-02 07:35 | Day surgery (SDC) | payer MEDICARE, SELFPAY ==
[2022-01-26 22:18] VITALS: BMI 25.6
[2024-04-27 12:18] VITALS: BMI 26.2
--- NOTE | 2024-05-02 | DI.MG.S_ITS ---
SPECIMEN: 05/02/2024 CLINICAL: Left breast specimen. Correlation is made to exams dated: 03/30/2024 mammogram, 03/11/2024 mammogram, 03/02/2024 mammogram, 01/25/2020 mammogram, and 05/02/2024 [facility]. Left breast lumpectomy specimen contains the vision biopsy clip and the localization wire. IMPRESSION: SPECIMEN Left breast lumpectomy specimen contains the vision biopsy clip and the localization wire. This exam was interpreted at Station ID: [id number]. Griffin Gan M.D. slc/:05/03/2024 10:47:49
--- NOTE | 2024-05-02 | PATH_ITS ---
[facility] Accession Number: [id number] No. of containers..01 Tissue . 01 Material submitted: . breast - LEFT BREAST . 01 Diagnosis: Left Breast, Lumpectomy: Ductal Carcinoma In Situ (DCIS) is present. Negative for invasive carcinoma. Estimated size (extent of ductal carcinoma in situ) is approximately 1.5-2 mm. Number of blocks with DCIS: Three blocks. Number of blocks examined: Nine blocks total. Architectural pattern: Cribriform. Nuclear grade: Low, grade 1. Necrosis: Not identified. Microcalcifications: Focal, within DCIS and nonneoplastic tissue. Surgical margins: Negative for DCIS. Distance from DCIS to the closest margins: 2 mm from the closest anterior/green-inked margin, 3 mm from the closest posterior/ black-inked margin and 5 mm from the closest medial/yellow-inked margin. Remaining margins are farther than 5 mm. Additional findings: Atypical Ductal Hyperplasia, hyalinizing fibrosis, dystrophic calcifications and metaplastic ossification, previous biopsy changes, fibrocystic changes and small intraductal papilloma also present. Please see microscopic description. MRV 05/09/2024 1654 Local . 01 Electronically signed: . Larry Lewis MD, Pathologist NPI- [id number] . 01 Gross description: . Received: In formalin with two patient identifiers and left breast. Specimen: A previously inked left lumpectomy: Weight: 7 grams. Measurement: 1.6 cm from anterior to posterior, 5.1 cm medial to lateral, and 2.0 cm superior to inferior. Skin: Absent. Wire: Present, entering laterally and terminating medially. Margins: Inked by the surgeon as follows (the requisition stated the incorrect orientation colors, the surgeon verbally confirmed the following inking scheme): Anterior green, inferior blue, lateral orange, medial yellow, posterior black, superior red. Inking reinforced at the bench. Sliced: From medial to lateral into nine slices. No distinct lesions are identified. Other: The cut surfaces are yellow to white fibroadipose tissue with white fibrous tissue occupying approximately 30% of the cut surface, mostly in slices 1-4. A Vision biopsy clip is found within slice 2 within the fibrous area with no distinct lesion associated with it. The biopsy clip located 0.3 cm from the black margin, 0.4 cm from the blue margin, 0.5 cm from green, 1.0 cm from the red margin, 0.9 cm from the yellow margin, and is widely free from the orange margin. Fixation: Specimen is removed on 05/02/2024, time not provided, cold ischemic time cannot be calculated, and total fixation time is approximately 56 hours. Specimen is submitted entirely as follows: A1: Slice 1 perpendicular. A2-A8: Sequential slices with one slice per cassette and slice 2 with biopsy site in A2. A9: Slice 9, orange margin perpendicular. ([id number]) /MRV 05/09/2024 1654 Local . 01 Microscopic: . Microscopic examination reveals focal ductal carcinoma in situ, low nuclear grade and cribriform pattern without necrosis involving three out of nine total blocks examined. There is no evidence of invasive carcinoma. EDMAR (panepithelial marker performed on block A1) is negative for infiltrating carcinoma. . CK5/6 and ER immunostains performed on blocks A1, A3 and A5 support ductal carcinoma in situ (and atypical ductal hyperplasia over usual ductal hyperplasia). . Ductal carcinoma in situ is located 2 mm from the closest anterior margin, 3 mm from the closest posterior margin, and 5 mm from the closest medial margin. Remaining margins are farther than 5 mm. . * This test was developed and the performance characteristics were validated by [email or web address]. It has not been cleared or approved by the U.S. Food and Drug Administration. . 01 Pathologist provided ICD-10: D05.92 . 01 CPT . 498339, D87601, M61674 Specimen Comment: A courtesy copy of this report has been sent to [phone] Performed at: [address] [address], [place], [place] [id number] MD Bubba Haro MD Phone: [phone]
--- NOTE | 2024-05-02 | DI.MG.S_ITS ---
UNILATERAL LEFT DIGITAL DIAGNOSTIC MAMMOGRAM POST-NEEDLE BIOPSY: 05/02/2024 CLINICAL: Post US Wire Loc. Comparison is made to exams dated: 03/30/2024 mammogram, 03/11/2024 mammogram, 03/02/2024 mammogram, 01/25/2020 mammogram, and 05/02/2024 [facility]. The breasts are heterogeneously dense, which may obscure small masses (category c / 51-75% glandular tissue). Left breast wire localization to the vision biopsy clip in the 1:00 position anterior depth. The wire is immediately adjacent to the biopsy clip. IMPRESSION: POST PROCEDURE MAMMOGRAM FOR MARKER PLACEMENT Left breast wire localization to the vision biopsy clip in the 1:00 position anterior depth is successful. The wire is immediately adjacent to the biopsy clip. This exam was interpreted at Station ID: [id number]. Electronically Signed By: Griffin Gan M.D. slc/:05/03/2024 10:52:51 ACR BI-RADS Category Post-Procedure Mammogram for Marker Placement
[2024-05-02 08:07] VITALS: BMI 26.4
--- NOTE | 2024-05-02 09:19 | DI.US.S_ITS ---
PROCEDURE: US BREAST NEEDLE LOC LT COMPARISON: None. INDICATIONS: left breast mass FINDINGS: Left breast wire localization to the vision biopsy clip in the 1 o'clock position anterior depth. IMPRESSION: Left breast wire localization to the vision biopsy clip in the 1 o'clock position anterior depth. Dictated by: Shakeel Hightower M.D. on 05/13/2024 at 14:29 Approved by: Shakeel Hightower M.D. on 05/13/2024 at 14:30
--- NOTE | 2024-05-02 11:13 | PM.PREOP ---
Pre-operative Note COVID-19 COVID-19 status: Not tested Interval Note History & Physical reviewed/Exam performed by Physician: Yes Changes to H&P: No ASA Class (for procedural sedation): II
[2024-05-02] MEDS: BUPIVACAINE 0.5% W/ EPI (PF) 30 ML VIAL INJ (11:44)
--- NOTE | 2024-05-02 11:48 | SUR.OPER ---
Supine on padded OR bed, head on pillow, left arm secured on padded arm board at <90 degrees abduction, right arm tucked at side, legs uncrossed, safety belt at thigh, tape over blanket over lower legs.
[2024-05-02 12:19] VITALS: BP 110/60; PULSE 91; RESP 12; TEMP 36.5; O2SAT 96
--- NOTE | 2024-05-02 12:19 | P.OP_ITS ---
Operative Date/Time/Diagnoses Date of procedure: 05/02/24 Time of procedure: 12:19 Pre-op diagnosis: Left breast atypical ductal hyperplasia Post-op diagnosis: same Procedure & Clinicians Procedure: Left wire localization lumpectomy Same procedure as scheduled: Yes Surgeon: Yosef Solares Anesthesia Type: General Operative Notes Procedure in detail: The patient had a wire localization performed at Radiology prior to arrival in the perioperative area. The patient was brought to the operating room, placed on the table in the supine position, general anesthesia was induced. Arms were abducted on arm boards. The left breast was prepped and draped in the usual fas hion. A time-out was performed. We made a 6 cm incision just inferior to the wire. We created flaps superior and inferior to the incision and then dissected around the wire. We reached pectoral fascia at the deepest aspect of the dissection. The terminus of the wire appeared to be very superficial near the superior lateral areolar border. We excised a cone of tissue around the wire keeping the wire within the center of the specimen. The specimen was excised with the wire intact. First we performed bedside mammogram operating room which demonstrated clip and wire within the specimen. The specimen was then sent to Radiology for an official specimen mammogram. We then irrigated the wound cavity with sterile saline. Local anesthetic was injected into the muscle layer of the lumpectomy site. A few bleeders were cauterized. Once the wound cavity was hemostatic we injected some local anesthetic into the dermis and closed the incision in layers using multiple interrupted 3-0 Vicryl dermal sutures followed by a running 4-0 Monocryl subcuticular closure. Radiology called the OR reporting that the clip was visualized within the specimen. Steri-Strips were applied followed by dry gauze and a breast binder. EBL: 10 mL Specimen: Left breast tissue Post-operative Condition: stable Disposition: PACU
[2024-05-02 12:25] VITALS: BP 137/109; PULSE 99; RESP 14; O2SAT 99
[2024-05-02 12:29] VITALS: BP 131/70; PULSE 89; RESP 16; O2SAT 92
[2024-05-02 12:35] VITALS: BP 131/62; PULSE 76; RESP 12; O2SAT 100
[2024-05-02] MEDS: OXYCODONE IR 5 MG TABLET PO (12:36)
[2024-05-02 12:40] VITALS: BP 143/46; PULSE 69; RESP 25; TEMP 36.7; O2SAT 99
[2024-05-02 12:46] VITALS: BP 138/63; PULSE 66; RESP 20; O2SAT 100
--- NOTE | 2024-05-02 13:45 | SUR.PHASEII ---
Called Dr. Solares at his office to clarify post-op xarelto instructions. Per MD patient to start Xarelto tomorrow 05/03, patient's daughter, Michelle, notified.
== END 2024-05-02 13:12 | disposition home or self-care (01) ==
PROVIDERS: PCP Family Medicine; Referring Provider Surgery; Visit Provider Surgery
PROC: (CPT 19125; principal; 2024-05-02 11:30)
DX: D05.12 Intraductal carcinoma in situ of left breast (principal); Z17.0 Estrogen receptor positive status [ER+]; Z17.21 Progesterone receptor positive status
CPT/HCPCS: 19125; 19285; 76098; 77065; C1819; J1100; J2405; J2704; J3010

== ENCOUNTER → 2024-08-04 11:00 | Outpatient (CLI) | payer MEDICARE, SELFPAY ==
[2022-01-26 22:18] VITALS: BMI 25.6
[2024-08-04 11:32] LABS: Hematocrit 39.4 % (36-46); Hemoglobin 13.1 g/dL (12.0-16.0); Mean Corpuscular HGB Conc 33.3 % (30-36); Mean Corpuscular Hemoglobin 30.7 PG (26-34); Mean Corpuscular Volume 92.1 fL (80-100); Platelet Count 261 X10^3/uL (150-400); Red Blood Cell Count 4.28 X10^6/uL (4.0-5.2); Red Cell Distribution Width 13.2 % (11.6-14.8); White Blood Cell Count 5.4 X10^3/uL (4.5-11.0)
[2024-08-04 12:22] LABS: Alanine Aminotransferase 16 IU/L (<35); Albumin Globulin Ratio 1.7 (1.0-2.8); Alkaline Phosphatase 69 U/L (38-126); Aspartate Aminotransferase 28 IU/L (14-36); BUN Creatinine Ratio 17.3 (6-22); Bilirubin Total 0.4 mg/dL (0.2-1.3); Blood Urea Nitrogen 13 mg/dL (7-17); Calcium 9.6 mg/dL (8.4-10.2); Carbon Dioxide 30 mmol/L (22-32); Chloride 103 mmol/L (98-107); Cholesterol 146 mg/dL (140-199); Estimated Glomerular Filt Rate > 60 mL/min (>60); Globulin 2.3 g/dL (1.7-4.1); Glucose 100 mg/dL (80-110); HDL Cholesterol 68 mg/dL (40-60); HEMOLYSIS < 15 (0-50); LDL Cholesterol Calculated 60 mg/dL (<100); Magnesium 1.6 mg/dL (1.6-2.3); Potassium 3.8 mmol/L (3.4-5.1); Sodium 137 mmol/L (137-145); Total Protein 6.3 g/dL (6.3-8.2); Triglycerides 91 mg/dL (35-150)
[2024-08-04 12:32] LABS: Vitamin D 25 Hydroxy (D3) 45.5 ng/mL (30.0-100.0)
[2024-08-04 12:46] LABS: Thyroid Stimulating Hormone 1.61 uIU/mL (0.47-4.68)
[2024-08-04 13:22] LABS: Folate 13.6 ng/mL (2.76-20.0); Vitamin B12 > 1000 pg/mL (239-931)
== END ==
LOC: LAB 11:02
PROVIDERS: PCP Family Medicine; Referring Provider Internal Medicine Cardiovascular Disease; Visit Provider Internal Medicine Cardiovascular Disease
DX: C50.312 Malignant neoplasm of lower-inner quadrant of left female breast (principal); Z79.899 Other long term (current) drug therapy; I50.9 Heart failure, unspecified; E55.9 Vitamin D deficiency, unspecified; Z13.29 Encounter for screening for other suspected endocrine disorder; I25.10 Atherosclerotic heart disease of native coronary artery without angina pectoris; D51.9 Vitamin B12 deficiency anemia, unspecified; I50.22 Chronic systolic (congestive) heart failure; Z13.228 Encounter for screening for other metabolic disorders; Z13.220 Encounter for screening for lipoid disorders
CPT/HCPCS: 36415; 80053; 80061; 82306; 82607; 82746; 83735; 84443; 85027

== ENCOUNTER → 2024-10-24 07:51 | Outpatient (CLI) | payer MEDICARE, SELFPAY ==
[2022-01-26 22:18] VITALS: BMI 25.6
--- NOTE | 2024-10-24 07:53 | DI.ECHO.S_ITS ---
[facility] : : [address] : : [place] : : [id number] : : Phone: [phone] Echocardiogram Report + + :Name: ALEC BANG Study Date: 10/24/2024 Height: 61 in : :[facility] ReadingLocation: Weight: 141 lb : : Gender: Female BSA: 1.6 m2 : :: 1950 Age: 74 yrs BP: 129/77 mmHg: :Reason For Study: CARDIOMYOPATHY : :Ordering Physician: ETIENNE, : :DIANN Hassan Performed By: Norma Harrell : :Referring: DIANN CLIFTON : + + Interpretation Summary 1) Normal left ventricular thickness and size with mildly reduced systolic function (EF 45-50%). 2) Normal right ventricular size and function. 3) There is mild to moderate mitral regurgitation. 4) Compared to the echo 07/10/2023, LVEF has decreased from 55-60% to 45-50% on this study. Procedure: A two-dimensional transthoracic echocardiogram with color flow and Doppler was performed. The study quality was technically adequate. Comparison is made with the echocardiogram of 07/11/2023. The heart rate ranged between 61-85 bpm during the study. Left Ventricle: The left ventricle is normal in size and wall thickness. The ejection fraction is estimated to be 45-50%. Septal motion is consistent with conduction abnormality. Right Ventricle: The right ventricle is normal in size and function. Atria: The left atrial size is normal. Right atrial size is normal. There is no Doppler evidence for an interatrial shunt. Mitral Valve: The mitral valve leaflets appear mildly thickened, but open well. The mitral valve chordae are thickened and/or calcified. There is mild to moderate mitral regurgitation. Aortic Valve: The aortic valve is trileaflet. The aortic valve opens well. There is no aortic valve stenosis. No aortic regurgitation is present. Tricuspid Valve: The tricuspid valve leaflets are thin and pliable. There is a trace or physiologic amount of tricuspid regurgitation. Pulmonary artery pressures cannot be estimated because of the lack of a measurable TR jet velocity. Pulmonic Valve: The pulmonic valve leaflets are thin and pliable; valve motion is normal. There is mild pulmonic regurgitation. Great Vessels: The aortic root is normal size. The dimensions of the ascending aorta are normal. The IVC is of normal diameter and collapses greater than 50% with a sniff. This suggests a low right atrial pressure of 3 mm Hg. Pericardium/ Pleura There is no pericardial effusion. There is no pleural effusion. MMode/2D Measurements & Calculations LVIDd: 4.8 cm LVOT diam: 2.2 cm LVIDs: 3.9 cm Ao root diam: 2.8 cm FS: 17.9 % asc Aorta Diam: 3.3 cm EPSS: 1.7 cm Ao Arch Diam (Prox Trans): 2.6 cm IVSd: 0.76 cm LVPWd: 0.66 cm LV alvarado. diameter/BSA (cm/m^2): 2.9 LV sys. diameter/BSA (cm/m^2): 2.4 LA A2 area: 18.3 cm2 RA long axis: 4.7 cm LA A4 area: 13.4 cm2 RA area: 12.4 cm2 LA length (vol): 5.3 cm RA vol: 28.1 ml LA vol: 39.5 ml RA : 17.3 ml/m2 LA vol index: 24.3 ml/m2 IVC diam: 1.1 cm RVD1 (basal): 3.1 cm RVD2 (mid): 2.6 cm TAPSE: 1.7 cm Doppler Measurements & Calculations Ao V2 max: 122.1 cm/sec LVOT Max Giovanni: 72.8 cm/sec Ao V2 mean: 88.8 cm/sec LV V1 max P.1 mmHg Ao max P.0 mmHg LV V1 VTI: 15.6 cm Ao mean P.5 mmHg KAN(I,D): 2.0 cm2 Ao V2 VTI: 28.9 cm KAN(V,D): 2.3 cm2 sev ratio: 0.54 KAN indexed to BSA (cm^2/m^2): 1.3 MV E max giovanni: 62.3 cm/sec PA V2 max: 118.4 cm/sec MV A max giovanni: 87.7 cm/sec PA V2 mean: 75.0 cm/sec MV E/A: 0.71 PA mean P.6 mmHg Med Peak E' Giovanni: 4.5 cm/sec PA pr(Accel): 21.2 mmHg E/E' med: 14.0 Lat Peak E' Giovanni: 7.1 cm/sec E/E' lat: 8.7 E/e' average: 11.3 MV dec time: 0.20 sec SV(LVOT): 59.1 ml Reading Physician:12:44 PM
--- NOTE | 2024-10-24 07:53 | DI.CT.S_ITS ---
PROCEDURE: CT HEAD/BRAIN WO CON INDICATIONS: DIZZINESS AND GIDDINESS TECHNIQUE: Noncontrast 4.5 mm thick angled axial sections acquired from the foramen magnum to the vertex, with coronal and sagittal reformats. For radiation dose reduction, the following was used: automated exposure control, adjustment of mA and/or kV according to patient size. COMPARISON: No prior CT head available for comparison. FINDINGS: Image quality: Diagnostic. Some images are limited by beam hardening artifacts most notably at the base of the skull. Ventricles and cortical sulci are mildly dilated commonly represents a pattern of atrophy. Gudc-fc-ehldrdkg areas of low-attenuation in the periventricular deep white matter commonly related to chronic small vessel ischemic changes. No CT evidence of intracranial hemorrhage, mass lesion, mass effect, acute or subacute infarct. Mild vascular calcifications bilateral cavernous, supraclinoid carotids. Otherwise the orbits, scalp, calvarium, paranasal sinuses and mastoid air cells within normal limits. IMPRESSION: Mild atrophy and chronic white matter small vessel ischemic changes. No CT evidence of intracranial hemorrhage. If symptoms persist or worsen, or there is high clinical suspicion of intracranial abnormality, MRI could be performed. Dictated by: Karthik Begum M.D. on 10/24/2024 at 8:27 Approved by: Karthik Begum M.D. on 10/24/2024 at 8:29
--- NOTE | 2024-10-24 07:54 | DI.US.S_ITS ---
PROCEDURE: US CAROTID DOPPLER BI INDICATIONS: CARDIOMYOPATHY,DIZZINESS AND GIDDINESS TECHNIQUE: Color and pulse Doppler interrogation was performed of both carotid systems, with image documentation and velocity measurements. COMPARISON: None. FINDINGS: Stenosis calculations are based on SRU (Society of Radiologists in Ultrasound) criteria. Right side: Brachial blood pressure: 132/68 mm Hg. Common carotid artery peak systolic velocity: 42 cm/sec. Internal carotid artery peak systolic velocity: 106 cm/sec. Internal carotid artery end diastolic velocity: 41 cm/sec. External carotid artery peak systolic velocity: 33 cm/sec. ICA/CCA peak systolic ratio: 2.5. Ibarra scale imaging description: Iahj-sk-lmawqjsb atherosclerotic calcifications are noted involving carotid bifurcation and proximal internal carotid artery. Incidentally noted are multiple right thyroid nodules measures up to 1.2 x 0.9 x 0.7 cm in size. Possible lymph node adjacent to right internal jugular vein measures 1 x 0.8 x 0.7 cm in size. Percent internal carotid artery stenosis: 50-69%. Vertebral artery: Flow direction is antegrade. Left side: Brachial blood pressure: 134/78 mm Hg. Common carotid artery peak systolic velocity: 61 cm/sec. Internal carotid artery peak systolic velocity: 132 cm/sec. Internal carotid artery end diastolic velocity: 46 cm/sec. External carotid artery peak systolic velocity: 52 cm/sec. ICA/CCA peak systolic ratio: 2.2. Ibarra scale imaging description: Gvsp-ac-qixntfrt atherosclerotic calcifications are noted in distal common carotid artery and proximal internal carotid artery. Percent internal carotid artery stenosis: 50-69%. Vertebral artery: Flow direction is antegrade. IMPRESSION: 1. In the right carotid artery, there is 50-69% stenosis based on peak systolic velocity criteria. 2. In the left carotid artery, there is 50-69% stenosis based on peak systolic velocity criteria. 3. Antegrade vertebral arteries. 4. Possible right neck soft tissue lymph no adjacent to internal jugular vein as above. Suggestion of small right thyroid lobe nodule as above. Dictated by: Monico Reed M.D. on 10/24/2024 at 16:14 Approved by: Monico Reed M.D. on 10/24/2024 at 16:19
== END ==
PROVIDERS: PCP Family Medicine; Referring Provider Family Medicine; Visit Provider Family Medicine
DX: I65.23 Occlusion and stenosis of bilateral carotid arteries (principal); I34.0 Nonrheumatic mitral (valve) insufficiency; R42 Dizziness and giddiness; I42.9 Cardiomyopathy, unspecified; I37.1 Nonrheumatic pulmonary valve insufficiency
CPT/HCPCS: 70450; 93306; 93880